=== PATIENT | male | born 1960 | race Caucasian/White ===

== ENCOUNTER 2024-05-31 17:16 | Inpatient (IN) | payer MEDICAID, SELFPAY ==
[2024-05-31 17:42] VITALS: PULSE 102; RESP 16; O2SAT 99; BMI 22.6
[2024-05-31 17:45] VITALS: BP 170/97; PULSE 99; RESP 18; TEMP 37.6; O2SAT 97
--- NOTE | 2024-05-31 18:23 | EKG_ITS ---
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
--- NOTE | 2024-05-31 18:24 | PD.EDRECHK ---
ED Recheck Abnl Lab Rx-RME/HPI General Chief Complaint: Recheck/Abnormal Lab/Rx Stated Complaint: ABNORMAL LABS Time Seen by Provider: 05/31/24 17:49 Arrival date/time: 05/31/24 17:16 RME / HPI RME / HPI narrative: 64-year-old male patient with significant history of diabetes mellitus, was brought in by EMS for evaluation regarding anemia. Apparently patient was noted to have anemia. Patient denies any complaints. Denies any abdominal pain denies any vomiting denies any vomiting blood or blood in the stool. Patient also denies any constipation. Patient is not taking any blood thinner. Related Data Home Medications ?Medication ?Instructions ?Recorded ?Confirmed acetaminophen 325 mg tablet 650 mg PO Q6H PRN Mild Pain (Scale 01/31/23 01/31/23 Score 1-4) acetaminophen 650 mg rectal 650 mg WA Q6H PRN Mild Pain (Scale 01/31/23 01/31/23 suppository Score 1-4) amino acids-protein hydrolysate 15 1 ea PO BID 01/31/23 01/31/23 gram-100 kcal/30 mL oral liquid pkt (Pro-Stat Sugar Free) ascorbic acid (vitamin C) 500 mg 500 mg PO BID 01/31/23 01/31/23 tablet (Vitamin C) bisacodyl 10 mg rectal suppository 10 mg WA Q72H PRN Constipation 01/31/23 01/31/23 docusate sodium 100 mg capsule 100 mg PO QDAY 01/31/23 01/31/23 gabapentin 400 mg capsule 400 mg PO Q8H 01/31/23 01/31/23 insulin regular human 100 unit/mL See Rx Instructions .Route .COMPLEX 01/31/23 01/31/23 injection solution (Humulin R Regular U-100 Insulin) lorazepam 1 mg tablet 1 mg PO Q8H 01/31/23 01/31/23 magnesium hydroxide 400 mg/5 mL 30 ml PO Q48H PRN Constipation 01/31/23 01/31/23 oral suspension (Milk of Magnesia) multivitamin with iron-mineral 1 tab PO QDAY 01/31/23 01/31/23 ondansetron 4 mg disintegrating 4 mg PO Q6H PRN NAUSEA OR VOMITING 01/31/23 01/31/23 tablet scopolamine base 1 mg over 3 days 1 mg topical Q72H 01/31/23 01/31/23 transdermal patch (Transderm-Scop) sennosides 8.6 mg-docusate sodium 1 tab PO BID 01/31/23 01/31/23 50 mg tablet (Senna with Docusate Sodium) trazodone 100 mg tablet 100 mg PO HS 01/31/23 01/31/23 Previous Rx's ?Medication ?Instructions ?Recorded tamsulosin 0.4 mg capsule 0.4 mg PO QDAY 30 days #30 caps 02/02/23 insulin glargine 100 unit/mL (3 20 unit (0.2 mL) subcut QDAY 30 02/13/23 mL) subcutaneous pen (Lantus days #0 mL Solostar U-100 Insulin) olanzapine 15 mg tablet 15 mg PO HS 30 days #30 tabs 02/13/23 Allergies Allergy/AdvReac Type Severity Reaction Status Date / Time No Known Allergies Allergy Verified 10/31/17 10:14 Review of Systems Review of Systems Narrative Review of Systems: Review of system reviewed and within normal limits except mentioned in HPI ED Exam Narrative Physical exam: VITAL SIGNS: Reviewed. GENERAL APPEARANCE: Alert and interactive, follows commands, no acute distress, HEAD AND FACE: Non-traumatic. ENT: PERRL, pink conjunctivitis, eyelid no trauma, Mucous membrane moist. NECK: Supple, nontender, no nuchal rigidity. CHEST: No tenderness, no crepitus, no paradoxical movement, no retractions. LUNGS: Clear, well ventilated, symmetric, no rales, no wheezing, no ronchi, no stridor, good breath sounds bilaterally. HEART: Regular rate, regular rhythm, no murmur, no gallops. ABDOMEN: Soft, positive bowel sounds, nondistended, no guarding, nontender, no rebound, no masses, RECTAL: Deferred. GENITAL: Deferred. NEUROLOGICAL: Gross motor function intact sensory function intact, Appropriate for age. MUSCULOSKELETAL: low back nontender, full range of motion. EXTREMITIES: Nontender, full range of motion. SKIN: Color pink, dry, no rash, no lacerations, no abrasions, no contusions. LYMPHATICS: Deferred. Course Quality Measures none Orders Category Date Time Status Admit to Inpatient Status Routine Admission 05/31/24 21:14 Active Patient Condition Routine Admission 05/31/24 21:14 Ordered Activity as Tolerated Routine Care 05/31/24 21:15 Ordered Bedside Blood Glucose Q6HR Care 05/31/24 21:18 Active COVID-19 Screening Questionnaire NOW Care 05/31/24 20:58 Active Decision to Admit X1 Care 05/31/24 20:58 Completed EKG (ED ONLY) *Do not use* NOW Care 05/31/24 18:23 Completed NPO NOW Care 05/31/24 21:15 Active Notify provider NEEDED Care 05/31/24 21:14 Active Occult Blood,Stool (Nursing) ONCE Care 05/31/24 18:23 Active Sequential Compression Device QSHIFT Care 05/31/24 21:14 Active Transfuse,blood/blood products ONCE Care 05/31/24 18:23 Active Consult to Gastroenterology Stat Cons 05/31/24 20:57 Ordered Diet NPO (NOW) Diet 05/31/24 21:15 Active CXRP [XR chest 1V portable] Stat Exams 05/31/24 21:24 Completed EKG (ED Only) Stat Exams 05/31/24 18:23 Draft Basic Metabolic Panel AM DRAW Lab 06/01/24 05:00 Ordered Basic Metabolic Panel AM DRAW Lab 06/02/24 05:00 Ordered Basic Metabolic Panel AM DRAW Lab 06/03/24 05:00 Ordered CBC AM DRAW Lab 06/01/24 05:00 Ordered CBC AM DRAW Lab 06/02/24 05:00 Ordered CBC AM DRAW Lab 06/03/24 05:00 Ordered CBC Stat Lab 05/31/24 18:30 Completed Comprehensive Metabolic Panel Stat Lab 05/31/24 18:30 Completed Folate Stat Lab 05/31/24 20:16 Received Haptoglobin* Stat Lab 05/31/24 Ordered Iron Panel Stat Lab 05/31/24 20:16 Completed LDH (Lactate Dehydrogenase) Stat Lab 05/31/24 18:30 Completed Partial Thromboplastin Time Stat Lab 05/31/24 18:30 [address] Path Review Blood Smear Stat Lab 05/31/24 18:30 Completed Prothrombin Time with INR Stat Lab 05/31/24 18:30 Completed Red Blood Cells Stat Lab 05/31/24 18:30 Results Reticulocyte Count Stat Lab 05/31/24 20:16 Completed Type and Screen Stat Lab 05/31/24 18:30 Results Urinalysis Stat Lab 05/31/24 18:23 Ordered Vitamin B12 Stat Lab 05/31/24 20:16 Received Acetaminophen Tab [Tylenol Tab] Med 05/31/24 21:14 Active 650 mg PO Q6H PRN Dextrose 50% Syr [D50w Syringe Abboject] Med 05/31/24 21:18 Active 25 ml IV Q15MIN PRN Dextrose 50% Syr [D50w Syringe Abboject] Med 05/31/24 21:18 Active 50 ml IV Q15MIN PRN Glucagon Inj Med 05/31/24 21:18 Active 1 mg IM Q15MIN PRN INSULIN LISPRO (AdmeLOG) [HumaLOG] Med 06/01/24 07:30 Active See Protocol SC AC LORazepam [Ativan Inj] Med 05/31/24 20:26 Discontinued 2 mg IVP X1 ONE Pantoprazole Inj [Protonix Inj] Med 05/31/24 18:29 Discontinued 80 mg IV X1 ONE Pantoprazole/Ns 80Mg IV Premix [Protonix/NS 80mg IV Med 05/31/24 21:16 Active Premix] 80 mg in 100 ml IV Q10H Ringers Lactated 1000 ml [Lactated Ringers] 1,000 ml Med 05/31/24 21:15 Active IV 125 mls/hr Code Status Routine Oth 05/31/24 21:14 Ordered Vital Signs Vital signs: Vital Signs Temperature 99.7 F 05/31/24 17:45 Pulse Rate 99 05/31/24 17:45 Respiratory Rate 18 05/31/24 17:45 Blood Pressure 170/97 H 05/31/24 17:45 Pulse Oximetry (%) 97 05/31/24 17:45 Oxygen Delivery Method Room Air 05/31/24 17:45 Recheck / Abnormal Lab / Rx MDM Narrative MDM Narrative:: 64-year-old male patient with significant history of diabetes mellitus, was brought in by EMS for evaluation regarding anemia. Apparently patient was noted to have anemia. Patient denies any complaints. Denies any abdominal pain denies any vomiting denies any vomiting blood or blood in the stool. Patient also denies any constipation. Patient is not taking any blood thinner. Rectal exam done by me, and the stool looks dark-brown. Tested strongly positive for occult blood Patient hemoglobin today was noted to be 5.3 BUN of 17.8 no leukocytosis noted CMP unremarkable. Chest x-ray showed bronchitis pattern. EKG showed sinus tachycardia, ventricular rate of 101 bpm, no ST segment elevation depression noted. Patient received 2 units of packed RBC in the emergency room. Plan of care discussed with the family the Rubi who agrees to be admitted and to receive blood transfusion also. Spoke with GI specialist Dr. Silverman, and thank you , For comanagement Patient data External records reviewed:: None Clinical information provided by:: patient and family Social determinants that could affect healthcare access:: none Patient has the following chronic illnesses:: diabetes mellitus How is presenting disease/condition affected by chronic disease/condition?: exacerbated by Evaluation data The following diagnostics were reviewed and interpreted by me:: lab results, radiology exam(s) and EKG tracing(s) Lab and/or radiology exams considered but not ordered:: None Interpretation Summary: See results in MDM Medications / Prescriptions Medications or Prescriptions considered but not ordered:: None Medication administrations:: Medication Administration History Acetaminophen (Acetaminophen 325 Mg Tablet) 650 mg PO Q6H PRN PRN Reason: Fever >101.5 Stop: 06/30/24 21:13 Dextrose (Dextrose 50%-Water Inj 50 Ml Syringe) 25 ml IV Q15MIN PRN PRN Reason: BG 50-70 responsive npo pt Stop: 06/30/24 21:17 Dextrose (Dextrose 50%-Water Inj 50 Ml Syringe) 50 ml IV Q15MIN PRN PRN Reason: BG <50 OR BG <70 & pt unresponsive Stop: 06/30/24 21:17 Glucagon (Glucagon Inj 1 Mg Vial) 1 mg IM Q15MIN PRN PRN Reason: BG <70, and no IV access Lactated Ringer's (Lactated Ringers) 1,000 mls @ 125 mls/hr IV .Q8H LISA Stop: 06/30/24 21:14 Pantoprazole Sodium (Protonix/Ns 80mg Iv Premix) 80 mg in 100 mls @ 10 mls/hr IV Q10H LISA Stop: 06/03/24 19:15 Octreotide Acetate 1,000 mcg/ (Sodium Chloride) 102 mls @ 5.1 mls/hr IV .Q20H LISA; Protocol Stop: 06/05/24 21:47 Ceftriaxone Sodium/Dextrose (Rocephin/D5w 1gm Iv Premix) 50 mls @ 100 mls/hr IV QDAY LISA Stop: 06/07/24 21:48 Ceftriaxone Sodium/Dextrose (Rocephin/D5w 1gm Iv Premix) 1 gm in 50 mls @ 100 mls/hr IV X1 ONE Stop: 05/31/24 22:29 Insulin Human Lispro (Insulin Lispro (Admelog) 1 Unit/0.01 Ml Unit) 0 unit SC AC [facility]; Protocol Stop: 07/01/24 07:29 Discontinued Medications Lorazepam (Lorazepam 2 Mg/Ml Vial) 2 mg IVP X1 ONE Stop: 05/31/24 20:27 Last Admin: 05/31/24 20:31 Dose: 2 mg Documented By: Octreotide Acetate (Octreotide Acet Inj 50 Mcg/Ml Vial) 50 mcg IV X1 ONE Stop: 05/31/24 21:47 Pantoprazole Sodium (Pantoprazole Inj 40 Mg Vial) 80 mg IV X1 ONE Stop: 05/31/24 18:30 Last Admin: 05/31/24 18:48 Dose: 80 mg Documented By: IV Protonix, IV Sandostatin, lorazepam IV and 2 units of packed RBC Consultations Consultation(s) initiated? (list below): Yes Consultation #1 (Physician, Specialty, Details): Dr. Silverman, GI specialist on-call thank you Diagnosis Recheck Differential Diagnosis: other (Upper GI bleed, anemia, iron deficiency anemia) Most likely diagnosis given after review of the tests above:: Upper GI bleed, anemia Admission Indicated Admission indicated?: indicated Explain why admission is indicated or not indicated:: For further management due to her GI bleed and severe anemia Admission Request Was there a request for admission?: Yes Admission Attestation Admission request attestation: Discussed case with [Dr Martinez] from Hospitalist service regarding admission. Discussed patients ED course, exam findings, labs, and radiology results. The Hospitalist [agrees ] to accept the patient for admission. Disposition Plan Disposition Plan: Admit Discharge Plan Plan Patient Disposition: Admit Acute Care w/in Hospital Problem List Clinical Impression: Upper gastrointestinal bleeding, Severe anemia
[2024-05-31] MEDS: PANTOPRAZOLE INJ 40 MG VIAL 80 MG IV (18:48)
[2024-05-31 19:17] LABS: Basophils # (Auto) 0.1 Thou/mm3 (0.0-0.2); Basophils % (Auto) 1 % (0-2.5); Eosinophils # (Auto) 0.9 Thou/mm3 (0.0-0.5); Eosinophils % (Auto) 9 % (0-10); Immature Granulocytes % (Auto) 0 % (0-0); Immature Granulocytes Auto 0.02 Thou/mm3 (0.00-0.00); Lymphocytes # (Auto) 1.7 Thou/mm3 (1.0-4.8); Lymphocytes % (Auto) 17 % (10-50); Mean Corpuscular HGB Conc 29.8 g/dl (31.0-37.0); Mean Corpuscular Hemoglobin 16.8 pg (25.0-35.0); Mean Corpuscular Volume 56 fL (80-100); Monocytes # (Auto) 0.5 Thou/mm3 (0.0-0.8); Monocytes % (Auto) 5 % (0-12); Neutrophils # (Auto) 6.6 Thou/mm3 (1.8-7.7); Neutrophils % (Auto) 68 % (37-80); Nucleated Red Blood Cell % 0 /100 WBC (0); Platelet Count 202 Thou/mm3 (140-440); RDW Standard Deviation 34.8 fL (35.1-43.9); Red Blood Count 3.16 Miln/mm3 (4.50-5.90); White Blood Count 9.7 Thou/mm3 (3.8-10.6)
[2024-05-31 19:28] LABS: Alanine Aminotransferase 12 U/L (10-49); Albumin, Serum 3.2 gm/dL (3.4-4.8); Alkaline Phosphatase 58 U/L (46-116); Anion Gap 8 (7-16); Aspartate Amino Transferase 14 U/L (0-34); BUN/Creatinine Ratio 41 Ratio (12-20); Bilirubin,Total 0.2 mg/dL (0.3-1.2); Blood Urea Nitrogen 41 mg/dL (9-23); Calcium (Corrected) 9.6 mg/dL (8.5-10.1); Carbon Dioxide 26.2 mMol/L (20.0-31.0); Chloride 104 mMol/L (98-107); Estimated Creatinine Clearance 67.9 mL/min (>60); Globulin 3.2 gm/dL (2.3-3.5); Glucose 248 mg/dL (74-106); Osmolality,Calculated 293 (275-295); Potassium 4.8 mMol/L (3.4-5.1); Sodium 138 mMol/L (136-145); Total Protein 6.4 gm/dL (5.7-8.2); eGFR > 60 See Note
[2024-05-31 19:35] LABS: Hematocrit 17.8 % (41.0-53.0); Hemoglobin 5.3 g/dL (13.5-16.0)
[2024-05-31 19:37] LABS: INR 1.1 (0.9-1.3); Partial Thromboplastin Time 26.6 Seconds (22.0-36.0); Prothrombin Time 12.1 Seconds (9.0-12.2)
[2024-05-31] MEDS: LORazepam 2 MG/ML VIAL IVP (20:31)
[2024-05-31 20:36] LABS: Path Review Blood Smear Sent to Pathologist
--- NOTE | 2024-05-31 21:20 | EVENTNT_ITS ---
Documentation for date of: 05/31/24 Event Note Event Note: A 64-year-old male presented to the ER from a SNF for evaluation of abnormal labs. He was noted to have anemia with hemoglobin of 6.6 on 05/30. The patient denied abdominal pain, hematemesis, melena, hematochezia, constipation, nausea, vomiting, chest pain, or shortness of breath. He endorsed dizziness and weakness but had no acute complaints at the time of evaluation. On exam, he was alert but exhibited limited mobility, reporting that he was unable to stand or walk. The patient has a history of HTN, DM2 on insulin, diabetic neuropathy, dementia, depression, bipolar disorder, and BPH. Current medications include Acetam inophen, Docusate, Dulcolax, Gabapentin, Insulin Glargine, Lorazepam, Metformin, Multivitamin, Olanzapine, Ondansetron, Scopolamine, Sennosides, Tamsulosin, and Trazodone. Social history includes smoking and alcohol use. He resides in a SNF and was brought in by EMS. He is not on any anticoagulants. In the ER, vital signs recorded as temp 99.7 F, HR 99, RR 18, BP 170/97 mmHg. Lab revealed WBC 9.7, Hb 5.3 (L), Plt 202, Na 138, K 4.8, BUN 41, Cr 1.0, Glucose 248. Rectal exam showed dark-brown stool, positive for occult blood. GI was consulted. The patient was admitted for further evaluation and management. Anemia (likely GI blood loss) #Assessment: - Severe anemia (Hb 5.3), positive fecal occult blood, dark brown stool, dizziness, weakness. - Hemodynamically stable, not on anticoagulants. - Multiple comorbidities (DM2, HTN, dementia), SNF resident with poor mobility. #Plan: - Transfuse2 units PRBCs. - PPI. - NPO - IV. - Monitor hemoglobin/hematocrit daily; trend CBC. - Initiate iron studies, reticulocyte count, B12, folate, LDH, haptoglobin for further anemia workup. - GI to evaluate for possible upper/lower GI source. - Continue monitoring vitals and signs of active bleeding. - Hold NSAIDs if applicable; no anticoagulants per report.
--- NOTE | 2024-05-31 21:24 | XR_ITS ---
Examination: AP chest single view Findings one AP portable upright chest single view Exam date and time: 23/10/2024 2137 hours INDICATIONS: Shortness of breath today. FINDINGS: Normal heart size Mild accentuation of bronchovascular markings. No lobar pneumonia or pulmonary edema Old deformity right clavicle Mild vascular congestion IMPRESSION: Bronchitis pattern
--- NOTE | 2024-05-31 21:37 | PD.IMCONS ---
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[employer] for a hemoglobin hematocrit of 5.3 and 17.8 and grossly Hemoccult positive stool Patient was brought into the emergency room because of the anemia And rectal examination showed grossly Hemoccult positive stool Patient does have a history of dementia no history obtainable bipolar disorder BPH diabetic neuropathy and essential hypertension cc:: cc: Review of Systems Review of Systems ROS Unobtainable: unobtainable due to medical condition Past Medical History Surgical History OTHER SURGICAL HX: As in the history of present illness Meds Home Medications and Allergies Home Medications ?Medication ?Instructions ?Recorded ?Confirmed ?Type acetaminophen 325 mg tablet 650 mg PO Q6H PRN Mild Pain (Scale 01/31/23 06/01/24 History Score 1-4) acetaminophen 650 mg rectal 650 mg MD Q6H PRN Mild Pain (Scale 01/31/23 06/01/24 History suppository Score 1-4) amino acids-protein hydrolysate 15 1 ea PO BID 01/31/23 06/01/24 History gram-100 kcal/30 mL oral liquid pkt (Pro-Stat Sugar Free) ascorbic acid (vitamin C) 500 mg 500 mg PO BID 01/31/23 06/01/24 History tablet (Vitamin C) bisacodyl 10 mg rectal suppository 10 mg MD Q72H PRN Constipation 01/31/23 06/01/24 History docusate sodium 100 mg capsule 100 mg PO QDAY 01/31/23 06/01/24 History gabapentin 400 mg capsule 400 mg PO Q8H 01/31/23 06/01/24 History insulin regular human 100 unit/mL See Rx Instructions .Route .COMPLEX 01/31/23 06/01/24 History injection solution (Humulin R Regular U-100 Insulin) lorazepam 1 mg tablet 1 mg PO Q8H 01/31/23 06/01/24 History magnesium hydroxide 400 mg/5 mL 30 ml PO Q48H PRN Constipation 01/31/23 06/01/24 History oral suspension (Milk of Magnesia) multivitamin with iron-mineral 1 tab PO QDAY 01/31/23 06/01/24 History ondansetron 4 mg disintegrating 4 mg PO Q6H PRN NAUSEA OR VOMITING 01/31/23 06/01/24 History tablet scopolamine base 1 mg over 3 days 1 mg topical Q72H 01/31/23 06/01/24 History transdermal patch (Transderm-Scop) sennosides 8.6 mg-docusate sodium 1 tab PO BID 01/31/23 06/01/24 History 50 mg tablet (Senna with Docusate Sodium) trazodone 100 mg tablet 100 mg PO HS 01/31/23 06/01/24 History Allergies Allergy/AdvReac Type Severity Reaction Status Date / Time No Known Allergies Allergy Verified 10/31/17 10:14 Exam Vital Signs Temp Pulse Resp BP Pulse Ox O2 Del Method 99.7 F 99 18 170/97 H 97 Room Air 05/31/24 17:45 05/31/24 17:45 05/31/24 17:45 05/31/24 17:45 05/31/24 17:45 05/31/24 17:45 Constitutional Comments: Chronically ill-appearing Routine Respiratory Exam Comments: Normal to auscultation Routine Abdominal Exam Comments: Soft nontender Results Labs 06/01/24 06:06 06/01/24 06:06 Labs: Short CBC 05/31/24 Range/Units 18:30 WBC 9.7 (3.8-10.6) Thou/mm3 Hgb 5.3 L* (13.5-16.0) g/dL Hct 17.8 L* (41.0-53.0) % Plt Count 202 (140-440) Thou/mm3 BMP 05/31/24 18:30 Sodium 138 Potassium 4.8 Chloride 104 Carbon Dioxide 26.2 BUN 41 H Creatinine 1.0 Glucose 248 H Calcium 9.0 Liver Function 05/31/24 Range/Units 18:30 Total Bilirubin 0.2 L (0.3-1.2) mg/dL AST 14 (0-34) U/L ALT 12 (10-49) U/L Alkaline Phosphatase 58 (46-116) U/L Albumin 3.2 L (3.4-4.8) gm/dL Assessment and Plan Additional Assessment & Plan Additional Plan: # Hemoccult positive stool # Acute posthemorrhagic anemia Plan Agree with the blood transfusion Once patient adequately transfused we will consider doing initially fiberoptic esophagogastroduodenoscopy with possible therapeutic intervention possible biopsy If negative may need a colonoscopy but will be difficult to prep this patient for colonoscopy because of his underlying dementia Other medical problems include Diabetes mellitus with peripheral neuropathy Dementia Bipolar disorder Essential hypertension BPH Thank you very much for the opportunity to participate in the care of this patient
--- NOTE | 2024-05-31 21:42 | PD.RESHP ---
Documentation for date of: 05/31/24 HPI History of Present Illness Chief complaint: Low Hb History of present illness: HPI:A 64-year-old male patient known case of diabetes mellitus, hypertension, diabetic neuropathy, dementia, hep C, was brought from halfway facility after he was found to have severe anemia. Patient reported cough that has been going on for 1 year however he denied any other symptoms. Patient denied any hematemesis hemoptysis or hematochezia. Patient denied any abdominal pain, skin rash, or bleeding tendency. Patient denied any fever, chills, or excessive sweating however he reported mild fatigue. At the ED patient was found to have blood pressure of 170/97, pulse rate of 99, respiratory rate 18, normal temperature and saturating 97 on room air. His CBC showed hemoglobin of 5.3, with MCV of 56, MCH of 16.8, platelets were within normal limits of 202, CMP showed BUN of 41, glucose of 248. T. bili was within normal limits. Patient received 2 units of blood in the ED, and was started on Protonix drip. GI specialist Dr. Silverman was consulted he recommended to admit the patient for possible EGD. PMH: As above PSX: Denied PFX: A halfway facility resident Social hx: Alcohol: Remote history of 27 years of alcohol use disorder Tobacco: History of 35 years of 2 pack smoking per day Illicit drugs: Remote history of IV heroin abuse, cocaine, methamphetamine use disorder. Allergies: No known allergies Review of Systems Review of Systems Systems Reviewed: All systems reviewed, normal except as documented Exam Vital Signs Temp Pulse Resp BP Pulse Ox O2 Del Method 99.7 F 99 18 170/97 H 97 Room Air 05/31/24 17:45 05/31/24 17:45 05/31/24 17:45 05/31/24 17:45 05/31/24 17:45 05/31/24 17:45 Narrative Exam GEN: AOx3, able to speak full sentences. HEENT: NC/AC, oral mucosa moist, neck supple. CVS: RRR, S1-S2 present, no murmurs appreciated. RESP: CTAB. GI: Soft,non distended, non tender, NBS. MSK: Able to move all 4 limbs, no lower extremity edema. SKIN: Scaly skin on the lower extremities. [employer]: Generalized weakness. Results: Labs 05/31/24 18:30 05/31/24 18:30 Labs: Short CBC 05/31/24 Range/Units 18:30 WBC 9.7 (3.8-10.6) Thou/mm3 Hgb 5.3 L* (13.5-16.0) g/dL Hct 17.8 L* (41.0-53.0) % Plt Count 202 (140-440) Thou/mm3 BMP 05/31/24 18:30 Sodium 138 Potassium 4.8 Chloride 104 Carbon Dioxide 26.2 BUN 41 H Creatinine 1.0 Glucose 248 H Calcium 9.0 Liver Function 05/31/24 Range/Units 18:30 Total Bilirubin 0.2 L (0.3-1.2) mg/dL AST 14 (0-34) U/L ALT 12 (10-49) U/L Alkaline Phosphatase 58 (46-116) U/L Albumin 3.2 L (3.4-4.8) gm/dL Quality Measures Quality Measures VTE prophylaxis Medications Home Medications and Allergies Home Medications ?Medication ?Instructions ?Recorded ?Confirmed ?Type acetaminophen 325 mg tablet 650 mg PO Q6H PRN Mild Pain (Scale 01/31/23 01/31/23 History Score 1-4) acetaminophen 650 mg rectal 650 mg FL Q6H PRN Mild Pain (Scale 01/31/23 01/31/23 History suppository Score 1-4) amino acids-protein hydrolysate 15 1 ea PO BID 01/31/23 01/31/23 History gram-100 kcal/30 mL oral liquid pkt (Pro-Stat Sugar Free) ascorbic acid (vitamin C) 500 mg 500 mg PO BID 01/31/23 01/31/23 History tablet (Vitamin C) bisacodyl 10 mg rectal suppository 10 mg FL Q72H PRN Constipation 01/31/23 01/31/23 History docusate sodium 100 mg capsule 100 mg PO QDAY 01/31/23 01/31/23 History gabapentin 400 mg capsule 400 mg PO Q8H 01/31/23 01/31/23 History insulin regular human 100 unit/mL See Rx Instructions .Route .COMPLEX 01/31/23 01/31/23 History injection solution (Humulin R Regular U-100 Insulin) lorazepam 1 mg tablet 1 mg PO Q8H 01/31/23 01/31/23 History magnesium hydroxide 400 mg/5 mL 30 ml PO Q48H PRN Constipation 01/31/23 01/31/23 History oral suspension (Milk of Magnesia) multivitamin with iron-mineral 1 tab PO QDAY 01/31/23 01/31/23 History ondansetron 4 mg disintegrating 4 mg PO Q6H PRN NAUSEA OR VOMITING 01/31/23 01/31/23 History tablet scopolamine base 1 mg over 3 days 1 mg topical Q72H 01/31/23 01/31/23 History transdermal patch (Transderm-Scop) sennosides 8.6 mg-docusate sodium 1 tab PO BID 01/31/23 01/31/23 History 50 mg tablet (Senna with Docusate Sodium) trazodone 100 mg tablet 100 mg PO HS 01/31/23 01/31/23 History Allergies Allergy/AdvReac Type Severity Reaction Status Date / Time No Known Allergies Allergy Verified 10/31/17 10:14 Visit Medications Acetaminophen (Acetaminophen 325 Mg Tablet) 650 mg PO Q6H PRN PRN Reason: Fever >101.5 Stop: 06/30/24 21:13 Dextrose (Dextrose 50%-Water Inj 50 Ml Syringe) 25 ml IV Q15MIN PRN PRN Reason: BG 50-70 responsive npo pt Stop: 06/30/24 21:17 Dextrose (Dextrose 50%-Water Inj 50 Ml Syringe) 50 ml IV Q15MIN PRN PRN Reason: BG <50 OR BG <70 & pt unresponsive Stop: 06/30/24 21:17 Glucagon (Glucagon Inj 1 Mg Vial) 1 mg IM Q15MIN PRN PRN Reason: BG <70, and no IV access Lactated Ringer's (Lactated Ringers) 1,000 mls @ 125 mls/hr IV .Q8H LISA Stop: 06/30/24 21:14 Pantoprazole Sodium (Protonix/Ns 80mg Iv Premix) 80 mg in 100 mls @ 10 mls/hr IV Q10H LISA Stop: 06/03/24 19:15 Insulin Human Lispro (Insulin Lispro (Admelog) 1 Unit/0.01 Ml Unit) 0 unit SC AC LISA; Protocol Stop: 07/01/24 07:29 Discontinued Medications Lorazepam (Lorazepam 2 Mg/Ml Vial) 2 mg IVP X1 ONE Stop: 05/31/24 20:27 Last Admin: 05/31/24 20:31 Dose: 2 mg Pantoprazole Sodium (Pantoprazole Inj 40 Mg Vial) 80 mg IV X1 ONE Stop: 05/31/24 18:30 Last Admin: 05/31/24 18:48 Dose: 80 mg Assessment & Plan Plan Summary:A 64-year-old male patient known case of diabetes mellitus, hypertension, diabetic neuropathy, dementia, hep C, was brought from halfway facility after he was found to have severe anemia. Patient was found to have hemoglobin level of 5.2. Patient was given 2 units of blood in the ED. Patient was admitted for severe anemia workup. Assessment and plan #Severe microcytic anemia most likely secondary to GI bleed #Liver cirrhosis workup #History of hep C Patient presented with severe microcytic anemia most likely secondary to GI bleed. Patient chart showed he had history of hep C positive that was tested in 2019. Patient reported that he has history of heroin IV abuse, also he has history of alcohol use disorder in which he was drinking a whole pack per day for 27 years. Patient denied any hematochezia, hematemesis, or hemoptysis. Stool occult blood tested strongly positive for blood. LDH was normal, total bilirubin was also normal Plan ? Admit patient to med/tele ? H&H posttransfusion ? Continue patient on Protonix drip ? Start the patient on octreotide 50 mcg x 1 and then continue octreotide drip 50 mcg/h ? GI consultation was sent, recommendations appreciated ? Send for iron panel ? Sent for hepatitis panel and HIV A and B antigen test ? Abdomen/pelvis CT scan ordered to assess for any liver lesion, ascites, or liver cirrhosis, follow-up on the results ? Vitamin B12 and folate level test was sent follow-up on the results ? Daily CBC, CMP ? Ceftriaxone hyperkalemia treatment for suspected GI bleed secondary to liver cirrhosis. ? Follow-up on the haptoglobin level #History of diabetes mellitus Plan ? Will put the patient on insulin sliding scale ? Hypoglycemia protocol ? A1c level #History of hypertension Plan ? Start the patient on labetalol 10 mg IV as needed if SBP more than 180 ? Start the patient on nifedipine 30 mg p.o. ? Do med reconciliation and resume home medications as appropriate #History of dementia Plan ? Resume patient home medication trazodone 50 mg at bedtime ? Resume home medication olanzapine 10 mg p.o. daily Hospital Maintenance: FEN: N.p.o. DVT ppx: SCD GI ppx: Protonix IV lines: PIV Camejo: None Code status: DNR Dispo: Med/tele Patient's plan and care discussed with my attending, Dr. Juan Davis MD Internal Medicine PGY-2 Attending Provider Attestation/Addendum Pt was evaluated and plan formulated together with the housestaff team. I have reviewed the residents note above and agree with most of its content. Please refer to the residents note for additional details.
--- NOTE | 2024-05-31 21:48 | XR_ITS ---
Examination: CT abdomen and pelvis without contrast. Coronal 3-D reconstructions. Sagittal 2-D reconstructions. Date and time of exam:May 31, 2024 at 10:50 PM INDICATIONS: Epigastric pain beginning 2 days ago COMPARISON: January 29, 2023 CTDI: vol (mGy): 6.08 DLP: (mGycm): 359 Technique: Axial images of the abdomen have been obtained, 3 mm slice thickness Intravenous contrast material has not been administered. Low dose protocols were performed. One or more of the following dose reduction techniques were used; automated exposure control, adjustment of the mA and/or KV according to patient size, use of iterative reconstruction technique. Findings: Thickening of the wall of the esophagus No focal liver or splenic lesion No gallstones Pancreatic calcifications no current pancreatitis Perinephric stranding Aorta normal size Abundant stool throughout the colon Normal appendix No bowel obstruction No diverticulitis Transverse posterior dimension 4.3 cm Rectal wall thickening Small fat-containing inguinal hernia Moderate osteopenia IMPRESSION: Thickening of the lower wall of the esophagus, consider reflux esophagitis Pancreatic calcifications seen with prior episodes of pancreatitis Perinephric stranding, consider urinary tract infection Abundant stool throughout the colon no obstruction. Normal appendix Rectal wall thickening, differential would include proctitis, or perirectal tumor not excluded, recommend direct inspection Moderate prostatomegaly
[2024-05-31 21:50] LABS: Iron 37 mcg/dL (65-175); Percent Iron Saturation 12 % (20-55); Total Iron Binding Capacity 287 mcg/dL (250-425); Unsaturated Iron Binding 250 (225-295)
[2024-05-31 21:58] LABS: Immature Reticulocyte Fraction 24.6 % (2.3-13.4); Reticulocyte % (Auto) 1.5 % (0.5-1.5); Reticulocyte Absolute Auto 56.4 Biln/L (25.0-75.0); Reticulocyte Hgb Content 17.2 pg (28.0-35.0)
[2024-05-31 22:12] LABS: LDH (Lactate Dehydrogenase) 184 U/L (120-246)
[2024-05-31 23:33] VITALS: BP 130/74; PULSE 97; RESP 18; TEMP 37.2; O2SAT 98
[2024-05-31] MEDS: RINGERS LACTATED 1000 ML 1,000 ML 125 ML IV (23:49)
[2024-05-31] MEDS: OCTREOTIDE ACET INJ 50 mCg/ML VIAL IV (23:50)
[2024-05-31] MEDS: OCTREOTIDE ACET INJ 1,000 MCG in SODIUM CHLORIDE 0.9% 100 ML 5.1 MCG IV (23:50)
[2024-05-31] MEDS: cefTRIAXone/D5w 1gm IV premix 1 GM/50 ML BAG IV (23:50)
[2024-05-31] MEDS: PANTOPRAZOLE/NS 80MG IV PREMIX 80 MG/100 ML BAG 10 MG IV (23:51)
[2024-05-31 23:52] VITALS: BP 158/88; PULSE 88; RESP 18; TEMP 37.1; O2SAT 98
[2024-06-01] VITALS (19 sets, daily range): BP systolic 146–200; BP diastolic 83–109; PULSE 80–94; RESP 14–90; TEMP 36.3–37.3; O2SAT 95–100
--- NOTE | 2024-06-01 04:16 | PC.NURSE ---
first unit of PRBC done at 0245. no adverse reactions noted. Pt resting quietly VS stable. Pt appears in NAD.
[2024-06-01] MEDS: LABETALOL INJ 5 MG/ML VIAL 20 ML 10 MG IVP (05:39)
[2024-06-01] MEDS: RINGERS LACTATED 1000 ML 1,000 ML 125 ML IV ×3 (05:40→23:13)
[2024-06-01 06:17] LABS: Basophils # (Auto) 0.1 Thou/mm3 (0.0-0.2); Basophils % (Auto) 1 % (0-2.5); Eosinophils # (Auto) 1.1 Thou/mm3 (0.0-0.5); Eosinophils % (Auto) 13 % (0-10); Hematocrit 27.7 % (41.0-53.0); Hemoglobin 8.9 g/dL (13.5-16.0); Immature Granulocytes % (Auto) 0 % (0-0); Immature Granulocytes Auto 0.03 Thou/mm3 (0.00-0.00); Lymphocytes # (Auto) 2.2 Thou/mm3 (1.0-4.8); Lymphocytes % (Auto) 26 % (10-50); Mean Corpuscular HGB Conc 32.1 g/dl (31.0-37.0); Mean Corpuscular Hemoglobin 20.4 pg (25.0-35.0); Mean Corpuscular Volume 63 fL (80-100); Monocytes # (Auto) 0.5 Thou/mm3 (0.0-0.8); Monocytes % (Auto) 6 % (0-12); Neutrophils # (Auto) 4.5 Thou/mm3 (1.8-7.7); Neutrophils % (Auto) 54 % (37-80); Nucleated Red Blood Cell % 0 /100 WBC (0); Platelet Count 182 Thou/mm3 (140-440); RDW Standard Deviation 56.2 fL (35.1-43.9); Red Blood Count 4.37 Miln/mm3 (4.50-5.90); White Blood Count 8.4 Thou/mm3 (3.8-10.6)
[2024-06-01 06:54] LABS: Anion Gap 7 (7-16); BUN/Creatinine Ratio 34 Ratio (12-20); Blood Urea Nitrogen 34 mg/dL (9-23); Calcium 8.4 mg/dL (8.3-10.6); Carbon Dioxide 23.9 mMol/L (20.0-31.0); Chloride 106 mMol/L (98-107); Estimated Creatinine Clearance 67.9 mL/min (>60); Glucose 318 mg/dL (74-106); Osmolality,Calculated 293 (275-295); Potassium 4.8 mMol/L (3.4-5.1); Sodium 137 mMol/L (136-145); eGFR > 60 See Note
[2024-06-01 07:03] LABS: HIV (1&2) Antibody Rapid Non-Reactive
--- NOTE | 2024-06-01 07:49 | PC.NURSE ---
pt denies any pain or discomfort at this time. pt appears confused, states he is being setup, and that he doesn't know why he is the one that has to give up his spot. When this nurse asked further questions, pt could not elaborate, pt was reminded he was in the hospital. Previous nurse did say pt was a little confused. will continue w/poc.
[2024-06-01] MEDS: INSULIN LISPRO (AdmeLOG) 1 UNIT/0.01 ML UNIT SC ×3 (08:14→17:49)
[2024-06-01] MEDS: PANTOPRAZOLE/NS 80MG IV PREMIX 80 MG/100 ML BAG 10 MG IV ×2 (08:21→19:03)
--- NOTE | 2024-06-01 08:23 | ESPR_ITS ---
<Statement entered by Lokesh Lawler MD - 06/01/24 17:12> I have discussed and was present for the essential components of the history, physical examination, diagnosis, and treatment plan with the resident. I agree with the patient's care as documented by the resident and amended herein by me. Lokesh Lawler MD FACP. Documentation for date of: 06/01/24 Subjective Subjective Interval history: Patient seen at the bedside found altered, pulling IV lines, aggressive. 1X dose of Haldol given. Vital signs stable at this time. Labs significant for uptrending hemoglobin after 2 PRBC transfusions. Pending evaluation by gastroenterology services. Exam Vital Signs Temp Pulse Resp BP Pulse Ox O2 Del Method 98.1 F 84 84 H 150/90 H 95 Room Air 06/01/24 06:09 06/01/24 06:09 06/01/24 07:00 06/01/24 07:00 06/01/24 07:00 06/01/24 04:26 Narrative Exam Physical Exam GENERAL: NAD, disheveled HEENT: Moist mucosa. Eyes open, symmetrical, & clear CARDIO: Heart RRR, no obvious murmurs PULM: No noted coughing/dyspnea CTA B/L, no R/W/R GI: Abdomen soft, nondistended, no pain on palpation. BSx4 SKIN/MSK/EXT: no pain on palpation. Pedal pulses present B/L NEURO: AAOx3, no focal neuro deficits, able to move all 4 extremities Objective Labs 06/01/24 06:06 06/01/24 06:06 Labs: Laboratory Results - last 24 hr 05/31/24 05/31/24 05/31/24 18:30 18:30 20:16 WBC 9.7 RBC 3.16 L Hgb 5.3 L* Hct 17.8 L* MCV 56 L MCH 16.8 L MCHC 29.8 L RDW Std Deviation 34.8 L Plt Count 202 Neut % (Auto) 68 Lymph % (Auto) 17 [place] % (Auto) 5 Eos % (Auto) 9 Baso % (Auto) 1 Neut # (Auto) 6.6 Lymph # (Auto) 1.7 [place] # (Auto) 0.5 Eos # (Auto) 0.9 H Baso # (Auto) 0.1 Immature Gran # (Auto) 0.02 H Absolute Nucleated RBC 0.00 Immature Gran % 0 Nucleated RBC % 0 Smear Path Review Sent to Pathologist Retic Count (auto) 1.5 Absolute Retic 56.4 Immature Retic Fraction 24.6 H Retic Hgb Content CHr 17.2 L PT 12.1 INR 1.1 APTT 26.6 Sodium 138 Potassium 4.8 Chloride 104 Carbon Dioxide 26.2 Anion Gap 8 BUN 41 H Creatinine 1.0 Estim Creat Clear Calc 67.9 eGFR > 60 BUN/Creatinine Ratio 41 H Glucose 248 H Calculated Osmolality 293 Calcium 9.0 Corrected Calcium 9.6 Iron 37 L TIBC 287 Iron Saturation 12 L Unsat Iron Binding 250 Total Bilirubin 0.2 L AST 14 ALT 12 Alkaline Phosphatase 58 Lactate Dehydrogenase 184 Cancelled Total Protein 6.4 Albumin 3.2 L Globulin 3.2 Albumin/Globulin Ratio 1.0 L HIV 1&2 Antibody Rapid Blood Type A Positive Antibody Screen NEGATIVE Crossmatch See Detail Blood Bank Wristband ID Yes 06/01/24 06:06 WBC 8.4 RBC 4.37 L Hgb 8.9 L D Hct 27.7 L MCV 63 L MCH 20.4 L MCHC 32.1 RDW Std Deviation 56.2 H Plt Count 182 Neut % (Auto) 54 Lymph % (Auto) 26 [place] % (Auto) 6 Eos % (Auto) 13 H Baso % (Auto) 1 Neut # (Auto) 4.5 Lymph # (Auto) 2.2 [place] # (Auto) 0.5 Eos # (Auto) 1.1 H Baso # (Auto) 0.1 Immature Gran # (Auto) 0.03 H Absolute Nucleated RBC 0.00 Immature Gran % 0 Nucleated RBC % 0 Smear Path Review Retic Count (auto) Absolute Retic Immature Retic Fraction Retic Hgb Content CHr PT INR APTT Sodium 137 Potassium 4.8 Chloride 106 Carbon Dioxide 23.9 Anion Gap 7 BUN 34 H Creatinine 1.0 Estim Creat Clear Calc 67.9 eGFR > 60 BUN/Creatinine Ratio 34 H Glucose 318 H D Calculated Osmolality 293 Calcium 8.4 Corrected Calcium Iron TIBC Iron Saturation Unsat Iron Binding Total Bilirubin AST ALT Alkaline Phosphatase Lactate Dehydrogenase Total Protein Albumin Globulin Albumin/Globulin Ratio HIV 1&2 Antibody Rapid Non-Reactive Blood Type Antibody Screen Crossmatch Blood Bank Wristband ID Quality Measures Quality Measures VTE prophylaxis Assessment & Plan Assessment Current Active Medications: Generic Name Dose Route Start Last Admin Trade Name Freq PRN Reason Stop Dose Admin Acetaminophen 650 mg 05/31/24 21:14 Acetaminophen 325 Mg Tablet PO 06/30/24 21:13 Q6H PRN Fever >101.5 Dextrose 25 ml 05/31/24 21:18 Dextrose 50%-Water Inj 50 Ml Syringe IV 06/30/24 21:17 Q15MIN PRN BG 50-70 responsive npo pt Dextrose 50 ml 05/31/24 21:18 Dextrose 50%-Water Inj 50 Ml Syringe IV 06/30/24 21:17 Q15MIN PRN BG <50 OR BG <70 & pt unresponsive Glucagon 1 mg 05/31/24 21:18 Glucagon Inj 1 Mg Vial IM Q15MIN PRN BG <70, and no IV access Lactated Ringer's 1,000 mls @ 125 mls/hr 05/31/24 21:15 06/01/24 05:40 Lactated Ringers IV 06/30/24 21:14 125 mls/hr .Q8H LISA Administration Pantoprazole Sodium 80 mg in 100 mls @ 10 mls/hr 05/31/24 21:16 05/31/24 23:51 Protonix/Ns 80mg Iv Premix IV 06/03/24 19:15 10 mls/hr Q10H LISA Administration Octreotide Acetate 1,000 mcg/ 102 mls @ 5.1 mls/hr 05/31/24 21:47 05/31/24 23:50 Sodium Chloride IV 06/05/24 21:47 50 mcg/hr .Q20H LISA 5.1 mls/hr Administration Protocol 50 MCG/HR Ceftriaxone Sodium/Dextrose 1 gm in 50 mls @ 100 mls/hr 06/01/24 21:00 Rocephin/D5w 1gm Iv Premix IV 06/08/24 20:59 QDAY@2100 LISA Insulin Human Lispro 0 unit 06/01/24 07:30 Insulin Lispro (Admelog) 1 Unit/0.01 Ml Unit SC 07/01/24 07:29 AC LISA Protocol Labetalol HCl 10 mg 06/01/24 05:05 Labetalol Inj 5 Mg/Ml Vial 20 Ml IVP 07/01/24 05:14 Q2H PRN FOR SBP equal to or ABOVE 180 Olanzapine 10 mg 06/01/24 09:00 Olanzapine 5 Mg Tablet PO 07/01/24 08:59 QDAY LISA Trazodone HCl 50 mg 06/01/24 21:00 Trazodone Hcl 50 Mg Tablet PO 07/01/24 20:59 HS [facility] Plan 64-year-old male patient known case of diabetes mellitus, hypertension, diabetic neuropathy, dementia, hep C, was brought from assisted facility after he was found to have severe anemia. Patient was found to have hemoglobin level of 5.2. Patient was given 2 units of blood in the ED. Patient was admitted for severe anemia workup. #Severe microcytic anemia most likely secondary to GI bleed #Liver cirrhosis workup #History of hep C Patient presented with severe microcytic anemia most likely secondary to GI bleed. Patient chart showed he had history of hep C positive that was tested in 2019. Patient reported that he has history of heroin IV abuse, also he has history of alcohol use disorder in which he was drinking a whole pack per day for 27 years. Patient denied any hematochezia, hematemesis, or hemoptysis. Stool occult blood tested strongly positive for blood. LDH was normal, total bilirubin was also normal Abdomen pelvis CT showed: Thickening of the lower wall of the esophagus, consider reflux esophagitis. Pancreatic calcifications seen with prior episodes of pancreatitis. Perinephric stranding, consider urinary tract infection. Abundant stool throughout the colon no obstruction.Normal appendix, Rectal wall thickening, differential would include proctitis, or perirectal tumor not excluded, recommend direct inspection, Moderate prostatomegaly HIV negative ? Continue patient on Protonix drip ? continue octreotide drip 50 mcg/h ? GI consultation was sent, recommendations appreciated ? Sent for hepatitis panel ? Vitamin B12 and folate level test was sent follow-up on the results ? Ceftriaxone for suspected GI bleed secondary to liver cirrhosis. ? Follow-up on the haptoglobin level #History of diabetes mellitus Plan ? Will put the patient on insulin sliding scale ? Hypoglycemia protocol ? A1c level #History of hypertension ? on labetalol 10 mg IV as needed if SBP more than 180 ? on nifedipine 30 mg p.o. ? Do med reconciliation and resume home medications as appropriate #History of dementia ? Resume patient home medication trazodone 50 mg at bedtime ? Resume home medication olanzapine 10 mg p.o. daily Case discussed with my attending Dr. Bucky Casillas MD PGY-1 Disposition: Tele Fluids: LR Feeding: NPO Thrombo prophylaxis: SCDs Gastric Ulcer prophylaxis: Pantoprazole CODE STATUS: Full code
--- NOTE | 2024-06-01 08:53 | PC.NURSE ---
PT PULLED OUT IV TO RIGHT HAND, THEN BEGAN THREATENING THIS RN, WHEN THIS RN WAS ATTEMPTING TO PREVENT HIM FROM PULLING OUT SECOND IV. FELLOW NURSE CAME TO BEDSIDE TO ASSIST WITH SECURING SECOND IV W/COBAND IN ATTEMPT TO HIDE IV FROM PT. PROVIDER WAS CALLED, GAVER TELEPHONE ORDER TO GIVE 50 IM HALDOL, AND ATTEMPT ANOTHER LINE.
[2024-06-01] MEDS: HALOPERIDOL LACT INJ 5 MG/ML VIAL IM ×2 (09:28→17:46)
--- NOTE | 2024-06-01 11:38 | PC.CC ---
Patient is a 64 year-old male who presents to the hospital for abnormal labs. Samantha BRITO made [id number] contact with patient. ASW introduced self, role, and reason for visit. Patient appeared alert and oriented to self, location, and situation. Patient was pleasant and engaged in initial assessment. Patient reports he lives at home with his , Ivonne Handy. Patient reports Ivonne is his medical decision maker should something happen to him and he is unable to make his own medical decisions. At home patient ambulates with a walker and requires assistance with his ADLs. Patient reports he does not use any oxygen at home. Patient was unable to provide name of primary care provider and reports that he uses [facility] for prescription medication. Upon discharge patient plans to return back home. director of residential services to follow up with any discharge needs.
--- NOTE | 2024-06-01 14:36 | PC.NURSE ---
1330 PT PULLED OUT LEFT IV, NEW ONE PLACED TO LEFT FA. WRAPPED W/ COBAN. INCONT CARE PROVIDED.
--- NOTE | 2024-06-01 18:37 | PC.NURSE ---
Patient exhibited agitation and agression towards staff and attempted to remove lines. The assinged 1 to 1 sitter and additional staff were unable to redirect the patient. MD was contacted and an order for soft wrist restraints was obtained, and the restraints were placed on the patient. This nurse attempted to contact the POC x3 (Ivonne) and left a message all attempts to reach family were unsuccessful, endorsed to b2b sales executive.
--- NOTE | 2024-06-01 18:45 | ESPR_ITS ---
Documentation for date of: 06/01/24 Subjective Subjective Interval history: Patient evaluated In soft restraints Patient has been transfused to hemoglobin 8.9 hematocrit 27.7 Will schedule for upper endoscopy for tomorrow morning Exam Vital Signs Temp Pulse Resp BP Pulse Ox O2 Del Method 97.4 F 87 16 180/92 H 97 Room Air 06/01/24 16:00 06/01/24 16:00 06/01/24 16:00 06/01/24 16:00 06/01/24 16:00 06/01/24 16:00 Objective Labs 06/01/24 06:06 06/01/24 06:06 Labs: Laboratory Results - last 24 hr 05/31/24 05/31/24 05/31/24 18:30 18:30 20:16 WBC 9.7 RBC 3.16 L Hgb 5.3 L* Hct 17.8 L* MCV 56 L MCH 16.8 L MCHC 29.8 L RDW Std Deviation 34.8 L Plt Count 202 Neut % (Auto) 68 Lymph % (Auto) 17 [place] % (Auto) 5 Eos % (Auto) 9 Baso % (Auto) 1 Neut # (Auto) 6.6 Lymph # (Auto) 1.7 [place] # (Auto) 0.5 Eos # (Auto) 0.9 H Baso # (Auto) 0.1 Immature Gran # (Auto) 0.02 H Absolute Nucleated RBC 0.00 Immature Gran % 0 Nucleated RBC % 0 Smear Path Review Sent to Pathologist Retic Count (auto) 1.5 Absolute Retic 56.4 Immature Retic Fraction 24.6 H Retic Hgb Content CHr 17.2 L PT 12.1 INR 1.1 APTT 26.6 Sodium 138 Potassium 4.8 Chloride 104 Carbon Dioxide 26.2 Anion Gap 8 BUN 41 H Creatinine 1.0 Estim Creat Clear Calc 67.9 eGFR > 60 BUN/Creatinine Ratio 41 H Glucose 248 H Calculated Osmolality 293 Calcium 9.0 Corrected Calcium 9.6 Iron 37 L TIBC 287 Iron Saturation 12 L Unsat Iron Binding 250 Total Bilirubin 0.2 L AST 14 ALT 12 Alkaline Phosphatase 58 Lactate Dehydrogenase 184 Cancelled Total Protein 6.4 Albumin 3.2 L Globulin 3.2 Albumin/Globulin Ratio 1.0 L HIV 1&2 Antibody Rapid Blood Type A Positive Antibody Screen NEGATIVE Crossmatch See Detail Blood Bank Wristband ID Yes 06/01/24 06:06 WBC 8.4 RBC 4.37 L Hgb 8.9 L D Hct 27.7 L MCV 63 L MCH 20.4 L MCHC 32.1 RDW Std Deviation 56.2 H Plt Count 182 Neut % (Auto) 54 Lymph % (Auto) 26 [place] % (Auto) 6 Eos % (Auto) 13 H Baso % (Auto) 1 Neut # (Auto) 4.5 Lymph # (Auto) 2.2 [place] # (Auto) 0.5 Eos # (Auto) 1.1 H Baso # (Auto) 0.1 Immature Gran # (Auto) 0.03 H Absolute Nucleated RBC 0.00 Immature Gran % 0 Nucleated RBC % 0 Smear Path Review Retic Count (auto) Absolute Retic Immature Retic Fraction Retic Hgb Content CHr PT INR APTT Sodium 137 Potassium 4.8 Chloride 106 Carbon Dioxide 23.9 Anion Gap 7 BUN 34 H Creatinine 1.0 Estim Creat Clear Calc 67.9 eGFR > 60 BUN/Creatinine Ratio 34 H Glucose 318 H D Calculated Osmolality 293 Calcium 8.4 Corrected Calcium Iron TIBC Iron Saturation Unsat Iron Binding Total Bilirubin AST ALT Alkaline Phosphatase Lactate Dehydrogenase Total Protein Albumin Globulin Albumin/Globulin Ratio HIV 1&2 Antibody Rapid Non-Reactive Blood Type Antibody Screen Crossmatch Blood Bank Wristband ID Impressions Impression: # Anemia blood loss Agree with blood transfusion Schedule upper endoscopy for tomorrow morning n.p.o. midnight tonight Assessment & Plan A&P Narrative # Hemoccult positive stool # Acute posthemorrhagic anemia Plan Agree with the blood transfusion Once patient adequately transfused we will consider doing initially fiberoptic esophagogastroduodenoscopy with possible therapeutic intervention possible biopsy If negative may need a colonoscopy but will be difficult to prep this patient for colonoscopy because of his underlying dementia Other medical problems include Diabetes mellitus with peripheral neuropathy Dementia Bipolar disorder Essential hypertension BPH Thank you very much for the opportunity to participate in the care of this patient Time Spent With Patient Time: Total time spent is greater than 50% in coordination of care (as documented) at patient's floor/unit and/or counseling patient:
[2024-06-01] MEDS: OCTREOTIDE ACET INJ 1,000 MCG in SODIUM CHLORIDE 0.9% 100 ML 5.1 MCG IV (20:07)
[2024-06-01] MEDS: cefTRIAXone/D5w 1gm IV premix 1 GM/50 ML BAG IV (20:26)
[2024-06-01] MEDS: traZODone HCL 50 MG TABLET PO (20:26)
[2024-06-01] MEDS: QUEtiapine FUMARATE 25 MG TABLET PO (20:26)
[2024-06-01] MEDS: OLANZapine INJ 5 MG, Sterile Water 2.1 ML IM (23:26)
[2024-06-02] VITALS (22 sets, daily range): BP systolic 115–197; BP diastolic 82–106; PULSE 67–92; RESP 10–21; TEMP 36.2–36.9; O2SAT 96–100; BMI 22.3
[2024-06-02] MEDS: LABETALOL INJ 5 MG/ML VIAL 20 ML 10 MG IVP ×3 (00:07→17:03)
[2024-06-02] MEDS: PANTOPRAZOLE/NS 80MG IV PREMIX 80 MG/100 ML BAG 10 MG IV ×2 (04:41→13:56)
[2024-06-02 06:08] LABS: Basophils # (Auto) 0.1 Thou/mm3 (0.0-0.2); Basophils % (Auto) 1 % (0-2.5); Eosinophils # (Auto) 0.9 Thou/mm3 (0.0-0.5); Eosinophils % (Auto) 11 % (0-10); Hematocrit 26.2 % (41.0-53.0); Immature Granulocytes % (Auto) 0 % (0-0); Immature Granulocytes Auto 0.02 Thou/mm3 (0.00-0.00); Lymphocytes # (Auto) 1.2 Thou/mm3 (1.0-4.8); Lymphocytes % (Auto) 16 % (10-50); Mean Corpuscular HGB Conc 31.7 g/dl (31.0-37.0); Mean Corpuscular Hemoglobin 20.4 pg (25.0-35.0); Mean Corpuscular Volume 64 fL (80-100); Monocytes # (Auto) 0.4 Thou/mm3 (0.0-0.8); Monocytes % (Auto) 5 % (0-12); Neutrophils # (Auto) 5.2 Thou/mm3 (1.8-7.7); Neutrophils % (Auto) 67 % (37-80); Nucleated Red Blood Cell % 0 /100 WBC (0); Platelet Count 154 Thou/mm3 (140-440); RDW Standard Deviation 53.8 fL (35.1-43.9); Red Blood Count 4.07 Miln/mm3 (4.50-5.90); White Blood Count 7.8 Thou/mm3 (3.8-10.6)
[2024-06-02 06:22] LABS: Hemoglobin 8.3 g/dL (13.5-16.0)
[2024-06-02 06:40] LABS: Anion Gap 9 (7-16); BUN/Creatinine Ratio 20 Ratio (12-20); Blood Urea Nitrogen 20 mg/dL (9-23); Calcium 8.2 mg/dL (8.3-10.6); Chloride 103 mMol/L (98-107); Estimated Creatinine Clearance 67.2 mL/min (>60); Glucose 295 mg/dL (74-106); Osmolality,Calculated 285 (275-295); Potassium 4.3 mMol/L (3.4-5.1); Sodium 136 mMol/L (136-145); eGFR > 60 See Note
[2024-06-02] MEDS: INSULIN LISPRO (AdmeLOG) 1 UNIT/0.01 ML UNIT SC ×2 (07:20→11:53)
[2024-06-02] MEDS: RINGERS LACTATED 1000 ML 1,000 ML 125 ML IV ×2 (07:30→16:59)
--- NOTE | 2024-06-02 10:57 | ESPR_ITS ---
<Statement entered by Lokesh Lawler MD - 06/03/24 10:34> I have discussed and was present for the essential components of the history, physical examination, diagnosis, and treatment plan with the resident. I agree with the patient's care as documented by the resident and amended herein by me. Lokesh Lawler MD FACP. Documentation for date of: 06/02/24 Subjective Subjective Interval history: Patient was seen and examined Patient was combative and given xyprexa Pending upper EGD No bleeding, hbg stable Exam Vital Signs Temp Pulse Resp BP Pulse Ox O2 Del Method 97.7 F 83 19 157/98 H 98 Room Air 06/02/24 08:00 06/02/24 08:00 06/02/24 08:00 06/02/24 08:00 06/02/24 08:00 06/02/24 08:00 Narrative Exam Physical Exam GENERAL: NAD, disheveled HEENT: Moist mucosa. Eyes open, symmetrical, & clear CARDIO: Heart RRR, no obvious murmurs PULM: No noted coughing/dyspnea CTA B/L, no R/W/R GI: Abdomen soft, nondistended, no pain on palpation. BSx4 SKIN/MSK/EXT: no pain on palpation. Pedal pulses present B/L NEURO: AAOx3, no focal neuro deficits, able to move all 4 extremities Objective Labs 06/02/24 05:29 06/02/24 05:29 Labs: Laboratory Results - last 24 hr 06/02/24 05:29 WBC 7.8 RBC 4.07 L Hgb 8.3 L Hct 26.2 L MCV 64 L MCH 20.4 L MCHC 31.7 RDW Std Deviation 53.8 H Plt Count 154 Neut % (Auto) 67 Lymph % (Auto) 16 [place] % (Auto) 5 Eos % (Auto) 11 H Baso % (Auto) 1 Neut # (Auto) 5.2 Lymph # (Auto) 1.2 [place] # (Auto) 0.4 Eos # (Auto) 0.9 H Baso # (Auto) 0.1 Immature Gran # (Auto) 0.02 H Absolute Nucleated RBC 0.00 Immature Gran % 0 Nucleated RBC % 0 Sodium 136 Potassium 4.3 D Chloride 103 Carbon Dioxide 24.0 Anion Gap 9 BUN 20 Creatinine 1.0 Estim Creat Clear Calc 67.2 eGFR > 60 BUN/Creatinine Ratio 20 Glucose 295 H Calculated Osmolality 285 Calcium 8.2 L Quality Measures Quality Measures VTE prophylaxis Assessment & Plan Assessment Current Active Medications: Generic Name Dose Route Start Last Admin Trade Name Augustus PRN Reason Stop Dose Admin Acetaminophen 650 mg 05/31/24 21:14 Acetaminophen 325 Mg Tablet PO 06/30/24 21:13 Q6H PRN Fever >101.5 Dextrose 25 ml 05/31/24 21:18 Dextrose 50%-Water Inj 50 Ml Syringe IV 06/30/24 21:17 Q15MIN PRN BG 50-70 responsive npo pt Dextrose 50 ml 05/31/24 21:18 Dextrose 50%-Water Inj 50 Ml Syringe IV 06/30/24 21:17 Q15MIN PRN BG <50 OR BG <70 & pt unresponsive Gabapentin 100 mg/ Gabapentin 400 mg 06/02/24 08:00 06/02/24 08:28 300 mg PO 07/02/24 07:59 Not Given TID LISA Glucagon 1 mg 05/31/24 21:18 Glucagon Inj 1 Mg Vial IM Q15MIN PRN BG <70, and no IV access Lactated Ringer's 1,000 mls @ 125 mls/hr 05/31/24 21:15 06/02/24 07:30 Lactated Ringers IV 06/30/24 21:14 125 mls/hr .Q8H LISA Administration Pantoprazole Sodium 80 mg in 100 mls @ 10 mls/hr 05/31/24 21:16 06/02/24 04:41 Protonix/Ns 80mg Iv Premix IV 06/03/24 19:15 10 mls/hr Q10H LISA Administration Ceftriaxone Sodium/Dextrose 1 gm in 50 mls @ 100 mls/hr 06/01/24 21:00 06/01/24 21:00 Rocephin/D5w 1gm Iv Premix IV 06/08/24 20:59 Infused QDAY@2100 LISA Infusion Octreotide Acetate 1,000 mcg/ 102 mls @ 5.1 mls/hr 06/01/24 20:00 06/01/24 20:07 Sodium Chloride IV 06/05/24 23:59 50 mcg/hr .Q20H LISA 5.1 mls/hr Administration Protocol 50 MCG/HR Insulin Glargine 10 unit 06/02/24 21:00 Insulin Glargine (Lantus) 5 Unit/0.05 Ml (Per 5 Units) SC 07/02/24 20:59 HS LISA Insulin Human Lispro 0 unit 06/01/24 07:30 06/02/24 07:20 Insulin Lispro (Admelog) 1 Unit/0.01 Ml Unit SC 07/01/24 07:29 3 unit AC LISA Administration Protocol Labetalol HCl 10 mg 06/01/24 05:05 06/02/24 04:41 Labetalol Inj 5 Mg/Ml Vial 20 Ml IVP 07/01/24 05:14 10 mg Q2H PRN Administration FOR SBP equal to or ABOVE 180 Olanzapine 10 mg 06/01/24 09:00 06/02/24 08:29 Olanzapine 5 Mg Tablet PO 07/01/24 08:59 Not Given QDAY LISA Quetiapine Fumarate 25 mg 06/01/24 21:00 06/01/24 20:26 Quetiapine Fumarate 25 Mg Tablet PO 07/01/24 20:59 25 mg HS LISA Administration Trazodone HCl 50 mg 06/01/24 21:00 06/01/24 20:26 Trazodone Hcl 50 Mg Tablet PO 07/01/24 20:59 50 mg HS LISA Administration Plan 64-year-old male patient known case of diabetes mellitus, hypertension, diabetic neuropathy, dementia, hep C, was brought from [facility] facility after he was found to have severe anemia. Patient was found to have hemoglobin level of 5.2. Patient was given 2 units of blood in the ED. Patient was admitted for severe anemia workup. #Severe microcytic anemia most likely secondary to GI bleed #Liver cirrhosis workup #History of hep C Patient presented with severe microcytic anemia most likely secondary to GI bleed. Patient chart showed he had history of hep C positive that was tested in 2019. Patient reported that he has history of heroin IV abuse, also he has history of alcohol use disorder in which he was drinking a whole pack per day for 27 years. Patient denied any hematochezia, hematemesis, or hemoptysis. Stool occult blood tested strongly positive for blood. LDH was normal, total bilirubin was also normal Abdomen pelvis CT showed: Thickening of the lower wall of the esophagus, consider reflux esophagitis. Pancreatic calcifications seen with prior episodes of pancreatitis. Perinephric stranding, consider urinary tract infection. Abundant stool throughout the colon no obstruction.Normal appendix, Rectal wall thickening, differential would include proctitis, or perirectal tumor not excluded, recommend direct inspection, Moderate prostatomegaly HIV negative ? Continue patient on Protonix drip ? continue octreotide drip 50 mcg/h ? GI consultation was sent, recommendations appreciated ? Sent for hepatitis panel ? Vitamin B12 and folate level test was sent follow-up on the results ? Ceftriaxone for suspected GI bleed secondary to liver cirrhosis. ? Follow-up on the haptoglobin level #History of diabetes mellitus Plan ? Will put the patient on insulin sliding scale ? Hypoglycemia protocol ? A1c level #History of hypertension ? on labetalol 10 mg IV as needed if SBP more than 180 ? on nifedipine 30 mg p.o. ? Do med reconciliation and resume home medications as appropriate #History of dementia ? Resume patient home medication trazodone 50 mg at bedtime ? Resume home medication olanzapine 10 mg p.o. daily Disposition: Tele Fluids: LR Feeding: NPO Thrombo prophylaxis: SCDs Gastric Ulcer prophylaxis: Pantoprazole CODE STATUS: Full code - Patient's care was discussed with my attending physician, Dr. Bucky Raines MD Internal Medicine PGY-3
--- NOTE | 2024-06-02 15:36 | SUR.PHASEI ---
received report and patient from STEPHEN Yeager, patient asleep at this time. tactile stimulation applied. vss, no distress noted at this time. IV intact, no s/s of infiltration noted.
--- NOTE | 2024-06-02 16:05 | SUR.PHASEI ---
report given STEPHEN Wiley. vss, pt awake, not responding to any verbal commands at this time. pt moving bilat arms, restraints in place pt ready for transfer
[2024-06-02] MEDS: GABAPENTIN 100 MG, GABAPENTIN 300 MG 400 MG PO (16:38)
[2024-06-02] MEDS: NA SU/NAHCO3/KC/PEG (Golytely) 4,000 ML BTL 4000 ML PO (16:49)
[2024-06-02] MEDS: cefTRIAXone/D5w 1gm IV premix 1 GM/50 ML BAG IV (20:27)
[2024-06-02] MEDS: PANTOPRAZOLE INJ 40 MG VIAL IV (20:27)
[2024-06-02] MEDS: INSULIN GLARGINE (Lantus) 5 UNIT/0.05 ML (PER 5 UNITS) 10 UNIT SC (20:27)
[2024-06-02 21:41] LABS: Folate 12.37 ng/mL (>5.38); Vitamin B12 580 pg/mL (211-911)
--- NOTE | 2024-06-02 22:14 | PC.NURSE ---
DR. HEARN NOTIFIED PT IS SLEEPY AND REFUSED TO DRINK MORE OF GOLYTELY NOW. STATED IT'S OK TO REST FOR NOW AND CONTINUE TAKING IT WHEN PT IS FULLY AWAKE TO PREVENT ASPIRATION.
[2024-06-02 22:23] LABS: Hepatitis A Antibody IgM Non Reactive (Non React); Hepatitis B Core Antibody IgM Non Reactive (Non React); Hepatitis B Surface Antigen Non Reactive (Non React); Hepatitis C Antibody Reactive (Non React)
[2024-06-03] VITALS (7 sets, daily range): BP systolic 137–184; BP diastolic 79–95; PULSE 58–91; RESP 12–15; TEMP 36.1–36.9; O2SAT 96–97
[2024-06-03] MEDS: RINGERS LACTATED 1000 ML 1,000 ML 125 ML IV ×3 (00:54→19:49)
[2024-06-03] MEDS: GABAPENTIN 100 MG, GABAPENTIN 300 MG 400 MG PO ×3 (05:49→21:42)
--- NOTE | 2024-06-03 05:52 | PC.NURSE ---
PT FULLY AWAKE, ALERT TO SELF. RESUME DRINKING OF GOLYTELY, PT TOLERATES WELL.
[2024-06-03 06:22] LABS: Basophils % (Auto) 1 % (0-2.5); Eosinophils # (Auto) 1.2 Thou/mm3 (0.0-0.5); Eosinophils % (Auto) 17 % (0-10); Hematocrit 27.1 % (41.0-53.0); Hemoglobin 8.4 g/dL (13.5-16.0); Immature Granulocytes % (Auto) 0 % (0-0); Immature Granulocytes Auto 0.02 Thou/mm3 (0.00-0.00); Lymphocytes # (Auto) 1.4 Thou/mm3 (1.0-4.8); Lymphocytes % (Auto) 21 % (10-50); Mean Corpuscular Volume 65 fL (80-100); Monocytes # (Auto) 0.5 Thou/mm3 (0.0-0.8); Monocytes % (Auto) 8 % (0-12); Neutrophils # (Auto) 3.7 Thou/mm3 (1.8-7.7); Neutrophils % (Auto) 54 % (37-80); Nucleated Red Blood Cell % 0 /100 WBC (0); Platelet Count 190 Thou/mm3 (140-440); RDW Standard Deviation 55.8 fL (35.1-43.9); White Blood Count 6.8 Thou/mm3 (3.8-10.6)
[2024-06-03 06:58] LABS: Anion Gap 8 (7-16); BUN/Creatinine Ratio 17 Ratio (12-20); Blood Urea Nitrogen 17 mg/dL (9-23); Calcium 8.2 mg/dL (8.3-10.6); Carbon Dioxide 26.1 mMol/L (20.0-31.0); Chloride 106 mMol/L (98-107); Glucose 194 mg/dL (74-106); Osmolality,Calculated 285 (275-295); Potassium 3.9 mMol/L (3.4-5.1); Sodium 140 mMol/L (136-145); eGFR > 60 See Note
[2024-06-03] MEDS: INSULIN LISPRO (AdmeLOG) 1 UNIT/0.01 ML UNIT SC ×2 (07:37→11:45)
[2024-06-03] MEDS: PANTOPRAZOLE INJ 40 MG VIAL IV ×2 (08:31→20:20)
--- NOTE | 2024-06-03 08:54 | PC.SS ---
Rounding: Pending colonoscopy
[2024-06-03 09:35] LABS: Glucose Estimated Average 166 mg/dL (80-131); Hemoglobin A1C 7.4 % Hgb (4.8-6.0)
[2024-06-03] MEDS: INSULIN LISPRO (AdmeLOG) 1 UNIT/0.01 ML UNIT 3 UNIT SC ×2 (11:45→20:19)
--- NOTE | 2024-06-03 11:59 | ESPR_ITS ---
<Statement entered by Mahi Alvardao MD - 06/03/24 18:05> Patient seen and examined at bedside. Patient appears to be altered at times but also refusing to respond to certain questions. Patient overall has no capacity to make decisions, and per GI service, will go ahead with colonoscopy. Patient will receive his remaining GoLytely via NG tube, and will provide restraints if needed. Zyprexa and Haldol as needed. I discussed with and supervised the business services intern physician who took care of this patient. I personally saw and examined the patient and discussed the assessment and plan with the entire medicine team, including my attending Dr. Isabel, I agree with most of the assessment and plan as documented below Mahi Alvarado M.D. PGY-2 Documentation for date of: 06/03/24 Subjective Subjective Interval history: Patient seen today at the bedside found altered. At this time patient was refusing colonoscopy however patient's mentation not at baseline. Physical restraints were placed and NG tube was placed as well for GoLytely prep for colonoscopy by GI service. Exam Vital Signs Temp Pulse Resp BP Pulse Ox O2 Del Method O2 Flow Rate 98.4 F 66 14 155/84 H 96 Room Air 2 06/03/24 08:00 06/03/24 08:00 06/03/24 08:00 06/03/24 08:00 06/03/24 08:00 06/03/24 08:00 06/02/24 15:50 Narrative Exam Physical Exam GENERAL: NAD, disheveled HEENT: Moist mucosa. Eyes open, symmetrical, & clear CARDIO: Heart RRR, no obvious murmurs PULM: No noted coughing/dyspnea CTA B/L, no R/W/R GI: Abdomen soft, nondistended, no pain on palpation. BSx4 SKIN/MSK/EXT: no pain on palpation. Pedal pulses present B/L NEURO:no focal neuro deficits, able to move all 4 extremities Objective Labs 06/03/24 06:01 06/03/24 06:01 Labs: Laboratory Results - last 24 hr 05/31/24 06/01/24 06/03/24 20:16 06:06 06:01 WBC 6.8 RBC 4.20 L Hgb 8.4 L Hct 27.1 L MCV 65 L MCH 20.0 L MCHC 31.0 RDW Std Deviation 55.8 H Plt Count 190 D Neut % (Auto) 54 Lymph % (Auto) 21 [place] % (Auto) 8 Eos % (Auto) 17 H Baso % (Auto) 1 Neut # (Auto) 3.7 Lymph # (Auto) 1.4 [place] # (Auto) 0.5 Eos # (Auto) 1.2 H Baso # (Auto) 0.0 Immature Gran # (Auto) 0.02 H Absolute Nucleated RBC 0.00 Immature Gran % 0 Nucleated RBC % 0 Sodium 140 Potassium 3.9 Chloride 106 Carbon Dioxide 26.1 Anion Gap 8 BUN 17 Creatinine 1.0 Estim Creat Clear Calc 67.0 eGFR > 60 BUN/Creatinine Ratio 17 Glucose [address] Glu mg/dL Hemoglobin A1c Calculated Osmolality 285 Calcium 8.2 L Vitamin B12 580 Folate 12.37 Hepatitis A IgM Ab Non Reactive Hep Bs Antigen Non Reactive Hep B Core IgM Ab Non Reactive Hepatitis C Antibody Reactive A 06/03/24 06:10 WBC RBC Hgb Hct MCV MCH MCHC RDW Std Deviation Plt Count Neut % (Auto) Lymph % (Auto) [place] % (Auto) Eos % (Auto) Baso % (Auto) Neut # (Auto) Lymph # (Auto) [place] # (Auto) Eos # (Auto) Baso # (Auto) Immature Gran # (Auto) Absolute Nucleated RBC Immature Gran % Nucleated RBC % Sodium Potassium Chloride Carbon Dioxide Anion Gap BUN Creatinine Estim Creat Clear Calc eGFR BUN/Creatinine Ratio Glucose Estimated Ave Glu mg/dL 166 H Hemoglobin A1c 7.4 H Calculated Osmolality Calcium Vitamin B12 Folate Hepatitis A IgM Ab Hep Bs Antigen Hep B Core IgM Ab Hepatitis C Antibody Quality Measures Quality Measures VTE prophylaxis Assessment & Plan Assessment Current Active Medications: Generic Name Dose Route Start Last Admin Trade Name Freq PRN Reason Stop Dose Admin Acetaminophen 650 mg 05/31/24 21:14 Acetaminophen 325 Mg Tablet PO 06/30/24 21:13 Q6H PRN Fever >101.5 Dextrose 25 ml 05/31/24 21:18 Dextrose 50%-Water Inj 50 Ml Syringe IV 06/30/24 21:17 Q15MIN PRN BG 50-70 responsive npo pt Dextrose 50 ml 05/31/24 21:18 Dextrose 50%-Water Inj 50 Ml Syringe IV 06/30/24 21:17 Q15MIN PRN BG <50 OR BG <70 & pt unresponsive Gabapentin 100 mg/ Gabapentin 400 mg 06/02/24 08:00 06/03/24 05:49 300 mg PO 07/02/24 07:59 400 mg TID LISA Administration Glucagon 1 mg 05/31/24 21:18 Glucagon Inj 1 Mg Vial IM Q15MIN PRN BG <70, and no IV access Lactated Ringer's 1,000 mls @ 125 mls/hr 05/31/24 21:15 06/03/24 10:59 Lactated Ringers IV 06/30/24 21:14 125 mls/hr .Q8H LISA Administration Ceftriaxone Sodium/Dextrose 1 gm in 50 mls @ 100 mls/hr 06/01/24 21:00 06/02/24 21:47 Rocephin/D5w 1gm Iv Premix IV 06/08/24 20:59 Infused QDAY@2100 LISA Infusion Insulin Glargine 10 unit 06/02/24 21:00 06/02/24 20:27 Insulin Glargine (Lantus) 5 Unit/0.05 Ml (Per 5 Units) SC 07/02/24 20:59 10 unit HS LISA Administration Insulin Human Lispro 0 unit 06/01/24 07:30 06/03/24 11:45 Insulin Lispro (Admelog) 1 Unit/0.01 Ml Unit SC 07/01/24 07:29 2 unit AC LISA Administration Protocol Insulin Human Lispro 3 unit 06/03/24 11:30 06/03/24 11:45 Insulin Lispro (Admelog) 1 Unit/0.01 Ml Unit SC 07/03/24 11:29 3 unit ACHS LISA Administration Labetalol HCl 10 mg 06/01/24 05:05 06/02/24 17:03 Labetalol Inj 5 Mg/Ml Vial 20 Ml IVP 07/01/24 05:14 10 mg Q2H PRN Administration FOR SBP equal to or ABOVE 180 Olanzapine 10 mg 06/01/24 09:00 06/03/24 11:37 Olanzapine 5 Mg Tablet PO 07/01/24 08:59 Not Given QDAY LISA Pantoprazole Sodium 40 mg 06/02/24 21:00 06/03/24 08:31 Pantoprazole Inj 40 Mg Vial IV 07/02/24 20:59 40 mg BID LISA Administration Quetiapine Fumarate 25 mg 06/01/24 21:00 06/02/24 21:47 Quetiapine Fumarate 25 Mg Tablet PO 07/01/24 20:59 Not Given HS LISA Trazodone HCl 50 mg 06/01/24 21:00 06/02/24 21:47 Trazodone Hcl 50 Mg Tablet PO 07/01/24 20:59 Not Given HS LISA Plan 64-year-old male patient known case of diabetes mellitus, hypertension, diabetic neuropathy, dementia, hep C, was brought from [facility] after he was found to have severe anemia. Patient was found to have hemoglobin level of 5.2. Patient was given 2 units of blood in the ED. Patient was admitted for severe anemia workup. #Severe microcytic anemia most likely secondary to GI bleed #Liver cirrhosis workup #History of hep C Patient presented with severe microcytic anemia most likely secondary to GI bleed. Patient chart showed he had history of hep C positive that was tested in 2019. Patient reported that he has history of heroin IV abuse, also he has history of alcohol use disorder in which he was drinking a whole pack per day for 27 years. Patient denied any hematochezia, hematemesis, or hemoptysis. Stool occult blood tested strongly positive for blood. LDH was normal, total bilirubin was also normal Abdomen pelvis CT showed: Thickening of the lower wall of the esophagus, consider reflux esophagitis. Pancreatic calcifications seen with prior episodes of pancreatitis. Perinephric stranding, consider urinary tract infection. Abundant stool throughout the colon no obstruction.Normal appendix, Rectal wall thickening, differential would include proctitis, or perirectal tumor not excluded, recommend direct inspection, Moderate prostatomegaly HIV negative ? Continue patient on Protonix drip ? GI consultation was sent, recommendations appreciated ? Vitamin B12 and folate level test was sent follow-up on the results ? Follow-up on the haptoglobin level #History of diabetes mellitus A1c 7.4 ? Will put the patient on insulin sliding scale ? Hypoglycemia protocol #History of hypertension ? on labetalol 10 mg IV as needed if SBP more than 180 ? on nifedipine 30 mg p.o. ? Do med reconciliation and resume home medications as appropriate #History of dementia ? Resume patient home medication trazodone 50 mg at bedtime ? Resume home medication olanzapine 10 mg p.o. daily Case discussed with my senior Dr. Alvarado PGY-[address] Maame Casillas MD PGY-1 Disposition: Tele Fluids: none Feeding: CLD Thrombo prophylaxis: SCDs Gastric Ulcer prophylaxis: Pantoprazole CODE STATUS: Full code Attending Provider Attestation/Addendum I have discussed and was present for the essential components of the history, physical examination, diagnosis, and treatment plan with the resident. I agree with the patient's care as documented by the resident and amended herein by me. Jian Isabel DO. Patient seen and evaluated this AM. No acute events overnight, vital signs stable, patient afebrile, hemoglobin stable at 8.4. Patient was very verbally abusive in the a.m., initially telling the whole team to F-off however patient did not seem to have capacity to make decisions, he did not know why he was in the hospital he did not seem to understand the ramifications of not going through with colonoscopy. At this time the patient may need to be restrained, NG tube will be placed for GoLytely per gastroenterology recommendations. Colonoscopy may be tonight or tomorrow night, will continue to monitor patient closely while he is here. Although this document has been carefully reviewed, there may still be some phonetic and other typographical errors. These errors are purely grammatical due to imperfections in the software program and should not be construed in any way to compromise the substance of the patient's medical care during this visit.
--- NOTE | 2024-06-03 16:24 | XR_ITS ---
Examination: AP chest single view Technique one AP portable upright chest single view Exam date and time: 2024 at 1636 hours Comparison May 03, 2024 INDICATIONS: Post orogastric tube placement FINDINGS: Orogastric tube in stomach satisfactory position No significant cardiac enlargement Mild vascular congestion. IMPRESSION: Orogastric tube in the stomach satisfactory position
[2024-06-03] MEDS: INSULIN GLARGINE (Lantus) 5 UNIT/0.05 ML (PER 5 UNITS) 10 UNIT SC (20:18)
[2024-06-03] MEDS: traZODone HCL 50 MG TABLET PO (20:21)
[2024-06-03] MEDS: QUEtiapine FUMARATE 25 MG TABLET PO (20:21)
--- NOTE | 2024-06-03 21:11 | PD.IMPROG ---
Documentation for date of: 06/03/24 Subjective Subjective Interval history: Patient evaluated He was scheduled for a colonoscopy today but he did not in the GoLytely NGT has been placed in He is getting GoLytely via the NGT Adequate conversation with the attending RN we will continue GoLytely at 400 cc an hour till he is clear Colonoscopy postponed to tomorrow Exam Vital Signs Temp Pulse Resp BP Pulse Ox O2 Del Method O2 Flow Rate 97.6 F 80 15 165/95 H 96 Nasal Cannula 2 06/03/24 20:00 06/03/24 20:00 06/03/24 20:00 06/03/24 20:00 06/03/24 20:00 06/03/24 20:00 06/02/24 15:50 Objective Labs 06/03/24 06:01 06/03/24 06:01 Labs: Laboratory Results - last 24 hr 05/31/24 06/01/24 06/03/24 20:16 06:06 06:01 WBC 6.8 RBC 4.20 L Hgb 8.4 L Hct 27.1 L MCV 65 L MCH 20.0 L MCHC 31.0 RDW Std Deviation 55.8 H Plt Count 190 D Neut % (Auto) 54 Lymph % (Auto) 21 [place] % (Auto) 8 Eos % (Auto) 17 H Baso % (Auto) 1 Neut # (Auto) 3.7 Lymph # (Auto) 1.4 [place] # (Auto) 0.5 Eos # (Auto) 1.2 H Baso # (Auto) 0.0 Immature Gran # (Auto) 0.02 H Absolute Nucleated RBC 0.00 Immature Gran % 0 Nucleated RBC % 0 Sodium 140 Potassium 3.9 Chloride 106 Carbon Dioxide 26.1 Anion Gap 8 BUN 17 Creatinine 1.0 Estim Creat Clear Calc 67.0 eGFR > 60 BUN/Creatinine Ratio 17 Glucose [address] Glu mg/dL Hemoglobin A1c Calculated Osmolality 285 Calcium 8.2 L Vitamin B12 580 Folate 12.37 Hepatitis A IgM Ab Non Reactive Hep Bs Antigen Non Reactive Hep B Core IgM Ab Non Reactive Hepatitis C Antibody Reactive A 06/03/24 06:10 WBC RBC Hgb Hct MCV MCH MCHC RDW Std Deviation Plt Count Neut % (Auto) Lymph % (Auto) [place] % (Auto) Eos % (Auto) Baso % (Auto) Neut # (Auto) Lymph # (Auto) [place] # (Auto) Eos # (Auto) Baso # (Auto) Immature Gran # (Auto) Absolute Nucleated RBC Immature Gran % Nucleated RBC % Sodium Potassium Chloride Carbon Dioxide Anion Gap BUN Creatinine Estim Creat Clear Calc eGFR BUN/Creatinine Ratio Glucose Estimated Ave Glu mg/dL 166 H Hemoglobin A1c 7.4 H Calculated Osmolality Calcium Vitamin B12 Folate Hepatitis A IgM Ab Hep Bs Antigen Hep B Core IgM Ab Hepatitis C Antibody Impressions Impression: Anemia blood loss Schedule colonoscopy for tomorrow [facility] prep to continue Assessment & Plan A&P Narrative # Hemoccult positive stool # Acute posthemorrhagic anemia Plan Agree with the blood transfusion Once patient adequately transfused we will consider doing initially fiberoptic esophagogastroduodenoscopy with possible therapeutic intervention possible biopsy If negative may need a colonoscopy but will be difficult to prep this patient for colonoscopy because of his underlying dementia Other medical problems include Diabetes mellitus with peripheral neuropathy Dementia Bipolar disorder Essential hypertension BPH Thank you very much for the opportunity to participate in the care of this patient Time Spent With Patient Time: Total time spent is greater than 50% in coordination of care (as documented) at patient's floor/unit and/or counseling patient:
[2024-06-04] VITALS (10 sets, daily range): BP systolic 147–185; BP diastolic 75–105; PULSE 64–81; RESP 10–18; TEMP 36.1–36.5; O2SAT 93–96; BMI 22.2; BMI 22.1
[2024-06-04] MEDS: RINGERS LACTATED 1000 ML 1,000 ML 125 ML IV (04:06)
[2024-06-04] MEDS: GABAPENTIN 100 MG, GABAPENTIN 300 MG 400 MG PO ×3 (05:43→21:03)
[2024-06-04 06:40] LABS: Immature Granulocytes % (Auto) 0 % (0-0); Mean Corpuscular Volume 64 fL (80-100); Nucleated Red Blood Cell % 0 /100 WBC (0)
[2024-06-04 07:14] LABS: Albumin, Serum 2.6 gm/dL (3.4-4.8); Albumin/Globulin Ratio 0.9 (1.2-2.2); Alkaline Phosphatase 59 U/L (46-116); Anion Gap 7 (7-16); Aspartate Amino Transferase 18 U/L (0-34); BUN/Creatinine Ratio 10 Ratio (12-20); Bilirubin,Total 0.3 mg/dL (0.3-1.2); Blood Urea Nitrogen 9 mg/dL (9-23); Calcium 7.9 mg/dL (8.3-10.6); Carbon Dioxide 25.2 mMol/L (20.0-31.0); Chloride 109 mMol/L (98-107); Creatinine (Component) 0.9 mg/dL (0.6-1.3); Estimated Creatinine Clearance 74.4 mL/min (>60); Globulin 2.9 gm/dL (2.3-3.5); Glucose 78 mg/dL (74-106); Magnesium 1.4 mg/dL (1.6-2.6); Osmolality,Calculated 278 (275-295); Phosphorous 3.4 mg/dL (2.4-5.1); Sodium 141 mMol/L (136-145); Total Protein 5.5 gm/dL (5.7-8.2); eGFR > 60 See Note
[2024-06-04 07:20] LABS: Alanine Aminotransferase 9 U/L (10-49)
[2024-06-04] MEDS: PANTOPRAZOLE INJ 40 MG VIAL IV ×2 (08:18→21:05)
[2024-06-04] MEDS: OLANZapine 5 MG TABLET 10 MG PO (08:18)
[2024-06-04] MEDS: Magnesium Sulfate 2 GM Ivpb 2 GM/50 ML BAG IV (09:30)
[2024-06-04 09:32] LABS: Basophils % (Auto) 1 % (0-2.5); Eosinophils # (Auto) 0.8 Thou/mm3 (0.0-0.5); Eosinophils % (Auto) 15 % (0-10); Hematocrit 25.1 % (41.0-53.0); Hemoglobin 7.8 g/dL (13.5-16.0); Immature Granulocytes Auto 0.02 Thou/mm3 (0.00-0.00); Lymphocytes # (Auto) 1.1 Thou/mm3 (1.0-4.8); Lymphocytes % (Auto) 21 % (10-50); Mean Corpuscular HGB Conc 31.1 g/dl (31.0-37.0); Mean Corpuscular Hemoglobin 19.9 pg (25.0-35.0); Monocytes # (Auto) 0.3 Thou/mm3 (0.0-0.8); Monocytes % (Auto) 6 % (0-12); Neutrophils # (Auto) 3.1 Thou/mm3 (1.8-7.7); Neutrophils % (Auto) 57 % (37-80); RDW Standard Deviation 56.4 fL (35.1-43.9); Red Blood Count 3.91 Miln/mm3 (4.50-5.90); White Blood Count 5.4 Thou/mm3 (3.8-10.6)
[2024-06-04 09:33] LABS: Platelet Count 106 Thou/mm3 (140-440)
[2024-06-04] MEDS: NA SU/NAHCO3/KC/PEG (Golytely) 4,000 ML BTL 4000 ML PO (09:46)
--- NOTE | 2024-06-04 10:03 | XR_ITS ---
Examination: Abdomen AP single view Technique: AP portable supine abdomen, single view Exam date and time: June 04, 2024 10:13 AM INDICATIONS: Abdominal distention today. FINDINGS: Moderate air and stool throughout the colon No obstruction No free air Prominent osteopenia IMPRESSION: Moderate air and stool throughout the colon.
--- NOTE | 2024-06-04 10:55 | PC.SS ---
Follow up note: Patient still pending colonoscopy
[2024-06-04] MEDS: LABETALOL INJ 5 MG/ML VIAL 20 ML 10 MG IVP ×2 (11:30→16:28)
[2024-06-04] MEDS: INSULIN LISPRO (AdmeLOG) 1 UNIT/0.01 ML UNIT SC (12:35)
[2024-06-04] MEDS: INSULIN LISPRO (AdmeLOG) 1 UNIT/0.01 ML UNIT 3 UNIT SC ×2 (12:35→21:03)
--- NOTE | 2024-06-04 13:01 | ESPR_ITS ---
<Statement entered by Rossana Segura MD - 06/04/24 14:29> Patient seen and examined. No acute overnight events. Patient has an NG tube placed, receiving GoLytely, labs are stable, hemoglobin is 7.8, pending colonoscopy. I personally saw and examined the patient and discussed the assessment and plan with the entire medicine team, including my attending , Rossana Segura M.D. PGY-2 Disclaimer: Despite multiple revisions, due to the dictation software being used, the document bellow may not be free of grammatical errors including phonetic/typographic errors. However, this does not deter from our commitment to providing health care in the patient's best interest in mind. Documentation for date of: 06/04/24 Subjective Subjective Interval history: Patient is a 64-year-old male with a past medical history of diabetes mellitus type 2 insulin-dependent, hypertension, dementia, and chronic history of hepatitis C who is coming from [place] with an initial hgb of 5.3 requiring 2 units of RBC. No overnight events reported by patient. Patient denied chest pain or shortness of breath. Patient is receiving GoLytely on his second jug via NG tube for colonoscopy prep with Dr. Silverman. KUB ordered as patient appeared distended and hyperresonant on physical exam. KUB showed moderate air and stool throughout the colon. Patient hypertensive, started on Losartan 25 mg Qday. Exam Vital Signs Temp Pulse Resp BP Pulse Ox O2 Del Method O2 Flow Rate 97.1 F 69 18 181/105 H 94 L Room Air 2 06/04/24 08:00 06/04/24 11:30 06/04/24 08:00 06/04/24 11:30 06/04/24 08:00 06/04/24 08:00 06/02/24 15:50 Narrative Exam General Appearance: Alert & Oriented X2, well-nourished male who is lying in bed in no acute distress HEENT: Skull symmetrical and atraumatic. Conjunctivae pin and moist. Pupils equal, round, reactive to light and accommodation (PERRL). External ear without lesion or discharge. Straight, nares patient, mucosa pink, no discharge. No thyroid nodule appreciated. No cervical lymphadenopathy. Cardio: Normal Rate and Rhythm with S1 and S2 heart sounds. No murmurs or extra heart sounds auscultated. No bruits on carotid auscultation. No peripheral edema or cyanosis. Lungs: Symmetric with good expansion. Chest and back non-tender. Breath sounds vesicular without crackles, wheezing or rhonchi Abdomen: Non-tender, mild distended, and hyperresonant. Neuro: Alert, cooperative, Yes oriented to person, Yes place, and No time. Speech clear. CN grossly intact. Upper motor strength 5/5 and Lower motor strength 5/5. Sensation intact. Objective Labs 06/04/24 09:11 06/04/24 05:00 Labs: Laboratory Results - last 24 hr 06/04/24 06/04/24 05:00 09:11 WBC 5.4 RBC 3.91 L Hgb 7.8 L Hct 25.1 L MCV 64 L MCH 19.9 L MCHC 31.1 RDW Std Deviation 56.4 H Plt Count 106 L D Neut % (Auto) 57 Lymph % (Auto) 21 [place] % (Auto) 6 Eos % (Auto) 15 H Baso % (Auto) 1 Neut # (Auto) 3.1 Lymph # (Auto) 1.1 [place] # (Auto) 0.3 Eos # (Auto) 0.8 H Baso # (Auto) 0.0 Immature Gran # (Auto) 0.02 H Absolute Nucleated RBC 0.00 Immature Gran % 0 Nucleated RBC % 0 Sodium 141 Potassium 4.0 Chloride 109 H Carbon Dioxide 25.2 Anion Gap 7 BUN 9 Creatinine 0.9 Estim Creat Clear Calc 74.4 eGFR > 60 BUN/Creatinine Ratio 10 L Glucose 78 D Calculated Osmolality 278 Calcium 7.9 L Corrected Calcium 9.0 Phosphorus 3.4 Magnesium 1.4 L Total Bilirubin 0.3 AST 18 ALT 9 L Alkaline Phosphatase 59 Total Protein 5.5 L Albumin 2.6 L Globulin 2.9 Albumin/Globulin Ratio 0.9 L Quality Measures Quality Measures VTE prophylaxis Assessment & Plan Assessment Current Active Medications: Generic Name Dose Route Start Last Admin Trade Name Freq PRN Reason Stop Dose Admin Dextrose 25 ml 05/31/24 21:18 Dextrose 50%-Water Inj 50 Ml Syringe IV 06/30/24 21:17 Q15MIN PRN BG 50-70 responsive npo pt Dextrose 50 ml 05/31/24 21:18 Dextrose 50%-Water Inj 50 Ml Syringe IV 06/30/24 21:17 Q15MIN PRN BG <50 OR BG <70 & pt unresponsive Gabapentin 100 mg/ Gabapentin 400 mg 06/02/24 08:00 06/04/24 05:43 300 mg PO 07/02/24 07:59 400 mg TID LISA Administration Glucagon 1 mg 05/31/24 21:18 Glucagon Inj 1 Mg Vial IM Q15MIN PRN BG <70, and no IV access Insulin Glargine 10 unit 06/02/24 21:00 06/03/24 20:18 Insulin Glargine (Lantus) 5 Unit/0.05 Ml (Per 5 Units) SC 07/02/24 20:59 10 unit HS LISA Administration Insulin Human Lispro 0 unit 06/01/24 07:30 06/04/24 12:35 Insulin Lispro (Admelog) 1 Unit/0.01 Ml Unit SC 07/01/24 07:29 2 unit AC LISA Administration Protocol Insulin Human Lispro 3 unit 06/03/24 11:30 06/04/24 12:35 Insulin Lispro (Admelog) 1 Unit/0.01 Ml Unit SC 07/03/24 11:29 3 unit ACHS LISA Administration Labetalol HCl 10 mg 06/01/24 05:05 06/04/24 11:30 Labetalol Inj 5 Mg/Ml Vial 20 Ml IVP 07/01/24 05:14 10 mg Q2H PRN Administration FOR SBP equal to or ABOVE 180 Losartan Potassium 25 mg 06/04/24 13:00 Losartan Potassium 25 Mg Tablet PO 07/04/24 12:59 QDAY LISA Olanzapine 10 mg 06/01/24 09:00 06/04/24 08:18 Olanzapine 5 Mg Tablet PO 07/01/24 08:59 10 mg QDAY LISA Administration Pantoprazole Sodium 40 mg 06/02/24 21:00 06/04/24 08:18 Pantoprazole Inj 40 Mg Vial IV 07/02/24 20:59 40 mg BID LISA Administration Quetiapine Fumarate 25 mg 06/01/24 21:00 06/03/24 20:21 Quetiapine Fumarate 25 Mg Tablet PO 07/01/24 20:59 25 mg HS LISA Administration Trazodone HCl 50 mg 06/01/24 21:00 06/03/24 20:21 Trazodone Hcl 50 Mg Tablet PO 07/01/24 20:59 50 mg HS LISA Administration Plan 64-year-old male patient known case of diabetes mellitus, hypertension, diabetic neuropathy, dementia, hep C, [facility] after he was found to have severe anemia. Patient was found to have hemoglobin level of 5.2. Patient was given 2 units of blood in the ED. Patient was admitted for severe anemia workup. #Severe microcytic anemia most likely secondary to GI bleed #Liver cirrhosis workup #History of hep C Patient presented with severe microcytic anemia most likely secondary to GI bleed. Patient chart showed he had history of hep C positive that was tested in 2019. Patient reported that he has history of heroin IV abuse, also he has history of alcohol use disorder in which he was drinking a whole pack per day for 27 years. Patient denied any hematochezia, hematemesis, or hemoptysis. [place]-denied blood in stool and history of colon rectal cancer. Stool occult blood tested strongly positive for blood. Imaging: Abdomen pelvis CT showed: Thickening of the lower wall of the esophagus, consider reflux esophagitis. Pancreatic calcifications seen with prior episodes of pancreatitis. Perinephric stranding, consider urinary tract infection. Abundant stool throughout the colon no obstruction.Normal appendix, Rectal wall thickening, differential would include proctitis, or perirectal tumor not excluded, recommend direct inspection, Moderate prostatomegaly KUB-distention and air fluid levels Plan: -colonoscopy on golytle via NG tube -Continue Golytle-on second jub -Consider Iron tablets after colonoscopy ? Follow-up on the haptoglobin level ? GI consultation, Dr. Silverman, recommendations appreciated ? D/C'ed Protonix #History of diabetes mellitus A1c 7.4 -Glargine 20 units HS & Lispro 3 units ? On insulin sliding scale ? Hypoglycemia protocol #History of hypertension ? on labetalol 10 mg IV as needed if SBP more than 180 ? started Losartan 25 mg p.o. ? Do med reconciliation and resume home medications as appropriate #History of dementia ? Resume patient home medication trazodone 50 mg at bedtime ? Resume home medication olanzapine 10 mg p.o. daily -Consider Haloperidol if need be #BPH -Continue Tamsulosin Disposition: Tele Fluids: none Feeding: CLD Thrombo prophylaxis: SCDs Gastric Ulcer prophylaxis: Pantoprazole CODE STATUS: DNR per [facility] - The patient's plan was discussed with attending Dr. Isabel and senior residents Dr. Colton Shine MD PGY1 Internal Medicine Attending Provider Attestation/Addendum I have discussed and was present for the essential components of the history, physical examination, diagnosis, and treatment plan with the resident. I agree with the patient's care as documented by the resident and amended herein by me. Jian Isabel DO. Patient seen and evaluated this AM. No acute events overnight, vital signs stable, patient afebrile, patient was however very somnolent this morning. Significant labs include a slight downtrend in hemoglobin to 7.8 today, BMP largely unremarkable. KUB performed yesterday demonstrated moderate air and stool throughout the colon, the patient's abdomen is still soft and nondistended. The patient's magnesium was low which will be repleted, colonoscopy we will proceed this evening if the patient is clear. OG tube in place, patient receiving GoLytely. Will continue to monitor closely, gastroenterology recommendations appreciated. Although this document has been carefully reviewed, there may still be some phonetic and other typographical errors. These errors are purely grammatical due to imperfections in the software program and should not be construed in any way to compromise the substance of the patient's medical care during this visit.
[2024-06-04] MEDS: LOSARTAN POTASSIUM 25 MG TABLET PO (13:41)
--- NOTE | 2024-06-04 19:06 | PD.IMPROG ---
Documentation for date of: 06/04/24 Subjective Subjective Interval history: Patient evaluated He is not clear for colonoscopy today. The patient to be given additional GoLytely till he is clear Downward trending hemoglobin at 7.8 and 25.1 Exam Vital Signs Temp Pulse Resp BP Pulse Ox O2 Del Method O2 Flow Rate 97.3 F 78 16 185/98 H 94 L Room Air 2 06/04/24 16:00 06/04/24 16:28 06/04/24 16:00 06/04/24 16:28 06/04/24 16:00 06/04/24 16:00 06/04/24 12:00 Objective Labs 06/04/24 09:11 06/04/24 05:00 Labs: Laboratory Results - last 24 hr 06/04/24 06/04/24 05:00 09:11 WBC 5.4 RBC 3.91 L Hgb 7.8 L Hct 25.1 L MCV 64 L MCH 19.9 L MCHC 31.1 RDW Std Deviation 56.4 H Plt Count 106 L D Neut % (Auto) 57 Lymph % (Auto) 21 [place] % (Auto) 6 Eos % (Auto) 15 H Baso % (Auto) 1 Neut # (Auto) 3.1 Lymph # (Auto) 1.1 [place] # (Auto) 0.3 Eos # (Auto) 0.8 H Baso # (Auto) 0.0 Immature Gran # (Auto) 0.02 H Absolute Nucleated RBC 0.00 Immature Gran % 0 Nucleated RBC % 0 Sodium 141 Potassium 4.0 Chloride 109 H Carbon Dioxide 25.2 Anion Gap 7 BUN 9 Creatinine 0.9 Estim Creat Clear Calc 74.4 eGFR > 60 BUN/Creatinine Ratio 10 L Glucose 78 D Calculated Osmolality 278 Calcium 7.9 L Corrected Calcium 9.0 Phosphorus 3.4 Magnesium 1.4 L Total Bilirubin 0.3 AST 18 ALT 9 L Alkaline Phosphatase 59 Total Protein 5.5 L Albumin 2.6 L Globulin 2.9 Albumin/Globulin Ratio 0.9 L Impressions Impression: # Posthemorrhagic anemia continue GoLytely prep will schedule colonoscopy once he is cleared Assessment & Plan A&P Narrative # Hemoccult positive stool # Acute posthemorrhagic anemia Plan Agree with the blood transfusion Once patient adequately transfused we will consider doing initially fiberoptic esophagogastroduodenoscopy with possible therapeutic intervention possible biopsy If negative may need a colonoscopy but will be difficult to prep this patient for colonoscopy because of his underlying dementia Other medical problems include Diabetes mellitus with peripheral neuropathy Dementia Bipolar disorder Essential hypertension BPH Thank you very much for the opportunity to participate in the care of this patient Time Spent With Patient Time: Total time spent is greater than 50% in coordination of care (as documented) at patient's floor/unit and/or counseling patient:
[2024-06-04] MEDS: INSULIN GLARGINE (Lantus) 5 UNIT/0.05 ML (PER 5 UNITS) 10 UNIT SC (21:02)
[2024-06-04] MEDS: QUEtiapine FUMARATE 25 MG TABLET PO (21:03)
[2024-06-04] MEDS: traZODone HCL 50 MG TABLET PO (21:03)
[2024-06-05] VITALS (17 sets, daily range): BP systolic 124–180; BP diastolic 70–96; PULSE 65–121; RESP 11–19; TEMP 36.1–36.7; O2SAT 92–99
--- NOTE | 2024-06-05 03:50 | PC.NURSE ---
[facility] on [facility]24 from 0200 to 0350.
[2024-06-05] MEDS: NA SU/NAHCO3/KC/PEG (Golytely) 4,000 ML BTL 4000 ML PO (05:25)
[2024-06-05 07:59] LABS: Alanine Aminotransferase 9 U/L (10-49); Albumin, Serum 2.7 gm/dL (3.4-4.8); Alkaline Phosphatase 59 U/L (46-116); Anion Gap 11 (7-16); Aspartate Amino Transferase 23 U/L (0-34); BUN/Creatinine Ratio 7 Ratio (12-20); Bilirubin,Total 0.2 mg/dL (0.3-1.2); Blood Urea Nitrogen 6 mg/dL (9-23); Calcium 7.7 mg/dL (8.3-10.6); Calcium (Corrected) 8.7 mg/dL (8.5-10.1); Carbon Dioxide 26.3 mMol/L (20.0-31.0); Chloride 108 mMol/L (98-107); Creatinine (Component) 0.9 mg/dL (0.6-1.3); Estimated Creatinine Clearance 74.4 mL/min (>60); Globulin 2.7 gm/dL (2.3-3.5); Glucose 65 mg/dL (74-106); Magnesium 1.6 mg/dL (1.6-2.6); Osmolality,Calculated 284 (275-295); Potassium 3.8 mMol/L (3.4-5.1); Sodium 145 mMol/L (136-145); Total Protein 5.4 gm/dL (5.7-8.2); eGFR > 60 See Note
--- NOTE | 2024-06-05 08:10 | PC.NURSE ---
Md Fenton notified this am of pt pulling out own NG tube. Per MD will come see pt & cont to give PO golytely for now.
[2024-06-05] MEDS: OLANZapine 5 MG TABLET 10 MG PO (08:23)
[2024-06-05] MEDS: PANTOPRAZOLE INJ 40 MG VIAL IV ×2 (08:23→21:04)
[2024-06-05] MEDS: LOSARTAN POTASSIUM 25 MG TABLET PO (08:23)
--- NOTE | 2024-06-05 10:55 | PC.SS ---
Addendum entered by Janessa Aguirre 06/05/24 11:55: SS spoke to on phone regarding patient history to clarify history of patient. Patient is not from home. Patient is residing at [facility] and has been residing at facility for the last 2 years. SS will update facility to ensure they are taking patient back. Original Note: Follow up note: Patient was not able to complete his golytely. Patient still pending colonoscopy.
[2024-06-05 11:26] LABS: Basophils % (Auto) 0 % (0-2.5); Eosinophils # (Auto) 0.1 Thou/mm3 (0.0-0.5); Eosinophils % (Auto) 3 % (0-10); Hematocrit 25.4 % (41.0-53.0); Immature Granulocytes % (Auto) 0 % (0-0); Lymphocytes % (Auto) 21 % (10-50); Mean Corpuscular HGB Conc 31.5 g/dl (31.0-37.0); Mean Corpuscular Hemoglobin 20.1 pg (25.0-35.0); Mean Corpuscular Volume 64 fL (80-100); Monocytes # (Auto) 0.2 Thou/mm3 (0.0-0.8); Monocytes % (Auto) 4 % (0-12); Neutrophils # (Auto) 3.2 Thou/mm3 (1.8-7.7); Neutrophils % (Auto) 71 % (37-80); Nucleated Red Blood Cell % 0 /100 WBC (0); RDW Standard Deviation 56.5 fL (35.1-43.9); Red Blood Count 3.99 Miln/mm3 (4.50-5.90); White Blood Count 4.5 Thou/mm3 (3.8-10.6)
[2024-06-05] MEDS: INSULIN LISPRO (AdmeLOG) 1 UNIT/0.01 ML UNIT SC (12:17)
[2024-06-05] MEDS: INSULIN LISPRO (AdmeLOG) 1 UNIT/0.01 ML UNIT 3 UNIT SC (12:18)
[2024-06-05 12:22] LABS: Platelet Count 7 Thou/mm3 (140-440)
[2024-06-05 12:48] LABS: Slide Review Platelets confirmed
[2024-06-05] MEDS: hydrALAZINE INJ 20 MG/ML VIAL 10 MG IV (14:01)
[2024-06-05] MEDS: GABAPENTIN 100 MG, GABAPENTIN 300 MG 400 MG PO ×2 (14:41→21:04)
[2024-06-05 14:45] LABS: Basophils % (Auto) 1 % (0-2.5); Eosinophils # (Auto) 0.4 Thou/mm3 (0.0-0.5); Eosinophils % (Auto) 6 % (0-10); Hematocrit 29.2 % (41.0-53.0); Hemoglobin 9.2 g/dL (13.5-16.0); Immature Granulocytes % (Auto) 1 % (0-0); Immature Granulocytes Auto 0.03 Thou/mm3 (0.00-0.00); Lymphocytes # (Auto) 0.8 Thou/mm3 (1.0-4.8); Lymphocytes % (Auto) 14 % (10-50); Mean Corpuscular HGB Conc 31.5 g/dl (31.0-37.0); Mean Corpuscular Hemoglobin 20.1 pg (25.0-35.0); Mean Corpuscular Volume 64 fL (80-100); Monocytes # (Auto) 0.3 Thou/mm3 (0.0-0.8); Monocytes % (Auto) 4 % (0-12); Neutrophils # (Auto) 4.3 Thou/mm3 (1.8-7.7); Neutrophils % (Auto) 75 % (37-80); Nucleated Red Blood Cell % 0 /100 WBC (0); Platelet Count 201 Thou/mm3 (140-440); RDW Standard Deviation 56.6 fL (35.1-43.9); Red Blood Count 4.58 Miln/mm3 (4.50-5.90); White Blood Count 5.8 Thou/mm3 (3.8-10.6)
[2024-06-05] MEDS: DEXTROSE 50%-WATER INJ 50 ML SYRINGE 25 ML IV ×2 (16:48→21:30)
--- NOTE | 2024-06-05 17:56 | ESPR_ITS ---
<Statement entered by Rossana Segura MD - 06/06/24 09:04> No acute overnight event, labs and vitals were reviewed. CMP unremarkable. Blood pressure a little bit on the high side, will continue with losartan 25 daily, patient has as needed BP medication. Will continue with losartan 25 daily, plans to restart home tamsulosin as well. Patient completed GoLytely prep. Pending colonoscopy by Dr. Silverman. I personally saw and examined the patient and discussed the assessment and plan with the entire medicine team, including my attending Dr. Isabel, Rossana Segura M.D. PGY-2 Disclaimer: Despite multiple revisions, due to the dictation software being used, the document bellow may not be free of grammatical errors including phonetic/typographic errors. However, this does not deter from our commitment to providing health care in the patient's best interest in mind. Documentation for date of: 06/05/24 Subjective Subjective Interval history: No overnight events. This morning patient removed NG tube. Patient stated he would be able to drink Golyte on his own and complete second jub. Patient was cleared this afternnon. Patinet denied abdominal pain. Continues to have bowel movements. Patient deneid blood in his stool and none was noted through out the day. Pending Colonoscopy tonight. Exam Vital Signs Temp Pulse Resp BP Pulse Ox O2 Del Method O2 Flow Rate 98.0 F 99 17 157/87 H 96 Room Air 2 06/05/24 16:00 06/05/24 16:00 06/05/24 16:00 06/05/24 16:00 06/05/24 16:00 06/05/24 16:06/04/24 12:00 Narrative Exam General Appearance: Alert & Oriented X2, well-nourished male who is lying in bed in no acute distress HEENT: Skull symmetrical and atraumatic. Conjunctivae pin and moist. Pupils equal, round, reactive to light and accommodation (PERRL). External ear without lesion or discharge. Straight, nares patient, mucosa pink, no discharge. No thyroid nodule appreciated. No cervical lymphadenopathy. Cardio: Normal Rate and Rhythm with S1 and S2 heart sounds. No murmurs or extra heart sounds auscultated. No bruits on carotid auscultation. No peripheral edema or cyanosis. Lungs: Symmetric with good expansion. Chest and back non-tender. Breath sounds vesicular without crackles, wheezing or rhonchi Abdomen: Non-tender, mild distended, and hyperresonant. Neuro: Alert, cooperative, Yes oriented to person, Yes place, and No time. Speech clear. CN grossly intact. Upper motor strength 5/5 and Lower motor strength 5/5. Sensation intact. Objective Labs 06/06/24 05:10 06/06/24 05:10 Labs: Laboratory Results - last 24 hr 06/05/24 06/05/24 06/05/24 05:44 11:10 14:06 WBC Cancelled 4.5 5.8 RBC Cancelled 3.99 L 4.58 Hgb Cancelled 8.0 L 9.2 L Hct Cancelled 25.4 L 29.2 L MCV Cancelled 64 L 64 L MCH Cancelled 20.1 L 20.1 L MCHC Cancelled 31.5 31.5 RDW Std Deviation Cancelled 56.5 H 56.6 H Plt Count Cancelled 7 L* D 201 D Neut % (Auto) Cancelled 71 75 Lymph % (Auto) Cancelled 21 14 [place] % (Auto) Cancelled 4 4 Eos % (Auto) Cancelled 3 6 Baso % (Auto) Cancelled 0 1 Neut # (Auto) Cancelled 3.2 4.3 Lymph # (Auto) Cancelled 1.0 0.8 L [place] # (Auto) Cancelled 0.2 0.3 Eos # (Auto) Cancelled 0.1 0.4 Baso # (Auto) Cancelled 0.0 0.0 Immature Gran # (Auto) Cancelled 0.00 0.03 H Absolute Nucleated RBC Cancelled 0.00 0.00 Immature Gran % Cancelled 0 1 H Nucleated RBC % Cancelled 0 0 Sodium 145 Potassium 3.8 Chloride 108 H Carbon Dioxide 26.3 Anion Gap 11 BUN 6 L Creatinine 0.9 Estim Creat Clear Calc 74.4 eGFR > 60 BUN/Creatinine Ratio 7 L Glucose 65 L Calculated Osmolality 284 Calcium 7.7 L Corrected Calcium 8.7 Phosphorus 4.0 Magnesium 1.6 Total Bilirubin 0.2 L AST 23 ALT 9 L Alkaline Phosphatase 59 Total Protein 5.4 L Albumin 2.7 L Globulin 2.7 Albumin/Globulin Ratio 1.0 L Misc Test Result Platelets confirmed Blood Type A Positive Antibody Screen NEGATIVE Blood Bank Wristband ID Yes Quality Measures Quality Measures VTE prophylaxis Assessment & Plan Assessment Current Active Medications: Generic Name Dose Route Start Last Admin Trade Name Freq PRN Reason Stop Dose Admin Dextrose 25 ml 05/31/24 21:18 06/05/24 16:48 Dextrose 50%-Water Inj 50 Ml Syringe IV 06/30/24 21:17 25 ml Q15MIN PRN Administration BG 50-70 responsive npo pt Dextrose 50 ml 05/31/24 21:18 Dextrose 50%-Water Inj 50 Ml Syringe IV 06/30/24 21:17 Q15MIN PRN BG <50 OR BG <70 & pt unresponsive Gabapentin 100 mg/ Gabapentin 400 mg 06/02/24 08:00 06/05/24 14:41 300 mg PO 07/02/24 07:59 400 mg TID LISA Administration Glucagon 1 mg 05/31/24 21:18 Glucagon Inj 1 Mg Vial IM Q15MIN PRN BG <70, and no IV access Insulin Glargine 10 unit 06/02/24 21:00 06/04/24 21:02 Insulin Glargine (Lantus) 5 Unit/0.05 Ml (Per 5 Units) SC 07/02/24 20:59 10 unit HS [facility] Administration Insulin Human Lispro 0 unit 06/01/24 07:30 06/05/24 17:11 Insulin Lispro (Admelog) 1 Unit/0.01 Ml Unit SC 07/01/24 07:29 Not Given AC [facility] Protocol Insulin Human Lispro 3 unit 06/03/24 11:30 06/05/24 17:11 Insulin Lispro (Admelog) 1 Unit/0.01 Ml Unit SC 07/03/24 11:29 Not Given [facility] Labetalol HCl 10 mg 06/01/24 05:05 06/04/24 16:28 Labetalol Inj 5 Mg/Ml Vial 20 Ml IVP 07/01/24 05:14 10 mg Q2H PRN Administration FOR SBP equal to or ABOVE 180 Losartan Potassium 50 mg 06/06/24 09:00 Losartan Potassium 25 Mg Tablet PO 07/06/24 08:59 QDAY LISA Olanzapine 10 mg 06/01/24 09:00 06/05/24 08:23 Olanzapine 5 Mg Tablet PO 07/01/24 08:59 10 mg QDAY LISA Administration Pantoprazole Sodium 40 mg 06/02/24 21:00 06/05/24 08:23 Pantoprazole Inj 40 Mg Vial IV 07/02/24 20:59 40 mg BID LISA Administration Quetiapine Fumarate 25 mg 06/01/24 21:00 06/04/24 21:03 Quetiapine Fumarate 25 Mg Tablet PO 07/01/24 20:59 25 mg HS LISA Administration Trazodone HCl 50 mg 06/01/24 21:00 06/04/24 21:03 Trazodone Hcl 50 Mg Tablet PO 07/01/24 20:59 50 mg HS LISA Administration Plan 64-year-old male patient known case of diabetes mellitus, hypertension, diabetic neuropathy, dementia, hep C, was brought from shelter facility after he was found to have severe anemia. Patient was found to have hemoglobin level of 5.2. Patient was given 2 units of blood in the ED. Patient was admitted for severe anemia workup. #Severe microcytic anemia most likely secondary to GI bleed #Liver cirrhosis workup #History of hep C Patient presented with severe microcytic anemia most likely secondary to GI bleed. Patient chart showed he had history of hep C positive that was tested in 2019. Patient reported that he has history of heroin IV abuse, also he has history of alcohol use disorder in which he was drinking a whole pack per day for 27 years. Patient denied any hematochezia, hematemesis, or hemoptysis. [place]-denied blood in stool and history of colon rectal cancer. Stool occult blood tested strongly positive for blood. Imaging: Abdomen pelvis CT showed: Thickening of the lower wall of the esophagus, consider reflux esophagitis. Pancreatic calcifications seen with prior episodes of pancreatitis. Perinephric stranding, consider urinary tract infection. Abundant stool throughout the colon no obstruction.Normal appendix, Rectal wall thickening, differential would include proctitis, or perirectal tumor not excluded, recommend direct inspection, Moderate prostatomegaly KUB-distention and air fluid levels Plan: -Colonoscopy Plane for tonight -Continue Golytle-on second jub -Consider Iron tablets after colonoscopy ? Follow-up on the haptoglobin level-Pending ? GI consultation, Dr. Silverman, recommendations appreciated ? D/C'ed Protonix #Diabetes mellitus Type 2 Insulin Dependent Patient has a past medical history of diabetes mellitus type 2 on glargine 20 units HS at [facility] and metformin as listed my [facility] paperwork. Currently holding Metformin. Diagnsotics: A1C 7.4 (06/03/2024) -Glargine 20 units HS & Lispro 3 units ? On insulin sliding scale ? Hypoglycemia protocol #History of hypertension ? on labetalol 10 mg IV as needed if SBP more than 180 ? started Losartan 25 mg p.o. ? Do med reconciliation and resume home medications as appropriate #History of dementia ? Resume patient home medication trazodone 50 mg at bedtime ? Resume home medication olanzapine 10 mg p.o. daily -Consider Haloperidol if need be #BPH -Continue Tamsulosin Disposition: Tele Fluids: none Feeding:NPO-->resume after colonosocpy tonight Thrombo prophylaxis: SCDs Gastric Ulcer prophylaxis: Pantoprazole CODE STATUS: DNR per [facility] - The patient's plan was discussed with attending Dr. Isabel and senior residents Dr. Colton Shine MD PGY1 Internal Medicine Attending Provider Attestation/Addendum I have discussed and was present for the essential components of the history, physical examination, diagnosis, and treatment plan with the resident. I agree with the patient's care as documented by the resident and amended herein by me. Jian Isabel DO. Although this document has been carefully reviewed, there may still be some phonetic and other typographical errors. These errors are purely grammatical due to imperfections in the software program and should not be construed in any way to compromise the substance of the patient's medical care during this visit.
--- NOTE | 2024-06-05 18:35 | PC.NURSE ---
x5 attempts to call Ivonne for consent. No answer.
--- NOTE | 2024-06-05 18:45 | PC.NURSE ---
Multiple attempts to call Ivonne today. No answer. Made charge Ivonne aware and surgery Staff at [facility] [employer]. Last attempt made at change of shift voicemail left and passed on to material handler 2nd shift RN.
[2024-06-05] MEDS: QUEtiapine FUMARATE 25 MG TABLET PO (21:04)
[2024-06-05] MEDS: traZODone HCL 50 MG TABLET PO (21:04)
[2024-06-06] VITALS: BP 169/100; PULSE 83; PULSE 92; RESP 12; TEMP 36.2; O2SAT 97
[2024-06-06 04:00] VITALS: BP 167/93; PULSE 84; PULSE 86; RESP 17; TEMP 36.5; O2SAT 97
[2024-06-06] MEDS: GABAPENTIN 100 MG, GABAPENTIN 300 MG 400 MG PO ×2 (05:07→13:42)
[2024-06-06 05:51] LABS: Basophils # (Auto) 0.1 Thou/mm3 (0.0-0.2); Basophils % (Auto) 1 % (0-2.5); Eosinophils # (Auto) 1.1 Thou/mm3 (0.0-0.5); Eosinophils % (Auto) 19 % (0-10); Hematocrit 25.3 % (41.0-53.0); Immature Granulocytes % (Auto) 0 % (0-0); Immature Granulocytes Auto 0.02 Thou/mm3 (0.00-0.00); Lymphocytes # (Auto) 1.5 Thou/mm3 (1.0-4.8); Lymphocytes % (Auto) 26 % (10-50); Mean Corpuscular HGB Conc 31.6 g/dl (31.0-37.0); Mean Corpuscular Hemoglobin 20.3 pg (25.0-35.0); Mean Corpuscular Volume 64 fL (80-100); Monocytes # (Auto) 0.4 Thou/mm3 (0.0-0.8); Monocytes % (Auto) 7 % (0-12); Neutrophils # (Auto) 2.7 Thou/mm3 (1.8-7.7); Neutrophils % (Auto) 47 % (37-80); Nucleated Red Blood Cell % 0 /100 WBC (0); Platelet Count 196 Thou/mm3 (140-440); RDW Standard Deviation 57.1 fL (35.1-43.9); Red Blood Count 3.94 Miln/mm3 (4.50-5.90); White Blood Count 5.7 Thou/mm3 (3.8-10.6)
[2024-06-06 06:30] LABS: Alanine Aminotransferase 11 U/L (10-49); Alkaline Phosphatase 64 U/L (46-116); Anion Gap 10 (7-16); Aspartate Amino Transferase 20 U/L (0-34); BUN/Creatinine Ratio 6 Ratio (12-20); Bilirubin,Total 0.5 mg/dL (0.3-1.2); Blood Urea Nitrogen 5 mg/dL (9-23); Calcium 8.4 mg/dL (8.3-10.6); Calcium (Corrected) 9.2 mg/dL (8.5-10.1); Carbon Dioxide 27.4 mMol/L (20.0-31.0); Chloride 105 mMol/L (98-107); Creatinine (Component) 0.9 mg/dL (0.6-1.3); Estimated Creatinine Clearance 74.4 mL/min (>60); Globulin 3.1 gm/dL (2.3-3.5); Glucose 95 mg/dL (74-106); Magnesium 1.4 mg/dL (1.6-2.6); Osmolality,Calculated 280 (275-295); Phosphorous 2.9 mg/dL (2.4-5.1); Potassium 3.4 mMol/L (3.4-5.1); Sodium 142 mMol/L (136-145); Total Protein 6.1 gm/dL (5.7-8.2); eGFR > 60 See Note
[2024-06-06 08:00] VITALS: BP 146/81; PULSE 76; RESP 16; TEMP 36.1; O2SAT 96
--- NOTE | 2024-06-06 08:48 | PC.SS ---
Follow up note: SS spoke to attending and patient may d/c back to [facility]. SS left Shobha @ message at [facility]. 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
--- NOTE | 2024-06-06 08:57 | PC.NURSE ---
Patient refusing medications and assessment. Patient starting yelling at me told me to get away. Patient getting aggressive swapping me away with hands and not to touch him. Will continue to monitor patient. Megan Sure in place.
--- NOTE | 2024-06-06 11:30 | PC.NURSE ---
patient has been off restraints since 06/02/24
[2024-06-06 12:00] VITALS: BP 170/87; PULSE 80; RESP 15; TEMP 36.3; O2SAT 97
--- NOTE | 2024-06-06 13:26 | PC.NURSE ---
gave report to melani at [facility]
--- NOTE | 2024-06-06 13:39 | ESDS_ITS ---
<Statement entered by Rossana Segura MD - 06/06/24 15:21> I personally saw and examined the patient and discussed the assessment and plan with the entire medicine team, including my attending Rossana Magana M.D. PGY-2 Disclaimer: Despite multiple revisions, due to the dictation software being used, the document bellow may not be free of grammatical errors including phonetic/typographic errors. However, this does not deter from our commitment to providing health care in the patient's best interest in mind. Planned Discharge Date 06/06/24 DS: Providers Provider Date of admission: 05/31/24 21:34 Primary care physician: Physician No Primary/Family Admitting Provider: Terrence Martinez MD Attending Provider on Admission: Efraín Isabel DO Consults: 05/31/24 20:57 Consult to Gastroenterology Stat Comment: [facility] Consulting Provider: Jeremiah Silverman Attending Provider on DC: Katelynn Shine MD Discharging Provider: Katelynn Shine MD DS: Diagnosis Problem List Completed Was Problem List Reviewed/Reconciled?: Yes Hospital Course Hospital Course Hospital course: Summary: 64-year-old male patient known case of diabetes mellitus, hypertension, diabetic neuropathy, dementia, hep C, [facility] after he was found to have severe anemia. Patient was found to have hemoglobin level of 5.2. Patient was given 2 units of blood in the ED. Patient was admitted for severe anemia work up with EGD and Colonscopy planned. ER Course: At the ED patient was found to have blood pressure of 170/97, pulse rate of 99, respiratory rate 18, normal temperature and saturating 97 on room air. His CBC showed hemoglobin of 5.3, with MCV of 56, MCH of 16.8, platelets were within normal limits of 202, CMP showed BUN of 41, glucose of 248. T. bili was within normal limits. Patient received 2 units of blood in the ED, and was started on Protonix drip. GI specialist Dr. Silverman was consulted he recommended to admit the patient for possible EGD. Hospital Course: On admission patient's hemoglobin of 5.3 and hematocrit 17.8 requiring 2 units of RBCs which improved his hemoglobin to 8.9 and hematocrit 27.7. Occult blood positive. Patient was made n.p.o. started on decreotide drip and Protonix. GI consulted, Dr. Silverman who planned EGD and colonoscopy for patient. EGD findings of esophageal ulcers, erythematous mucosa and colonoscopy was recommended as esophageal ulcers did not fully explain the hemoglobin drop of 5.1. Colonoscopy scheduled requiring patient to consume to GoLytely drugs. Colonoscopy performed on June 05, 2024 showed hemorrhoids and moderate diverticulosis in the sigmoid and descending colon. Repeat colonoscopy 10 years throughout hospital course patient's hemoglobin has remained stable between 8 and 9.2. Iron panel: Iron 37, TIBC 287, iron saturation 12, unsaturated iron binding 250. MCV remained at the microcytic level consistently at 64. Given microcytic anemia recommend iron tablets every other day. Please decrease as side effects of iron tablets can cause constipation. Anemia likely secondary to GI losses from hemorrhoids leading to iron deficiency and anemia of chronic diesase.Consider lead work up is concern is present. Pathology report sent out, unremarkable for other pathologies such as thalassemia's. No other source of bleeding noted on CT abdomen pelvis. Chest x-ray showed mild bronchitis pattern. Instructions: -Please start Losartan 50 mg PO orally as needed, please hold if BP <120/100 and monitor blood pressure daily. -Please add Iron tablets every other day as need, decrease if develop constipation -Please continue rest of medication -Please follow up with your primary care provider within one week of discharge -If your symptoms worsen,please seek immediate medical attention and return to your nearest emergency room -If you do not have a primary care provider, you may follow up at the [facility] at [address], [place] [address], #Severe microcytic anemia most likely secondary to iron deficiency #History of hep C #BPH #History of dementia #History of hypertension #Diabetes mellitus Type 2 Insulin Dependent - The patient's plan was discussed with attending Dr. Isabel and senior residents Dr. Colton Shine MD PGY1 Internal Medicine Time Spent with Patient Time attestation: Total time spent providing and/or coordinating discharge services: at least 30 minutes of care and coordination Exam Vital Signs Temp Pulse Resp BP Pulse Ox O2 Del Method O2 Flow Rate 97.4 F 80 15 170/87 H 97 Room Air 3 06/06/24 12:00 06/06/24 12:00 06/06/24 12:00 06/06/24 12:00 06/06/24 12:06/06/24 12:06/05/24 19:48 Narrative Exam General Appearance: Alert & Oriented X2, well-nourished male who is lying in bed in no acute distress HEENT: Skull symmetrical and atraumatic. Conjunctivae pin and moist. Pupils equal, round, reactive to light and accommodation (PERRL). External ear without lesion or discharge. Straight, nares patient, mucosa pink, no discharge. No thyroid nodule appreciated. No cervical lymphadenopathy. Cardio: Normal Rate and Rhythm with S1 and S2 heart sounds. No murmurs or extra heart sounds auscultated. No bruits on carotid auscultation. No peripheral edema or cyanosis. Lungs: Symmetric with good expansion. Chest and back non-tender. Breath sounds vesicular without crackles, wheezing or rhonchi Abdomen: Non-tender, Non-distended, Normal Reactive Bowel Sounds Neuro: Alert, cooperative, oriented to person, place, and No time. Speech clear. CN grossly intact. Upper motor strength 5/5 and Lower motor strength 5/5. Sensation intact. Discharge Plan Plan Patient Disposition: Xfer Skilled Nsg Fac (SNF) Patient condition on transfer: Stable Care Plan Goals: Instructions: -Please start Losartan 50 mg PO orally as needed, please hold if BP <120/100 and monitor blood pressure daily. -Please add Iron tablets every other day as need, decrease if develop constipation -Please continue rest of medication -Please follow up with your primary care provider within one week of discharge -If your symptoms worsen,please seek immediate medical attention and return to your nearest emergency room -If you do not have a primary care provider, you may follow up at the [facility] at [address], [place] [address], Prescriptions/Referrals Prescriptions/Med Rec: New losartan 50 mg tablet 50 mg PO QDAY 14 Days Qty: 14 0RF Metamucil 3.4 gram/5.4 gram powder 1 tbsp PO QDAY Qty: 660 0RF Rx Instructions: mix into at least 8 oz of water or juice before administering Continued acetaminophen 325 mg Tablet 650 mg PO Q6H PRN (Reason: Mild Pain (Scale Score 1-4)) acetaminophen 650 mg Suppository 650 mg DC Q6H PRN (Reason: Mild Pain (Scale Score 1-4)) sennosides-docusate sodium [Senna with Docusate Sodium] 8.6-50 mg Tablet 1 tab PO BID Rx Instructions: HOLD FOR DIARRHEA gabapentin 400 mg Capsule 400 mg PO Q8H magnesium hydroxide [Milk of Magnesia] 400 mg/5 mL Suspension 30 ml PO Q48H PRN (Reason: Constipation) ascorbic acid (vitamin C) [Vitamin C] 500 mg Tablet 500 mg PO BID trazodone 100 mg tablet 100 mg PO HS bisacodyl 10 mg Suppository 10 mg DC Q72H PRN (Reason: Constipation) Rx Instructions: GIVE IF MOM INEFFECTIVE Humulin R Regular U-100 Insuln 100 unit/mL Solution See Rx Instructions .ROUTE .COMPLEX Rx Instructions: INJECT SUBCUT PER INSTRUCTIONS 150-200=2 UNITS 201-250=3 UNITS 251-300=4 UNITS 301-350=5 UNITS 351-400=6 UNITS IF BS >400 GIVE 7 UNITS BEFORE MEALS AND PRIOR TO SLEEP docusate sodium 100 mg Capsule 100 mg PO QDAY scopolamine base [Transderm-Scop] 1 mg over 3 days Patch 3 Day 1 mg TOPICAL Q72H ondansetron 4 mg Tablet,Disintegrating 4 mg PO Q6H PRN (Reason: NAUSEA OR VOMITING) multivitamin with iron-mineral Tablet 1 tab PO QDAY Pro-Stat Sugar Free 15 gram- 100 kcal/30 mL Liquid In Packet 1 ea PO BID tamsulosin 0.4 mg capsule 0.4 mg PO QDAY 30 Days Qty: 30 2RF olanzapine 15 mg tablet 15 mg PO HS 30 Days Qty: 30 2RF insulin glargine [Lantus Solostar U-100 Insulin] 100 unit/mL (3 mL) Insulin Pen 20 unit SUBCUT QDAY 30 Days Qty: 0 0RF Rx Instructions: HOLD FOR BS <100 Discontinued lorazepam 1 mg tablet 1 mg PO Q8H Referrals: No Primary/Family,Physician [Primary Care Provider] - Patient/Caregiver Discharge Instructions Education Materials: Bleeding Gastrointestinal, Anemia, Anatomy of the Digestive System Print Language: [place] Stand Alone Forms: Carri Award Info., Patient Portal Info Letter Discharge Order Discharge Orders: Discharge (Routine); Ordered 06/06/24 Ordered By: Katelynn Shine Quality Discharge Quality Measures VTE prophylaxis MD Attestestation MD Attestation I have discussed and was present for the essential components of the discharge history, physical examination, diagnosis, and discharge treatment plan with the resident. I agree with the patient's discharge care as documented by the resident and amended herein by me. Jian Isabel DO. The patient understood all discharge instructions, all questions were answered satisfactorily. The patient was instructed to return to the Emergency Department is symptoms worsened or persisted. Patient was stable, afebrile and tolerating p.o. intake at time of discharge back to [facility] Although this document has been carefully reviewed, there may still be some phonetic and other typographical errors. These errors are purely grammatical due to imperfections in the software program and should not be construed in any way to compromise the substance of the patient's medical care during this visit.
--- NOTE | 2024-06-06 15:47 | PC.SS ---
Rounding Note: Plan is to d/c the patient today.
[2024-06-06 16:00] VITALS: BP 163/89; PULSE 78; RESP 20; TEMP 36.6; O2SAT 95
--- NOTE | 2024-06-06 16:03 | PC.SS ---
SS received call from Carmina at [facility] transportation has been set back to 4:30pm to [place] now 5:30pm. Humza FITZGERALD is aware.
[2024-06-06] MEDS: INSULIN LISPRO (AdmeLOG) 1 UNIT/0.01 ML UNIT 3 UNIT SC (16:56)
[2024-06-06] MEDS: INSULIN LISPRO (AdmeLOG) 1 UNIT/0.01 ML UNIT SC (16:56)
[2024-06-10 07:09] LABS: Haptoglobin* 168 mg/dL (43-212)
== END 2024-06-06 18:04 | disposition skilled nursing facility (03) | DRG 242 ==
LOC: SERX 19:19 → SERHOLD 21:37 → S2NX 06-01 14:55
PROVIDERS: Nurse Practitioner Family; Specialist; Student in an Organized Health Care Education/Training Program; Admitting Provider Internal Medicine; Emergency Provider Emergency Medicine; Visit Provider Student in an Organized Health Care Education/Training Program
PROC: 0DJ08ZZ Inspection of Upper Intestinal Tract, Via Natural or Artificial Opening Endoscopic (ICD-10-PCS; CPT 43239; principal; 2024-06-02 16:15)
PROC: 0DJD8ZZ Inspection of Lower Intestinal Tract, Via Natural or Artificial Opening Endoscopic (ICD-10-PCS; CPT 45378; principal; 2024-06-05 16:00)
DX: K22.11 Ulcer of esophagus with bleeding (principal); E11.42 Type 2 diabetes mellitus with diabetic polyneuropathy; I10 Essential (primary) hypertension; F03.93 Unspecified dementia, unspecified severity, with mood disturbance; E87.5 Hyperkalemia; F31.9 Bipolar disorder, unspecified; K57.31 Diverticulosis of large intestine without perforation or abscess with bleeding; K64.8 Other hemorrhoids; K86.89 Other specified diseases of pancreas; N40.0 Benign prostatic hyperplasia without lower urinary tract symptoms; F15.10 Other stimulant abuse, uncomplicated; F11.10 Opioid abuse, uncomplicated; D63.8 Anemia in other chronic diseases classified elsewhere; D50.9 Iron deficiency anemia, unspecified; F10.10 Alcohol abuse, uncomplicated; D62 Acute posthemorrhagic anemia; I47.20 Ventricular tachycardia, unspecified; B19.20 Unspecified viral hepatitis C without hepatic coma; Z66 Do not resuscitate; Z78.1 Physical restraint status; Z79.4 Long term (current) use of insulin; Z79.899 Other long term (current) drug therapy; Z53.20 Procedure and treatment not carried out because of patient's decision for unspecified reasons
CPT/HCPCS: 36415; 36430; 71045; 74018; 74176; 80048; 80053; 80074; 82607; 82746; 83010; 83036; 83540; 83550; 83615; 83735; 84100; 85014; 85018; 85025; 85046; 85610; 85730; 86703; 86850; 86900; 86901; 86923; 93005; 96361; 96365; 96366; 96368; 96372; 96374; 96375; 99285; A4216; J0360; J0696; J1200; J1630; J1815; J2060; J2250; J2354; J2358; J2470; J3010; J3475; J3490; J7050; J7120; P9016; A9270; J1920; J2359

== ENCOUNTER 2024-08-12 15:20 | Inpatient (IN) | payer MEDICAID, SELFPAY ==
[2024-08-12] VITALS (10 sets, daily range): BP systolic 125–159; BP diastolic 76–87; PULSE 91–101; RESP 14–20; TEMP 36.7–37.2; O2SAT 97–100; BMI 20.9
--- NOTE | 2024-08-12 15:54 | PC.NURSE ---
SENT FROM [facility] FOR LOW HGB, DRAWN TODAY
--- NOTE | 2024-08-12 17:38 | XR_ITS ---
Examination: AP chest single view Technique one AP portable semiupright chest single view Date and time: August 12, 2024 1747 hours INDICATIONS: Coughing chest pain today FINDINGS: Normal heart size Accentuation bronchovascular markings Normal lumbar pneumonia No pulmonary edema IMPRESSION: Bronchitis pattern
--- NOTE | 2024-08-12 17:38 | EKG_ITS ---
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
--- NOTE | 2024-08-12 17:58 | PD.EDRECHK ---
ED Recheck Abnl Lab Rx-RME/HPI General Chief Complaint: Recheck/Abnormal Lab/Rx Stated Complaint: ABNORMAL LABS Time Seen by Provider: 08/12/24 19:15 Arrival date/time: 08/12/24 15:20 Limitations: no limitations RME / HPI RME / HPI narrative: 64 year old male with history of iron deficiency anemia, hypertension, diabetes, hep C, presents to the ED BIBA from [facility] for evaluation of low hemoglobin. The patient reports feeling slightly weak but denies shortness of breath or other concerning symptoms. Patient has no additional complaints or concerns. Related Data Home Medications ?Medication ?Instructions ?Recorded ?Confirmed acetaminophen 325 mg tablet 650 mg PO Q6H PRN Mild Pain (Scale 01/31/23 08/13/24 Score 1-4) ascorbic acid (vitamin C) 500 mg 500 mg PO BID 01/31/23 08/13/24 tablet (Vitamin C) bisacodyl 10 mg rectal suppository 10 mg SC Q72H PRN Constipation 01/31/23 08/13/24 docusate sodium 100 mg capsule 100 mg PO QDAY 01/31/23 08/13/24 gabapentin 400 mg capsule 400 mg PO Q8H 01/31/23 08/13/24 magnesium hydroxide 400 mg/5 mL 30 ml PO Q72H PRN Constipation 01/31/23 08/13/24 oral suspension (Milk of Magnesia) ondansetron 4 mg disintegrating 4 mg PO Q6H PRN NAUSEA OR VOMITING 01/31/23 08/13/24 tablet scopolamine base 1 mg over 3 days 1 mg topical Q72H 01/31/23 08/13/24 transdermal patch (Transderm-Scop) sennosides 8.6 mg-docusate sodium 1 tab PO BID 01/31/23 08/13/24 50 mg tablet (Senna with Docusate Sodium) trazodone 100 mg tablet 50 mg PO DAILY 01/31/23 08/13/24 ferrous sulfate 325 mg (65 mg 325 mg PO QDAY 08/13/24 08/13/24 iron) tablet (Feosol) metformin 500 mg tablet 1,000 mg PO BID 08/13/24 08/13/24 olanzapine 15 mg tablet 10 mg PO HS 08/13/24 08/13/24 psyllium husk 3.4 gram/5.4 gram 1 tsp PO QDAY 08/13/24 08/13/24 oral powder (Metamucil) Previous Rx's ?Medication ?Instructions ?Recorded tamsulosin 0.4 mg capsule 0.4 mg PO QDAY 30 days #30 caps 02/02/23 bisacodyl 10 mg rectal suppository 10 mg SC Q72H PRN Constipation #30 08/14/24 ea insulin glargine 100 unit/mL (3 20 unit (0.2 mL) subcut QDAY #15 mL 08/14/24 mL) subcutaneous pen lisinopril 20 mg tablet 20 mg PO QDAY 30 days #30 tabs 08/14/24 pantoprazole 40 mg tablet,delayed 40 mg PO BID 30 days #60 tabs 08/14/24 release (Protonix) Allergies Allergy/AdvReac Type Severity Reaction Status Date / Time No Known Allergies Allergy Verified 08/12/24 15:59 Review of Systems Review of Systems Systems Reviewed: All systems reviewed, normal except as documented Past Medical History Past Medical History NEUROLOGIC: Positive Neurological Disorders CARDIAC: Positive Cardiac Disorders, Hypercholesterolemia and Hypertension RESPIRATORY: Positive Pneumonia GENITOURINARY: Positive Benign Prostatic Hyperplasia ENDOCRINE: Positive Endocrine Disorders and Diabetes Mellitus Type 2 HEMATOLOGIC: Positive Anemia PSYCHO/SOCIAL: Positive Bipolar Disorder, Depression and Anxiety Family History FAMILY HISTORY: Positive Family Cardiac Disorders and Family Cancer; Negative Family Psychiatric Problems, Family Respiratory Disorders, Family Gastrointestinal Problems, Family Surgery or Family Anesthesia Reaction Social History SMOKING STATUS: Former smoker ED Exam General Limitations: Present no limitations General appearance: Present alert, in no apparent distress and other (Pale ) Head Head exam: Present atraumatic and normocephalic Eye Eye exam: Present normal appearance, PERRL and EOMI ENT ENT exam: Present normal exam, normal oropharynx and mucous membranes moist Neck Neck exam: Present normal inspection, full ROM and trachea midline Chest Chest inspection: Present normal inspection and symmetric chest wall rise Respiratory Respiratory exam: Present normal lung sounds bilaterally Cardiovascular Cardiovascular exam: Present regular rate, normal rhythm and normal heart sounds Abdominal Exam Abdominal exam: Present soft and normal bowel sounds Extremities Exam Extremities exam: Present normal inspection and full ROM Back Exam Back exam: Present normal inspection and full ROM Neurological Exam Neurological exam: Present alert, oriented X3 and CN II-XII intact Psychiatric Psychiatric exam: Present normal affect and normal mood Skin Skin exam: Present warm, dry, intact and pallor Course Quality Measures none Orders Category Date Time Status Litigation Assistant NOW Care 08/12/24 17:38 Completed Litigation Assistant Q4H START 00 Care 08/12/24 16:33 Completed Continuous Pulse Oximetry NOW Care 08/12/24 17:38 Completed EKG (ED ONLY) *Do not use* NOW Care 08/12/24 17:38 Completed Insert IV NOW Care 08/12/24 16:33 Completed Insert IV NOW Care 08/12/24 17:38 Completed Obtain Written Consent For: NOW Care 08/12/24 17:39 Completed Transfuse,blood/blood products NOW Care 08/12/24 17:37 Completed Transfuse,blood/blood products NOW Care 08/12/24 17:37 Completed Vital Signs, Non-Routine Timed Care 08/12/24 17:39 Ordered Diet Regular Diet 08/12/24 Dinner Completed EKG (ED Only) Stat Exams 08/12/24 17:38 Draft XR chest 1V portable Stat Exams 08/12/24 17:38 Completed CBC Stat Lab 08/12/24 17:37 Completed Comprehensive Metabolic Panel Stat Lab 08/12/24 17:38 Completed Hgb and Hct Post-Transfusion Stat Lab 08/12/24 18:32 Completed Partial Thromboplastin Time Stat Lab 08/12/24 17:38 Completed Path Review Blood Smear Stat Lab 08/12/24 18:32 Completed Prothrombin Time with INR Stat Lab 08/12/24 17:38 Completed Red Blood Cells Stat Lab 08/12/24 18:32 Completed Type and Screen Stat Lab 08/12/24 18:32 Completed Urinalysis Stat Lab 08/13/24 18:32 Completed Acetaminophen Tab [Tylenol Tab] Med 08/12/24 17:37 Discontinued 650 mg PO X1 ONE DiphenhydrAMINE [Benadryl] Med 08/12/24 17:37 Discontinued 25 mg PO X1 ONE Insulin Regular Med 08/12/24 19:19 Discontinued 10 unit IV X1 ONE LORazepam [Ativan Inj] Med 08/12/24 21:45 Discontinued 1 mg IVP X1 ONE Pantoprazole Inj [Protonix Inj] Med 08/12/24 22:05 Discontinued 80 mg IVP X1 ONE Pantoprazole/Ns 80Mg IV Premix [Protonix/NS 80mg IV Med 08/12/24 22:06 Discontinued Premix] 80 mg in 100 ml IV X1 Sodium Chloride 0.9% 1000 ml [Ns] 1,000 ml Med 08/12/24 17:37 Discontinued IV 100 mls/hr Oxygen Delivery NOW RT 08/12/24 17:38 Completed Vital Signs Vital signs: Vital Signs Temperature 98.3 F 08/12/24 16:18 Pulse Rate 98 08/12/24 16:18 Respiratory Rate 18 08/12/24 16:18 Blood Pressure 144/76 H 08/12/24 16:18 Pulse Oximetry (%) 97 08/12/24 16:18 Oxygen Delivery Method Room Air 08/12/24 16:18 Pulse ox is 97% on room air which is adequate. Recheck / Abnormal Lab / Rx MDM Narrative MDM Narrative:: IGilma am scribing for and in the presence of Dr. Lemus. 1800: Patient signed out to Dr. Rm pending blood transfusion and final disposition. Patient data External records reviewed:: [facility] previous records, EMS form and [facility] records (I reviewed pmhx and medication list from [facility] ) Clinical information provided by:: patient and EMS Social determinants that could affect healthcare access:: housing ([place]) Patient has the following chronic illnesses:: iron deficiency anemia, hypertension, diabetes, hep C How is presenting disease/condition affected by chronic disease/condition?: exacerbated by Evaluation data The following diagnostics were reviewed and interpreted by me:: lab results and radiology exam(s) Lab and/or radiology exams considered but not ordered:: None Interpretation Summary: Ordering Physician: Andres Lemus MD Date of Service: 08/12/24 Procedure(s): XR chest 1V portable Accession Number(s): [id number] cc: Andres Lemus MD; Lyle Kiran MD; NO PRIMARY/FAMILY,PHYSICIAN~ Examination: AP chest single view Technique one AP portable semiupright chest single view Date and time: August 12, 2024 1747 hours INDICATIONS: Coughing chest pain today FINDINGS: Normal heart size Accentuation bronchovascular markings Normal lumbar pneumonia No pulmonary edema IMPRESSION: Bronchitis pattern Dictated By: Lyle Kiran MD Signed By: <Electronically signed by Lyle Kiran MD in OV> 08/12/24 1807 Medications / Prescriptions Medications or Prescriptions considered but not ordered:: None Medication administrations:: Medication Administration History Discontinued Medications Acetaminophen (Acetaminophen 325 Mg Tablet) 650 mg PO X1 ONE Stop: 08/12/24 17:38 Last Admin: 08/12/24 18:27 Dose: 650 mg Documented By: ZEFERINO Acetaminophen (Acetaminophen 325 Mg Tablet) 650 mg PO Q6H PRN PRN Reason: Fever >99.5 Stop: 09/11/24 22:26 Acetaminophen (Acetaminophen 325 Mg Tablet) 1,000 mg PO Q6H PRN PRN Reason: PAIN SCALE 1-3 (mild Stop: 09/11/24 22:26 Acetaminophen (Acetaminophen 500 Mg Tablet) 1,000 mg PO Q6H PRN PRN Reason: PAIN SCALE 1-3 (mild Stop: 09/11/24 22:26 Ascorbic Acid (Ascorbic Acid 250 Mg Tablet) 500 mg PO BID LISA Stop: 09/13/24 20:59 Bisacodyl (Bisacodyl 10 Mg Supp) 10 mg SC Q72H PRN; Protocol PRN Reason: Constipation Stop: 09/13/24 10:14 Chlordiazepoxide HCl (Chlordiazepoxide Hcl 25 Mg Capsule) 50 mg PO Q6HR LISA Stop: 08/18/24 11:59 Last Admin: 08/14/24 05:56 Dose: 50 mg Documented By: Admin: 08/13/24 23:52 Dose: 50 mg Documented By: Admin: 08/13/24 17:06 Dose: Not Given Documented By: SAAD Non-Admin Reason: NPO Admin: 08/13/24 12:45 Dose: 50 mg Documented By: SAAD Chlordiazepoxide HCl (Chlordiazepoxide Hcl 25 Mg Capsule) 50 mg PO TID LISA Stop: 08/19/24 13:59 Dextrose (Dextrose 50%-Water Inj 50 Ml Syringe) 25 ml IV Q15MIN PRN PRN Reason: BG 50-70 responsive npo pt Stop: 09/11/24 22:31 Dextrose (Dextrose 50%-Water Inj 50 Ml Syringe) 50 ml IV Q15MIN PRN PRN Reason: BG <50 OR BG <70 & pt unresponsive Stop: 09/11/24 22:31 Diphenhydramine HCl (Diphenhydramine 25 Mg Capsule) 25 mg PO X1 ONE Stop: 08/12/24 17:38 Last Admin: 08/12/24 18:28 Dose: 25 mg Documented By: ZEFERINO Diphenhydramine HCl (Diphenhydramine Inj 50 Mg/Ml Vial) Confirm Administered Dose 50 mg .ROUTE .STK-MED ONE Stop: 08/13/24 18:17 Diphenhydramine HCl (Diphenhydramine Inj 50 Mg/Ml Vial) 25 mg IVP [id number] PRN PRN Reason: MODERATE SEDATION Stop: 08/13/24 20:59 Docusate Sodium (Docusate Sod 100 Mg Capsule) 100 mg PO QDAY LISA; Protocol Stop: 09/14/24 08:59 Fentanyl Citrate (Fentanyl Cit Inj 50 Mcg/Ml Amp 2ml) Confirm Administered Dose 100 mcg .ROUTE .STK-MED ONE Stop: 08/13/24 18:17 Fentanyl Citrate (Fentanyl Cit Inj 50 Mcg/Ml Amp 2ml) 50 mcg IVP Q2M PRN PRN Reason: MODERATE SEDATION Stop: 08/13/24 20:59 Ferrous Sulfate (Ferrous Sulf 325 Mg Tablet) 325 mg PO QDAY LISA Stop: 09/14/24 08:59 Folic Acid (Folic Acid 1 Mg Tablet) 1 mg PO BID LISA Stop: 08/17/24 22:59 Last Admin: 08/14/24 09:41 Dose: 1 mg Documented By: Admin: 08/13/24 20:14 Dose: 1 mg Documented By: Admin: 08/13/24 09:13 Dose: 1 mg Documented By: Admin: 08/12/24 23:06 Dose: 1 mg Documented By: MARCOS Glucagon (Glucagon Inj 1 Mg Vial) 1 mg IM Q15MIN PRN PRN Reason: BG <70, and no IV access Sodium Chloride (Ns) 1,000 mls @ 100 mls/hr IV .Q10H ONE Stop: 08/13/24 03:36 Last Admin: 08/12/24 18:29 Dose: 100 mls/hr Documented By: ZEFERINO Pantoprazole Sodium (Protonix/Ns 80mg Iv Premix) 80 mg in 100 mls @ 10 mls/hr IV X1 ONE Stop: 08/13/24 08:05 Last Infusion: 08/13/24 09:10 Dose: Infused Documented By: Admin: 08/12/24 23:10 Dose: 10 mls/hr Documented By: MARCOS Octreotide Acetate 1,000 mcg/ (Sodium Chloride) 102 mls @ 5.1 mls/hr IV .Q20H LISA; Protocol Stop: 09/12/24 18:59 Last Admin: 08/13/24 19:38 Dose: 50 mcg/hr, 5.1 mls/hr Documented By: AM Octreotide Acetate 1,000 mcg/ (Sodium Chloride) 102 mls @ 5.1 mls/hr IV .Q20H ONE; Protocol Stop: 08/13/24 18:59 Last Admin: 08/12/24 23:11 Dose: 50 mcg/hr, 5.1 mls/hr Documented By: MARCOS Magnesium Sulfate (Magnesium Sulfate Ivpb) 4 gm in 50 mls @ 12.5 mls/hr IV X1 ONE Stop: 08/13/24 11:56 Last Infusion: 08/13/24 13:11 Dose: Infused Documented By: Admin: 08/13/24 09:12 Dose: 12.5 mls/hr Documented By: SAAD Ceftriaxone Sodium/Dextrose (Rocephin/D5w 1gm Iv Premix) 1 gm in 50 mls @ 100 mls/hr IV QDAY LISA Stop: 08/20/24 09:18 Last Admin: 08/13/24 10:01 Dose: 100 mls/hr Documented By: SAAD Insulin Glargine (Insulin Glargine (Lantus) 5 Unit/0.05 Ml (Per 5 Units)) 10 unit SC QDAY LISA Stop: 09/12/24 09:29 Last Admin: 08/14/24 09:41 Dose: 10 unit Documented By: MARCO Co-signed By: DWIGHT Admin: 08/13/24 10:01 Dose: 10 unit Documented By: SAAD Co-signed By: DWIGHT Insulin Human Lispro (Insulin Lispro (Admelog) 1 Unit/0.01 Ml Unit) 0 unit SC AC LISA; Protocol Stop: 09/12/24 07:29 Insulin Human Lispro (Insulin Lispro (Admelog) 1 Unit/0.01 Ml Unit) 0 unit SC Q6HR LISA; Protocol Stop: 09/12/24 05:59 Last Admin: 08/13/24 06:06 Dose: 2 unit Documented By: ELIF Co-signed By: GIANCARLO Insulin Human Lispro (Insulin Lispro (Admelog) 1 Unit/0.01 Ml Unit) 0 unit SC Q6HR LISA; Protocol Stop: 09/12/24 05:59 Last Admin: 08/14/24 12:16 Dose: 5 unit Documented By: MARCO Co-signed By: MICHAEL Admin: 08/14/24 05:13 Dose: Not Given Documented By: AM Non-Admin Reason: Per Protocol Admin: 08/13/24 23:52 Dose: 3 unit Documented By: AM Co-signed By: EDNA Admin: 08/13/24 17:06 Dose: Not Given Documented By: KD Non-Admin Reason: NPO Admin: 08/13/24 12:42 Dose: Not Given Documented By: KD Non-Admin Reason: NPO Insulin Human Regular (Insulin Hum Regular 1 Unit/0.01 Ml (Per Unit)) 10 unit IV X1 ONE Stop: 08/12/24 19:20 Last Admin: 08/12/24 19:39 Dose: 10 unit Documented By: SIA Co-signed By: MARCOS Lisinopril (Lisinopril 20 Mg Tablet) 20 mg PO X1 ONE Stop: 08/14/24 10:16 Last Admin: 08/14/24 12:26 Dose: 20 mg Documented By: MARCO Lisinopril (Lisinopril 20 Mg Tablet) 20 mg PO QDAY LISA Stop: 09/14/24 08:59 Lorazepam (Lorazepam 2 Mg/Ml Vial) 1 mg IVP X1 ONE Stop: 08/12/24 21:46 Last Admin: 08/12/24 21:50 Dose: 1 mg Documented By: MARCOS Lorazepam (Lorazepam 0.5 Mg Tablet) 0.5 mg PO Q4HR PRN PRN Reason: CIWA Score 2-6 Stop: 08/17/24 22:51 Last Admin: 08/13/24 20:49 Dose: 0.5 mg Documented By: Admin: 08/13/24 00:23 Dose: 0.5 mg Documented By: MARCOS Lorazepam (Lorazepam 2 Mg/Ml Vial) 0.5 mg IV Q2HR PRN PRN Reason: CIWA SCORE 7-13 Stop: 08/17/24 22:51 Lorazepam (Lorazepam 2 Mg/Ml Vial) 1 mg IV Q2HR PRN PRN Reason: CIWA SCORE 14-19 Stop: 08/17/24 22:51 Lorazepam (Lorazepam 2 Mg/Ml Vial) 2 mg IV Q2HR PRN PRN Reason: CIWA SCORE 20-25 Stop: 08/17/24 22:51 Lorazepam (Lorazepam 2 Mg/Ml Vial) 1 mg IM X1 ONE Stop: 08/12/24 22:55 Last Admin: 08/13/24 00:19 Dose: Not Given Documented By: CB Non-Admin Reason: Discontinued Lorazepam (Lorazepam 2 Mg/Ml Vial) 1 mg IVP X1 ONE Stop: 08/12/24 22:59 Last Admin: 08/12/24 23:10 Dose: 1 mg Documented By: CB Lorazepam (Lorazepam 2 Mg/Ml Vial) 2 mg IVP X1 ONE Stop: 08/13/24 01:28 Last Admin: 08/13/24 01:38 Dose: 2 mg Documented By: CB Lorazepam (Lorazepam 2 Mg/Ml Vial) 0.5 mg IV Q2HR PRN PRN Reason: CIWA SCORE 7-13 Stop: 08/17/24 22:51 Last Admin: 08/14/24 05:56 Dose: 0.5 mg Documented By: Admin: 08/14/24 01:28 Dose: 0.5 mg Documented By: AM Comments: CIWA 12 Losartan Potassium (Losartan Potassium 25 Mg Tablet) 25 mg PO QDAY LISA Stop: 09/12/24 08:59 Last Admin: 08/14/24 09:40 Dose: 25 mg Documented By: Admin: 08/13/24 09:15 Dose: 25 mg Documented By: KD Magnesium Hydroxide (Milk Of Magnesia Susp 30 Ml Udc) 30 ml PO Q72H PRN; Protocol PRN Reason: Constipation Stop: 09/13/24 10:14 Metformin HCl (Metformin 500 Mg Tablet) 1,000 mg PO BIDAC [facility] Stop: 09/13/24 16:59 Midazolam HCl (Midazolam Inj 1 Mg/Ml Vial 2 Ml) Confirm Administered Dose 4 mg .ROUTE .STK-MED ONE Stop: 08/13/24 18:17 Midazolam HCl (Midazolam Inj 1 Mg/Ml Vial 2 Ml) 2 mg IVP Q2M PRN PRN Reason: Moderate Sedation Stop: 08/13/24 20:59 Olanzapine (Olanzapine 5 Mg Tablet) 10 mg PO HS [facility] Stop: 09/13/24 20:59 Ondansetron HCl (Ondansetron Inj 2 Mg/Ml Inj 2 Ml) 4 mg IVP Q6H PRN; Protocol PRN Reason: NAUSEA OR VOMITING Stop: 09/11/24 22:26 Ondansetron HCl (Ondansetron Odt 4 Mg Tabrap) 4 mg PO Q6H PRN; Protocol PRN Reason: NAUSEA OR VOMITING Stop: 09/13/24 10:14 Ondansetron HCl (Ondansetron Inj 2 Mg/Ml Inj 2 Ml) 4 mg IVP Q6H PRN; Protocol PRN Reason: NAUSEA OR VOMITING Stop: 09/11/24 22:26 Pantoprazole Sodium (Pantoprazole Inj 40 Mg Vial) 80 mg IVP X1 ONE Stop: 08/12/24 22:06 Last Admin: 08/12/24 23:07 Dose: 80 mg Documented By: MARCOS Pantoprazole Sodium (Pantoprazole Inj 40 Mg Vial) 40 mg IVP Q12HR LISA Stop: 09/12/24 08:59 Last Admin: 08/14/24 09:40 Dose: 40 mg Documented By: MGAcosta Admin: 08/13/24 20:14 Dose: 40 mg Documented By: Admin: 08/13/24 09:13 Dose: 40 mg Documented By: SAAD Psyllium Hydrophilic Mucilloid (Psyllium 1 Pkt Packet) 1 pkt PO QDAY [facility] Stop: 09/14/24 08:59 Sennosides (Senna Tablet) 1 tab PO QDAY [facility]; Protocol Stop: 09/12/24 08:59 Last Admin: 08/14/24 09:41 Dose: 1 tab Documented By: Admin: 08/13/24 09:13 Dose: 1 tab Documented By: SAAD Sennosides (Senna/Docusate Sod 1 Tab Tablet) 1 tab PO BID [facility]; Protocol Stop: 09/13/24 20:59 Sodium Polystyrene Sulfonate (Sod Polystyrene Sulfon Susp 15 Gm/60 Ml Btl) 30 gm PO X1 ONE Stop: 08/12/24 22:33 Last Admin: 08/13/24 00:19 Dose: Not Given Documented By: MARCOS Non-Admin Reason: Discontinued Tamsulosin HCl (Tamsulosin Hcl 0.4 Mg Capsule) 0.4 mg PO QDAY [facility] Stop: 09/14/24 08:59 Thiamine HCl (Thiamine 100 Mg Tablet) 100 mg PO BID LISA Stop: 08/17/24 22:59 Last Admin: 08/14/24 09:41 Dose: 100 mg Documented By: Admin: 08/13/24 20:14 Dose: 100 mg Documented By: Admin: 08/13/24 09:13 Dose: 100 mg Documented By: Admin: 08/12/24 23:06 Dose: 100 mg Documented By: MARCOS Trazodone HCl (Trazodone Hcl 50 Mg Tablet) 50 mg PO DAILY LISA Stop: 09/14/24 08:59 See above Consultations Consultation(s) initiated? (list below): No Diagnosis Recheck Differential Diagnosis: other (anemia, iron deficiency anemia, abnormal labs) Most likely diagnosis given after review of the tests above:: Anemia requiring blood transfusion Admission Indicated Admission indicated?: not indicated Admission Request Was there a request for admission?: No Disposition Plan Disposition Plan: other (specify) (Signed out to Dr. Rm ) Discharge Plan Plan Patient Disposition: Admit Acute Care w/in Hospital Patient condition on transfer: Stable Problem List Clinical Impression: GI bleed, Anemia
[2024-08-12] MEDS: ACETAMINOPHEN 325 MG TABLET 650 MG PO (18:27)
[2024-08-12] MEDS: DiphenhydrAMINE 25 MG CAPSULE PO (18:28)
[2024-08-12] MEDS: SODIUM CHLORIDE 0.9% 1000 ML 1,000 ML 100 ML IV (18:29)
[2024-08-12 18:46] LABS: Basophils % (Auto) 1 % (0-2.5); Eosinophils # (Auto) 0.2 Thou/mm3 (0.0-0.5); Eosinophils % (Auto) 3 % (0-10); Hematocrit 21.8 % (41.0-53.0); Immature Granulocytes % (Auto) 0 % (0-0); Immature Granulocytes Auto 0.01 Thou/mm3 (0.00-0.00); Lymphocytes % (Auto) 16 % (10-50); Mean Corpuscular HGB Conc 30.7 g/dl (31.0-37.0); Mean Corpuscular Volume 59 fL (80-100); Monocytes # (Auto) 0.4 Thou/mm3 (0.0-0.8); Monocytes % (Auto) 7 % (0-12); Neutrophils # (Auto) 4.4 Thou/mm3 (1.8-7.7); Neutrophils % (Auto) 73 % (37-80); Nucleated Red Blood Cell % 0 /100 WBC (0); Platelet Count 190 Thou/mm3 (140-440); RDW Standard Deviation 37.8 fL (35.1-43.9); Red Blood Count 3.72 Miln/mm3 (4.50-5.90)
--- NOTE | 2024-08-12 18:47 | PD.EDADDENDU ---
Emergency Room Addendum Addendum Narrative: 1800: Care assumed from Dr. Lemus the previous shift emergency physician. Past medical, surgical, social and family history reviewed. Vitals and home medications reviewed. Results and treatment plan discussed. I will assume the care of the patient at this time and will follow the patient, pending labs. Please refer to the emergency department record for history and examination from initial visit. EKG done at 1808, NSR, rate of 90, normal axis, normal intervals, no acute ST or T-wave changes, according to my interpretation. HnH is low at 6.7/21.8. 2 units pRBCs were ordered by the previous physician. 1917: FSBS is 489. 10 units of insulin ordered. Repeat HnH is now 5.7/18.3. 2157: Discussed case with Dr. Silverman from GI regarding consultation. Discussed patients ED course, exam findings, labs, and radiology results. States to admit the patient and he will consult. Recommends clear liquids then making the patient NPO after midnight. 2201: Discussed case with the resident physician, attending Dr. Schwartz from Hospitalist service regarding admission. Discussed patients ED course, exam findings, labs, and radiology results. The Hospitalist agrees to accept the patient for admission. Critical Care Time: 35 minutes The high probability of sudden, clinically significant deterioration in the patient?s condition required the highest level of my preparedness to intervene urgently. The services I provided to this patient were to treat and/or prevent clinically significant deterioration. Services included the following: chart data review, reviewing nursing notes and/or old charts, documentation time, bilingual sales consultant collaboration regarding findings and treatment options, medication orders and management, direct patient care, vital sign assessments and ordering, interpreting and reviewing diagnostic studies and lab tests. Aggregate critical care time includes only time during which I was engaged in work directly related to the patient?s care, as described above, whether at bedside or elsewhere in the Emergency Department. It did not include time spent performing other reported procedures or the services of residents, students, nurses or physician assistants.
[2024-08-12 18:51] LABS: Hemoglobin 6.7 g/dL (13.5-16.0)
[2024-08-12 19:10] LABS: Alanine Aminotransferase 14 U/L (10-49); Albumin, Serum 3.8 gm/dL (3.4-4.8); Albumin/Globulin Ratio 1.3 (1.2-2.2); Alkaline Phosphatase 74 U/L (46-116); Anion Gap 11 (7-16); BUN/Creatinine Ratio 20 Ratio (12-20); Bilirubin,Total < 0.2 mg/dL (0.3-1.2); Blood Urea Nitrogen 32 mg/dL (9-23); Calcium (Corrected) 9.2 mg/dL (8.5-10.1); Carbon Dioxide 23.7 mMol/L (20.0-31.0); Chloride 98 mMol/L (98-107); Creatinine (Component) 1.6 mg/dL (0.6-1.3); Estimated Creatinine Clearance 39.4 mL/min (>60); Globulin 2.9 gm/dL (2.3-3.5); Osmolality,Calculated 295 (275-295); Potassium 5.2 mMol/L (3.4-5.1); Sodium 133 mMol/L (136-145); Total Protein 6.7 gm/dL (5.7-8.2); eGFR 48 See Note
[2024-08-12 19:17] LABS: Glucose 489 mg/dL (74-106)
[2024-08-12] MEDS: INSULIN HUM REGULAR 1 UNIT/0.01 ML (PER UNIT) 10 UNIT IV (19:39)
[2024-08-12 20:33] LABS: Hematocrit 18.3 % (41.0-53.0); Hemoglobin 5.7 g/dL (13.5-16.0)
[2024-08-12 21:28] LABS: Partial Thromboplastin Time 24.5 Seconds (22.0-36.0); Prothrombin Time 11.2 Seconds (9.0-12.2)
--- NOTE | 2024-08-12 21:45 | PC.NURSE ---
PT CONTINUES TO CLAMP HIS IV, SPOKE TO PT STATES HE JUST WANTS SOME ATTENTION. SPOKE TO PT THAT HE WAS DELAYING HIS CARE.
[2024-08-12] MEDS: LORazepam 2 MG/ML VIAL 1 MG IVP ×2 (21:50→23:10)
--- NOTE | 2024-08-12 22:36 | ESHP_ITS ---
<Statement entered by Emeterio Schwartz MD - 08/23/24 14:56> I reviewed above note and agree with findings and plans. I have also personally examined the patient with medicine team and went over assessment and plan with medical team including human resource internship and resident physician. Documentation for date of: 08/12/24 [facility] History of Present Illness Chief complaint: Abdominal pain History of present illness: History was limited as patient did not want to participate much in history taking gaps were filled with chart review 64-year-old male active smoker with past medical history of diabetes mellitus, hypertension, diabetic neuropathy, dementia, hepatitis C, alcohol use disorder who presented to the ED due to abdominal pain. Patient states he has been having 2 to 3 days onset of abdominal pain specifically in the left lower quadrant with associated chills. Patient also states that he has been having dark tarry stools that started about 2 days ago. He also endorses 1 episode of bloody vomiting. He also states that he drinks about a pint and a half of liquor every day. Rest of the history is limited as patient states he feels anxious states he sees a little girl in the corner of the room crying for her parents however nobody else is present in the room. At this time patient denies chest pain, shortness of breath, nausea, vomiting, headache, blurry vision, recent travel, sick contacts. ED course: ED vitals: BP 144/76, HR 98, saturating 87% on room air ED labs: Hemoglobin 5.7, sodium 133, potassium 5.2, BUN 32, creatinine 1.6, EGFR 48, glucose 489, chest x-ray shows bronchitis pattern, EKG shows sinus rhythm PMHx: as above SxHx: Denied Social Hx: Smokes 1 pack of cigarettes a day, drinks 1 pint and a half of alcohol, denies illicit substances including THC Allergies: No known allergies Review of Systems Review of Systems Systems Reviewed: All systems reviewed, normal except as documented Narrative Review of Systems: All 12 systems reviewed and found negative unless otherwise stated in the HPI. Exam Vital Signs Temp Pulse Resp BP Pulse Ox O2 Del Method 98.0 F 97 18 136/78 H 99 Room Air 08/12/24 22:08/12/24 22:08/12/24 22:08/12/24 22:08/12/24 22:08/12/24 19:42 Narrative Exam Physical Exam GENERAL: NAD, AAOx3, pale HEENT: Moist mucosa. Eyes open, symmetrical, & clear CARDIO: Heart RRR, no obvious murmurs PULM: No noted coughing/dyspnea CTA B/L, no R/W/R GI: Abdomen soft, nondistended, no pain on palpation. BS appreciated SKIN/MSK/EXT: Tremors in bilateral upper extremities, no pain on palpation. Pedal pulses present B/L NEURO: AAOx3, no focal neuro deficits, able to move all 4 extremities Results: Labs 08/12/24 18:32 08/12/24 17:38 Labs: Short CBC 08/12/24 08/12/24 Range/Units 17:37 18:32 WBC 6.0 (3.8-10.6) Thou/mm3 Hgb 6.7 L* 5.7 L* (13.5-16.0) g/dL Hct 21.8 L* 18.3 L* (41.0-53.0) % Plt Count 190 (140-440) Thou/mm3 BMP 08/12/24 17:38 Sodium 133 L Potassium 5.2 H Chloride 98 Carbon Dioxide 23.7 BUN 32 H Creatinine 1.6 H Glucose 489 H* Calcium 9.0 Liver Function 08/12/24 Range/Units 17:38 Total Bilirubin < 0.2 L (0.3-1.2) mg/dL ALT 14 (10-49) U/L Alkaline Phosphatase 74 (46-116) U/L Albumin 3.8 (3.4-4.8) gm/dL Quality Measures Quality Measures none Medications Home Medications and Allergies Home Medications ?Medication ?Instructions ?Recorded ?Confirmed ?Type acetaminophen 325 mg tablet 650 mg PO Q6H PRN Mild Yaron n (Scale 01/31/23 06/01/24 History Score 1-4) acetaminophen 650 mg rectal 650 mg MI Q6H PRN Mild Yaron n (Scale 01/31/23 06/01/24 History suppository Score 1-4) amino acids-protein hydrolysate 15 1 ea PO BID 3 06/01/24 History gram-100 kcal/30 mL oral liquid pkt (Pro-Stat Sugar Free) ascorbic acid (vitamin C) 500 mg 500 mg PO BID 3 06/01/24 History tablet (Vitamin C) bisacodyl 10 mg rectal suppository 10 mg MI Q72H PRN C onstipation 01/31/23 06/01/24 History docusate sodium 100 mg capsule 100 mg PO QDAY 01/31/23 06/01/24 History gabapentin 400 mg capsule 400 mg PO Q8H 01/31/2306/01 History insulin regular human 100 unit/mL See Rx Instructions .Route .COMPLEX 01/31/23 06/01/24 History injection solution (Humulin R Regular U-100 Insulin) magnesium hydroxide 400 mg/5 mL 30 ml PO Q48H PRN Cons tipation 01/31/23 06/01/24 History oral suspension (Milk of Magnesia) multivitamin with iron-mineral 1 tab PO QDAY 01/31/23 06/01/24 History ondansetron 4 mg disintegrating 4 mg PO Q6H PRN NAUSEA OR VOMITING 01/31/23 06/01/24 History tablet scopolamine base 1 mg over 3 days 1 mg topical Q72H 06/01/24 History transdermal patch (Transderm-Scop) sennosides 8.6 mg-docusate sodium 1 tab PO BID 3 06/01/24 History 50 mg tablet (Senna with Docusate Sodium) trazodone 100 mg tablet 100 mg PO HS 01/31/23 History Allergies Allergy/AdvReac Type Severity Reaction Status Date / Time No Known Allergies Allergy Verified 08/12/24 15:59 Visit Medications Acetaminophen (Acetaminophen 325 Mg Tablet) 650 mg PO Q6H PRN PRN Reason: Fever >99.5 Stop: 09/11/24 22:26 Acetaminophen (Acetaminophen 325 Mg Tablet) 1,000 mg PO Q6H PRN PRN Reason: PAIN SCALE 1-3 (mild Stop: 09/11/24 22:26 Dextrose (Dextrose 50%-Water Inj 50 Ml Syringe) 25 ml IV Q15MIN PRN PRN Reason: BG 50-70 responsive npo pt Stop: 09/11/24 22:31 Dextrose (Dextrose 50%-Water Inj 50 Ml Syringe) 50 ml IV Q15MIN PRN PRN Reason: BG <50 OR BG <70 & pt unresponsive Stop: 09/11/24 22:31 Glucagon (Glucagon Inj 1 Mg Vial) 1 mg IM Q15MIN PRN PRN Reason: BG <70, and no IV access Sodium Chloride (Ns) 1,000 mls @ 100 mls/hr IV .Q10H ONE Stop: 08/13/24 03:36 Last Admin: 08/12/24 18:29 Dose: 100 mls/hr Pantoprazole Sodium (Protonix/Ns 80mg Iv Premix) 80 mg in 100 mls @ 10 mls/hr IV X1 ONE Stop: 08/13/24 08:05 Insulin Human Lispro (Insulin Lispro (Admelog) 1 Unit/0.01 Ml Unit) 0 unit SC AC LISA; Protocol Stop: 09/12/24 07:29 Ondansetron HCl (Ondansetron Inj 2 Mg/Ml Inj 2 Ml) 4 mg IVP Q6H PRN; Protocol PRN Reason: NAUSEA OR VOMITING Stop: 09/11/24 22:26 Pantoprazole Sodium (Pantoprazole Inj 40 Mg Vial) 40 mg IVP Q12HR [facility] Stop: 09/12/24 08:59 Sennosides (Senna Tablet) 1 tab PO QDAY LISA; Protocol Stop: 09/12/24 08:59 Discontinued Medications Acetaminophen (Acetaminophen 325 Mg Tablet) 650 mg PO X1 ONE Stop: 08/12/24 17:38 Last Admin: 08/12/24 18:27 Dose: 650 mg Diphenhydramine HCl (Diphenhydramine 25 Mg Capsule) 25 mg PO X1 ONE Stop: 08/12/24 17:38 Last Admin: 08/12/24 18:28 Dose: 25 mg Insulin Human Regular (Insulin Hum Regular 1 Unit/0.01 Ml (Per Unit)) 10 unit IV X1 ONE Stop: 08/12/24 19:20 Last Admin: 08/12/24 19:39 Dose: 10 unit Lorazepam (Lorazepam 2 Mg/Ml Vial) 1 mg IVP X1 ONE Stop: 08/12/24 21:46 Last Admin: 08/12/24 21:50 Dose: 1 mg Pantoprazole Sodium (Pantoprazole Inj 40 Mg Vial) 80 mg IVP X1 ONE Stop: 08/12/24 22:06 Sodium Polystyrene Sulfonate (Sod Polystyrene Sulfon Susp 15 Gm/60 Ml Btl) 30 gm PO X1 ONE Stop: 08/12/24 22:33 Assessment & Plan Plan 64-year-old male active smoker with past medical history of diabetes mellitus, hypertension, diabetic neuropathy, dementia, hepatitis C, alcohol use disorder who presented to the ED due to abdominal pain, dark tarry stools, 1 episode of hematemesis. Patient will be admitted for GI bleed workup. #GI bleed upper versus lower Patient presented with dark tarry stools as well as 1 episode of hematemesis per the patient ED consulted GI recommended admission for endoscopic evaluation Hemoglobin on presentation was 5.7 Rockall score: 2; 5.6% mortality prior to endoscopy [place]-Blatchford Bleeding Score: 13 ? Transfused 2 units PRBCs ? Ordered 2 additional PRBCs ? Monitor H&H ? Pantoprazole 40 mg every 12 ? Octreotide drip ? GI consulted, appreciate recs #Acute Kidney injury Baseline creatinine around 0.9 currently 1.6, likely prerenal azotemia in the setting of hypovolemia ? on IVF ? Avoid nephrotoxins ? Renally dose medications #Hyperkalemia Presented with potassium of 5.2, in the ED patient received 10 units of regular insulin ? Follow CMP #Alcohol use disorder Per patient's history he states he drinks about a pint and a half of hard liquor In the middle of history taking patient was complaining of anxiety, shakiness and was seeing a little girl in the corner of the room crying for her parents however nobody was present in the room Patient is AO x 3 with GCS of 15 At the time of my evaluation CIWA: 11 ? Folic acid ? Thiamine ? CIWA protocol #Hypertension Blood pressure soft at this time we will monitor for now ? Consider resuming antihypertensives at a later time #Diabetes mellitus type 2 Last A1c: 7.5 (May 2024) ? SSI ? Hypoglycemia protocol in place Health Maintenance: Disposition: Telemetry, pending GI workup, on CIWA Fluids: NS Feeding: N.p.o. after midnight Thrombo prophylaxis: SCDs Gastric Ulcer prophylaxis: Pantoprazole CODE STATUS: Full code Case discussed with my attending Dr. Lana Casillas MD PGY-1
--- NOTE | 2024-08-12 22:51 | PD.IMCONS ---
HPI Data of Consult Primary Care Provider: Physician No Primary/Family Consult Narrative Reason for consult: H/H 5.7/18.3 History of present illness: 64 years old male presented to the hospital with weakness dark melanotic stools and 1 episode of hematemesis Initial hemoglobin hematocrit 6.7 and 21.8 which went down to 5.7 and 18.3 Since then patient has been To the hemoglobin is now around 9.0 Patient did have a elevated BUN/creatinine of 32 and 1.6 which has come down to 29 and 1.2 Patient drinks about a pint of alcohol every day On 06/02/2024 patient had undergone upper endoscopy which showed multiple linear esophageal ulcers and gastritis On 06/05/2024 patient underwent colonoscopy which showed internal hemorrhoids and diverticulosis which was moderate in the sigmoid colon and descending colon Patient does have a history of iron deficiency anemia hepatitis C and alcohol induced liver disease essential hypertension diabetes mellitus type 2 cc:: cc: Review of Systems Review of Systems Systems Reviewed: All systems reviewed, normal except as documented Past Medical History Surgical History OTHER SURGICAL HX: As in history of present illness Meds Home Medications and Allergies Home Medications ?Medication ?Instructions ?Recorded ?Confirmed ?Type acetaminophen 325 mg tablet 650 mg PO Q6H PRN Mild Pain (Scale 01/31/23 08/13/24 History Score 1-4) ascorbic acid (vitamin C) 500 mg 500 mg PO BID 01/31/23 08/13/24 History tablet (Vitamin C) bisacodyl 10 mg rectal suppository 10 mg TX Q72H PRN Constipation 01/31/23 08/13/24 History docusate sodium 100 mg capsule 100 mg PO QDAY 01/31/23 08/13/24 History gabapentin 400 mg capsule 400 mg PO Q8H 01/31/23 08/13/24 History magnesium hydroxide 400 mg/5 mL 30 ml PO Q72H PRN Constipation 01/31/23 08/13/24 History oral suspension (Milk of Magnesia) ondansetron 4 mg disintegrating 4 mg PO Q6H PRN NAUSEA OR VOMITING 01/31/23 08/13/24 History tablet scopolamine base 1 mg over 3 days 1 mg topical Q72H 01/31/23 08/13/24 History transdermal patch (Transderm-Scop) sennosides 8.6 mg-docusate sodium 1 tab PO BID 01/31/23 08/13/24 History 50 mg tablet (Senna with Docusate Sodium) trazodone 100 mg tablet 50 mg PO DAILY 01/31/23 08/13/24 History ferrous sulfate 325 mg (65 mg 325 mg PO QDAY 08/13/24 08/13/24 History iron) tablet (Feosol) insulin glargine 100 unit/mL (3 40 unit subcut QDAY 08/13/24 08/13/24 History mL) subcutaneous pen (Lantus Solostar U-100 Insulin) metformin 500 mg tablet 1,000 mg PO BID 08/13/24 08/13/24 History olanzapine 15 mg tablet 10 mg PO HS 08/13/24 08/13/24 History psyllium husk 3.4 gram/5.4 gram 1 tsp PO QDAY 08/13/24 08/13/24 History oral powder (Metamucil) Allergies Allergy/AdvReac Type Severity Reaction Status Date / Time No Known Allergies Allergy Verified 08/12/24 15:59 Exam Vital Signs Temp Pulse Resp BP Pulse Ox O2 Del Method 98.3 F 92 18 128/76 98 Room Air 08/12/24 22:37 08/12/24 22:37 08/12/24 22:37 08/12/24 22:37 08/12/24 22:37 08/12/24 19:42 Constitutional Comments: Chronically ill-appearing Routine Respiratory Exam Comments: Normal to auscultation Routine Abdominal Exam Comments: Soft nontender Results Labs 08/13/24 04:41 08/13/24 04:41 Labs: Short CBC 08/12/24 08/12/24 Range/Units 17:37 18:32 WBC 6.0 (3.8-10.6) Thou/mm3 Hgb 6.7 L* 5.7 L* (13.5-16.0) g/dL Hct 21.8 L* 18.3 L* (41.0-53.0) % Plt Count 190 (140-440) Thou/mm3 [facility] 08/12/24 17:38 Sodium 133 L Potassium 5.2 H Chloride 98 Carbon Dioxide 23.7 BUN 32 H Creatinine 1.6 H Glucose 489 H* Calcium 9.0 Liver Function 08/12/24 Range/Units 17:38 Total Bilirubin < 0.2 L (0.3-1.2) mg/dL ALT 14 (10-49) U/L Alkaline Phosphatase 74 (46-116) U/L Albumin 3.8 (3.4-4.8) gm/dL Assessment and Plan Additional Assessment & Plan Additional Plan: # Acute upper GI bleed in the form of hematemesis and melena # Acute posthemorrhagic anemia requiring blood transfusion Plan IV Protonix Octreotide infusion Consent obtained for fiberoptic esophagogastroduodenoscopy with possible therapeutic intervention possible biopsy under intravenous moderate sedation from the and the family and they will proceed with the procedure other medical problems include Chronic liver disease secondary to alcohol and hepatitis C Essential hypertension Diabetes mellitus type 2 Thank you very much for the opportunity to participate in care of this patient
[2024-08-12] MEDS: THIAMINE 100 MG TABLET PO (23:06)
[2024-08-12] MEDS: FOLIC ACID 1 MG TABLET PO (23:06)
[2024-08-12] MEDS: PANTOPRAZOLE INJ 40 MG VIAL 80 MG IVP (23:07)
[2024-08-12] MEDS: PANTOPRAZOLE/NS 80MG IV PREMIX 80 MG/100 ML BAG 10 MG IV (23:10)
[2024-08-12] MEDS: OCTREOTIDE ACET INJ 1,000 MCG in SODIUM CHLORIDE 0.9% 100 ML 5.1 MCG IV (23:11)
[2024-08-13] VITALS (18 sets, daily range): BP systolic 139–188; BP diastolic 87–107; PULSE 78–104; RESP 15–20; TEMP 36.1–37; O2SAT 96–100; BMI 21.4
[2024-08-13] MEDS: LORazepam 0.5 MG TABLET PO ×2 (00:23→20:49)
[2024-08-13] MEDS: LORazepam 2 MG/ML VIAL IVP (01:38)
[2024-08-13 02:46] LABS: Path Review Blood Smear Sent to Pathologist
[2024-08-13 05:03] LABS: Basophils # (Auto) 0.1 Thou/mm3 (0.0-0.2); Basophils % (Auto) 1 % (0-2.5); Eosinophils # (Auto) 0.3 Thou/mm3 (0.0-0.5); Eosinophils % (Auto) 5 % (0-10); Immature Granulocytes % (Auto) 1 % (0-0); Immature Granulocytes Auto 0.03 Thou/mm3 (0.00-0.00); Lymphocytes # (Auto) 1.5 Thou/mm3 (1.0-4.8); Lymphocytes % (Auto) 24 % (10-50); Mean Corpuscular Volume 68 fL (80-100); Monocytes # (Auto) 0.4 Thou/mm3 (0.0-0.8); Monocytes % (Auto) 6 % (0-12); Neutrophils # (Auto) 3.9 Thou/mm3 (1.8-7.7); Neutrophils % (Auto) 63 % (37-80); Nucleated Red Blood Cell % 0 /100 WBC (0); Platelet Count 181 Thou/mm3 (140-440); RDW Standard Deviation 57.6 fL (35.1-43.9); Red Blood Count 4.29 Miln/mm3 (4.50-5.90); White Blood Count 6.1 Thou/mm3 (3.8-10.6)
[2024-08-13 05:21] LABS: Glucose Estimated Average 171 mg/dL (80-131); Hemoglobin A1C 7.6 % Hgb (4.8-6.0)
--- NOTE | 2024-08-13 05:26 | PC.NURSE ---
complete linen change. repsotition. lenard care and brief change
[2024-08-13 05:32] LABS: Alanine Aminotransferase 13 U/L (10-49); Albumin, Serum 3.6 gm/dL (3.4-4.8); Albumin/Globulin Ratio 1.2 (1.2-2.2); Alkaline Phosphatase 72 U/L (46-116); Anion Gap 7 (7-16); BUN/Creatinine Ratio 24 Ratio (12-20); Bilirubin,Total 1.1 mg/dL (0.3-1.2); Blood Urea Nitrogen 29 mg/dL (9-23); Calcium 8.4 mg/dL (8.3-10.6); Calcium (Corrected) 8.7 mg/dL (8.5-10.1); Carbon Dioxide 24.6 mMol/L (20.0-31.0); Chloride 107 mMol/L (98-107); Creatinine (Component) 1.2 mg/dL (0.6-1.3); Estimated Creatinine Clearance 52.6 mL/min (>60); Globulin 2.9 gm/dL (2.3-3.5); Glucose 196 mg/dL (74-106); Magnesium 1.5 mg/dL (1.6-2.6); Osmolality,Calculated 288 (275-295); Phosphorous 3.3 mg/dL (2.4-5.1); Sodium 139 mMol/L (136-145); Total Protein 6.5 gm/dL (5.7-8.2); eGFR > 60 See Note
--- NOTE | 2024-08-13 05:35 | PC.NURSE ---
REPORT CALLED TO HAMMAD MITCHELL AT THIS TIME.
[2024-08-13] MEDS: INSULIN LISPRO (AdmeLOG) 1 UNIT/0.01 ML UNIT SC ×2 (06:06→23:52)
[2024-08-13] MEDS: Magnesium Sulfate 4 GM Ivpb 4 GM/50 ML BAG IV (09:12)
[2024-08-13] MEDS: SENNA TABLET 1 TAB PO (09:13)
[2024-08-13] MEDS: PANTOPRAZOLE INJ 40 MG VIAL IVP ×2 (09:13→20:14)
[2024-08-13] MEDS: THIAMINE 100 MG TABLET PO ×2 (09:13→20:14)
[2024-08-13] MEDS: FOLIC ACID 1 MG TABLET PO ×2 (09:13→20:14)
[2024-08-13] MEDS: LOSARTAN POTASSIUM 25 MG TABLET PO (09:15)
[2024-08-13] MEDS: INSULIN GLARGINE (Lantus) 5 UNIT/0.05 ML (PER 5 UNITS) 10 UNIT SC (10:01)
[2024-08-13] MEDS: cefTRIAXone/D5w 1gm IV premix 1 GM/50 ML BAG IV (10:01)
[2024-08-13] MEDS: chlordiazePOXIDE HCl 25 MG CAPSULE 50 MG PO ×2 (12:45→23:52)
--- NOTE | 2024-08-13 12:53 | ESPR_ITS ---
Documentation for date of: 08/13/24 Subjective Subjective Interval history: Patient is an overnight admit. Patient seen and examined at bedside this morning. Patient does not have any complaints. Labs are reviewed. Patient is status post 2 units of transfusion patient denies any any dizziness or shortness of breath. Patient is pending EGD. Exam Vital Signs Temp Pulse Resp BP Pulse Ox O2 Del Method 97.0 F 82 19 151/87 H 96 Room Air 08/13/24 11:44 08/13/24 11:44 08/13/24 11:44 08/13/24 11:44 08/13/24 11:44 08/13/24 11:44 Narrative Exam GENERAL: A&Ox3 . Awake, Not in acute distress NEURO: no focal neurological deficits HEENT: Atraumatic, Normocephalic. mucous membranes moist. Eyes open, symmetrical, & clear HEART: Normal Heart Sounds LUNGS: Clear to auscultation with no wheezing or crackles. ABDOMEN: soft, non-distended, non-tender, bowel sounds heard, no guarding or rebound tenderness SKIN: No Rash or ecchymoses EXTREMITIES: No edema, tenderness, able to move all 4 extremities, pedal pulses palpated Objective Labs 08/14/24 05:00 08/14/24 05:00 Labs: Laboratory Results - last 24 hr 08/12/24 08/12/24 08/12/24 17:37 17:38 18:32 WBC 6.0 RBC 3.72 L Hgb 6.7 L* 5.7 L* Hct 21.8 L* 18.3 L* MCV 59 L MCH 18.0 L MCHC 30.7 L RDW Std Deviation 37.8 Plt Count 190 Neut % (Auto) 73 Lymph % (Auto) 16 [place] % (Auto) 7 Eos % (Auto) 3 Baso % (Auto) 1 Neut # (Auto) 4.4 Lymph # (Auto) 1.0 [place] # (Auto) 0.4 Eos # (Auto) 0.2 Baso # (Auto) 0.0 Immature Gran # (Auto) 0.01 H Absolute Nucleated RBC 0.00 Immature Gran % 0 Nucleated RBC % 0 Smear Path Review Sent to Pathologist PT 11.2 INR 1.0 APTT 24.5 Sodium 133 L Potassium 5.2 H Chloride 98 Carbon Dioxide 23.7 Anion Gap 11 BUN 32 H Creatinine 1.6 H Estim Creat Clear Calc 39.4 L eGFR 48 L BUN/Creatinine Ratio 20 Glucose 489 H* Estimated Ave Glu mg/dL Hemoglobin A1c Calculated Osmolality 295 Calcium 9.0 Corrected Calcium 9.2 Phosphorus Magnesium Total Bilirubin < 0.2 L ALT 14 Alkaline Phosphatase 74 Total Protein 6.7 Albumin 3.8 Globulin 2.9 Albumin/Globulin Ratio 1.3 Blood Type A Positive Antibody Screen NEGATIVE Crossmatch See Detail Blood Bank Wristband ID Yes 08/13/24 04:41 WBC 6.1 RBC 4.29 L Hgb 9.0 L D Hct 29.0 L D MCV 68 L MCH 21.0 L MCHC 31.0 RDW Std Deviation 57.6 H Plt Count 181 Neut % (Auto) 63 Lymph % (Auto) 24 [place] % (Auto) 6 Eos % (Auto) 5 Baso % (Auto) 1 Neut # (Auto) 3.9 Lymph # (Auto) 1.5 [place] # (Auto) 0.4 Eos # (Auto) 0.3 Baso # (Auto) 0.1 Immature Gran # (Auto) 0.03 H Absolute Nucleated RBC 0.00 Immature Gran % 1 H Nucleated RBC % 0 Smear Path Review PT INR APTT Sodium 139 Potassium 5.0 Chloride 107 Carbon Dioxide 24.6 Anion Gap 7 BUN 29 H Creatinine 1.2 Estim Creat Clear Calc 52.6 L eGFR > 60 BUN/Creatinine Ratio 24 H Glucose [address] Glu mg/dL 171 H Hemoglobin A1c 7.6 H Calculated Osmolality 288 Calcium 8.4 Corrected Calcium 8.7 Phosphorus 3.3 Magnesium 1.5 L Total Bilirubin 1.1 D ALT 13 Alkaline Phosphatase 72 Total Protein 6.5 Albumin 3.6 Globulin 2.9 Albumin/Globulin Ratio 1.2 Blood Type Antibody Screen Crossmatch Blood Bank Wristband ID Quality Measures Quality Measures none Assessment & Plan Assessment Current Active Medications: Generic Name Dose Route Start Last Admin Trade Name Freq PRN Reason Stop Dose Admin Acetaminophen 650 mg 08/12/24 22:27 Acetaminophen 325 Mg Tablet PO 09/11/24 22:26 Q6H PRN Fever >99.5 Acetaminophen 1,000 mg 08/13/24 08:10 Acetaminophen 500 Mg Tablet PO 09/11/24 22:26 Q6H PRN PAIN SCALE 1-3 (mild Chlordiazepoxide HCl 50 mg 08/13/24 12:00 08/13/24 12:45 Chlordiazepoxide Hcl 25 Mg Capsule PO 08/18/24 11:59 50 mg Q6HR LISA Administration Dextrose 25 ml 08/12/24 22:32 Dextrose 50%-Water Inj 50 Ml Syringe IV 09/11/24 22:31 Q15MIN PRN BG 50-70 responsive npo pt Dextrose 50 ml 08/12/24 22:32 Dextrose 50%-Water Inj 50 Ml Syringe IV 09/11/24 22:31 Q15MIN PRN BG <50 OR BG <70 & pt unresponsive Folic Acid 1 mg 08/12/24 23:00 08/13/24 09:13 Folic Acid 1 Mg Tablet PO 08/17/24 22:59 1 mg BID LISA Administration Glucagon 1 mg 08/12/24 22:32 Glucagon Inj 1 Mg Vial IM Q15MIN PRN BG <70, and no IV access Octreotide Acetate 1,000 mcg/ 102 mls @ 5.1 mls/hr 08/13/24 19:00 Sodium Chloride IV 09/12/24 18:59 .Q20H LISA Protocol 50 MCG/HR Octreotide Acetate 1,000 mcg/ 102 mls @ 5.1 mls/hr 08/12/24 23:00 08/12/24 23:11 Sodium Chloride IV 08/13/24 18:59 50 mcg/hr .Q20H ONE 5.1 mls/hr Administration Protocol 50 MCG/HR Ceftriaxone Sodium/Dextrose 1 gm in 50 mls @ 100 mls/hr 08/13/24 09:19 08/13/24 10:01 Rocephin/D5w 1gm Iv Premix IV 08/20/24 09:18 100 mls/hr QDAY LISA Administration Insulin Glargine 10 unit 08/13/24 09:30 08/13/24 10:01 Insulin Glargine (Lantus) 5 Unit/0.05 Ml (Per 5 Units) SC 09/12/24 09:29 10 unit QDAY LISA Administration Insulin Human Lispro 0 unit 08/13/24 09:24 08/13/24 12:42 Insulin Lispro (Admelog) 1 Unit/0.01 Ml Unit SC 09/12/24 05:59 Not Given Q6HR LISA Protocol Lorazepam 0.5 mg 08/12/24 22:52 08/13/24 00:23 Lorazepam 0.5 Mg Tablet PO 08/17/24 22:51 0.5 mg Q4HR PRN Administration CIWA Score 2-6 Lorazepam 1 mg 08/12/24 22:52 Lorazepam 2 Mg/Ml Vial IV 08/17/24 22:51 Q2HR PRN CIWA SCORE 14-19 Lorazepam 2 mg 08/12/24 22:52 Lorazepam 2 Mg/Ml Vial IV 08/17/24 22:51 Q2HR PRN CIWA SCORE 20-25 Lorazepam 0.5 mg 08/13/24 09:22 Lorazepam 2 Mg/Ml Vial IV 08/17/24 22:51 Q2HR PRN CIWA SCORE 7-13 Losartan Potassium 25 mg 08/13/24 09:00 08/13/24 09:15 Losartan Potassium 25 Mg Tablet PO 09/12/24 08:59 25 mg QDAY LISA Administration Ondansetron HCl 4 mg 08/12/24 22:27 Ondansetron Inj 2 Mg/Ml Inj 2 Ml IVP 09/11/24 22:26 Q6H PRN NAUSEA OR VOMITING Protocol Pantoprazole Sodium 40 mg 08/13/24 09:00 08/13/24 09:13 Pantoprazole Inj 40 Mg Vial IVP 09/12/24 08:59 40 mg Q12HR LISA Administration Sennosides 1 tab 08/13/24 09:00 08/13/24 09:13 Senna Tablet PO 09/12/24 08:59 1 tab QDAY LISA Administration Protocol Thiamine HCl 100 mg 08/12/24 23:00 08/13/24 09:13 Thiamine 100 Mg Tablet PO 08/17/24 22:59 100 mg BID LISA Administration Plan Mr. Handy is a 64-year-old male active smoker with past medical history of diabetes mellitus, hypertension, diabetic neuropathy, dementia, hepatitis C, alcohol use disorder who presented to the ED due to abdominal pain, dark tarry stools, 1 episode of hematemesis. Patient will be admitted for GI bleed workup. #Acute blood loss Anemia #GI bleed, likely upper, in the setting of #Alcohol use disorder Patient presented with dark tarry stools as well as 1 episode of hematemesis ED consulted GI recommended admission for endoscopic evaluation Hemoglobin on presentation was 5.7 Rockall score: 2; 5.6% mortality prior to endoscopy [place]-Blatchford Bleeding Score: 13 ? Transfused 2 units PRBCsn post transufusion H&H Hgb 9.0 and Hct 29.0 ? Ordered 2 additional PRBCs (not transfused) ? Monitor H&H ? Pantoprazole 40 mg every 12 ? Octreotide drip -Rocephin added for SBP ? GI consulted, appreciate recs -Endoscopy pending #Acute Kidney injury- improving Baseline creatinine around 0.9 currently 1.6, likely prerenal azotemia in the setting of hypovolemia ? on IVF ? Avoid nephrotoxins ? Renally dose medications #Hyperkalemia, resolved Presented with potassium of 5.2, in the ED patient received 10 units of regular insulin ? Follow CMP #Alcohol use disorder Per patient's history he states he drinks about a pint and a half of hard liquor In the middle of history taking patient was complaining of anxiety, shakiness and was seeing a little girl in the corner of the room crying for her parents however nobody was present in the room Patient is AO x 3 with GCS of 15 At the time of my evaluation CIWA: 11 ? Folic acid ? Thiamine - Librium Q6H daily ? CIWA protocol #Primary Hypertension Blood pressure soft at this time we will monitor for now ? Consider resuming antihypertensives at a later time #Insulin-dependent type 2 Diabetes mellitus Last A1c: 7.5 (May 2024) ? SSI - Glargine 10 daily ? Hypoglycemia protocol in place #Heptatitis C -Hepatitis panel from 05/28 is positive for Hep C -Pt has not received any treatment -Viral load ordered Health Maintenance: Disposition: Telemetry, pending GI workup, on CIWA Fluids: NS Feeding: N.p.o. after midnight Thrombo prophylaxis: SCDs Gastric Ulcer prophylaxis: Pantoprazole CODE STATUS: Full code Assessment and plan discussed with my attending physician Dr. Fortino Coreas (PGY-1)- Internal medicine resident Attending Provider Attestation/Addendum I attest that I was physically present for the evaluation, physical examination, lab and imaging review of the patient with the residents. I discussed the case with the residents and agree with the findings and plans of care as documented above. Kareem Freitas MD
--- NOTE | 2024-08-13 15:15 | PC.SS ---
Pt is confused. SS spoke to by phone regarding patient's d/c plan. Pt has dementia. Pt is prison resident at [facility]. , Ivonne Handy is patient's medical decision maker. SS also spoke to Tonie from [facility] who explained pt is wheelchair bound. Pt requires assistance with ADLs. Per Tonie, pt does not require insurance authorization or PT evaluation to return due to being prison placement. Patient's PCP is Dr. Ramsey. Pt will return to [facility] upon dc. DC Plan: Return to [facility] Next of Kin: Ivonne Handy, , phone# [phone] PCP: Dr. Ramsey
[2024-08-13 18:49] LABS: Collection Type, Urine Clean Catch; Squamous Epithelial Cell,Urine 0 /hpf (0-5)
[2024-08-13 19:32] LABS: Bilirubin,Urine Negative (Negative); Blood,Urine 1+ (Negative); Clarity,Urine Clear (Clear/Hazy); Color,Urine Lt-Yellow (Lt Yel-Yel); Glucose, Urine 1+ (Negative); Ketones,Urine Negative (Negative); Leukocyte Esterase,Urine Negative (Negative); Nitrite,Urine Negative (Negative); Protein,Urine 2+ (Neg - Trace); RBC,Urine 2 /hpf (0-3); Specific Gravity,Urine 1.013 (1.001-1.035); Urobilinogen,Urine Negative mg/dL (0.0-1.0); WBC,Urine 1 /hpf (0-5)
[2024-08-13] MEDS: OCTREOTIDE ACET INJ 1,000 MCG in SODIUM CHLORIDE 0.9% 100 ML 5.1 MCG IV (19:38)
[2024-08-13 23:06] LABS: INR 1.1 (0.9-1.3); Prothrombin Time 11.9 Seconds (9.0-12.2)
[2024-08-14] VITALS (9 sets, daily range): BP systolic 147–175; BP diastolic 84–103; PULSE 78–90; RESP 12–97; TEMP 36.3–36.6; O2SAT 96–99; BMI 21.4
[2024-08-14] MEDS: LORazepam 2 MG/ML VIAL 0.5 MG IV ×2 (01:28→05:56)
[2024-08-14] MEDS: chlordiazePOXIDE HCl 25 MG CAPSULE 50 MG PO (05:56)
[2024-08-14 06:05] LABS: Basophils # (Auto) 0.1 Thou/mm3 (0.0-0.2); Basophils % (Auto) 1 % (0-2.5); Eosinophils # (Auto) 0.6 Thou/mm3 (0.0-0.5); Eosinophils % (Auto) 6 % (0-10); Hematocrit 28.5 % (41.0-53.0); Hemoglobin 9.3 g/dL (13.5-16.0); Immature Granulocytes % (Auto) 0 % (0-0); Immature Granulocytes Auto 0.03 Thou/mm3 (0.00-0.00); Lymphocytes # (Auto) 1.1 Thou/mm3 (1.0-4.8); Lymphocytes % (Auto) 13 % (10-50); Mean Corpuscular HGB Conc 32.6 g/dl (31.0-37.0); Mean Corpuscular Hemoglobin 21.1 pg (25.0-35.0); Mean Corpuscular Volume 65 fL (80-100); Monocytes # (Auto) 0.5 Thou/mm3 (0.0-0.8); Monocytes % (Auto) 6 % (0-12); Neutrophils # (Auto) 6.8 Thou/mm3 (1.8-7.7); Neutrophils % (Auto) 75 % (37-80); Nucleated Red Blood Cell % 0 /100 WBC (0); Platelet Count 189 Thou/mm3 (140-440); RDW Standard Deviation 53.4 fL (35.1-43.9); Red Blood Count 4.41 Miln/mm3 (4.50-5.90); White Blood Count 9.1 Thou/mm3 (3.8-10.6)
[2024-08-14 06:26] LABS: Alanine Aminotransferase 11 U/L (10-49); Albumin, Serum 3.5 gm/dL (3.4-4.8); Albumin/Globulin Ratio 1.2 (1.2-2.2); Alkaline Phosphatase 81 U/L (46-116); Anion Gap 12 (7-16); BUN/Creatinine Ratio 17 Ratio (12-20); Bilirubin,Total 0.6 mg/dL (0.3-1.2); Blood Urea Nitrogen 19 mg/dL (9-23); Calcium 8.4 mg/dL (8.3-10.6); Calcium (Corrected) 8.8 mg/dL (8.5-10.1); Carbon Dioxide 24.5 mMol/L (20.0-31.0); Chloride 103 mMol/L (98-107); Creatinine (Component) 1.1 mg/dL (0.6-1.3); Estimated Creatinine Clearance 58.6 mL/min (>60); Glucose 158 mg/dL (74-106); Magnesium 1.7 mg/dL (1.6-2.6); Osmolality,Calculated 282 (275-295); Phosphorous 3.4 mg/dL (2.4-5.1); Potassium 4.4 mMol/L (3.4-5.1); Sodium 139 mMol/L (136-145); Total Protein 6.5 gm/dL (5.7-8.2); eGFR > 60 See Note
[2024-08-14] MEDS: LOSARTAN POTASSIUM 25 MG TABLET PO (09:40)
[2024-08-14] MEDS: PANTOPRAZOLE INJ 40 MG VIAL IVP (09:40)
[2024-08-14] MEDS: FOLIC ACID 1 MG TABLET PO (09:41)
[2024-08-14] MEDS: THIAMINE 100 MG TABLET PO (09:41)
[2024-08-14] MEDS: SENNA TABLET 1 TAB PO (09:41)
[2024-08-14] MEDS: INSULIN GLARGINE (Lantus) 5 UNIT/0.05 ML (PER 5 UNITS) 10 UNIT SC (09:41)
--- NOTE | 2024-08-14 10:15 | PC.SS ---
Follow up note: Pt is d/c for today and will return to [place].
--- NOTE | 2024-08-14 10:32 | PD.IMPROG ---
Documentation for date of: 08/14/24 Exam Vital Signs Temp Pulse Resp BP Pulse Ox O2 Del Method O2 Flow Rate 97.6 F 86 17 172/101 H 96 Room Air 3 08/14/24 08:00 08/14/24 09:40 08/14/24 08:00 08/14/24 09:40 08/14/24 08:00 08/14/24 08:00 08/14/24 04:00 Objective Labs 08/14/24 05:00 08/14/24 05:00 Labs: Laboratory Results - last 24 hr 08/13/24 08/13/24 08/14/24 18:32 22:40 05:00 WBC 9.1 D RBC 4.41 L Hgb 9.3 L Hct 28.5 L MCV 65 L MCH 21.1 L MCHC 32.6 RDW Std Deviation 53.4 H Plt Count 189 Neut % (Auto) 75 Lymph % (Auto) 13 [place] % (Auto) 6 Eos % (Auto) 6 Baso % (Auto) 1 Neut # (Auto) 6.8 Lymph # (Auto) 1.1 [place] # (Auto) 0.5 Eos # (Auto) 0.6 H Baso # (Auto) 0.1 Immature Gran # (Auto) 0.03 H Absolute Nucleated RBC 0.00 Immature Gran % 0 Nucleated RBC % 0 PT 11.9 INR 1.1 Sodium 139 Potassium 4.4 D Chloride 103 Carbon Dioxide 24.5 Anion Gap 12 BUN 19 Creatinine 1.1 Estim Creat Clear Calc 58.6 L eGFR > 60 BUN/Creatinine Ratio 17 Glucose 158 H Calculated Osmolality 282 Calcium 8.4 Corrected Calcium 8.8 Phosphorus 3.4 Magnesium 1.7 Total Bilirubin 0.6 D ALT 11 Alkaline Phosphatase 81 Total Protein 6.5 Albumin 3.5 Globulin 3.0 Albumin/Globulin Ratio 1.2 Ur Collection Type Clean Catch Urine Color Lt-Yellow Urine Clarity Clear Urine pH 6.0 Ur Specific [place] 1.013 Urine Protein 2+ A Urine Glucose (UA) 1+ A Urine Ketones Negative Urine Blood 1+ A Urine Nitrite Negative Urine Bilirubin Negative Urine Urobilinogen (Auto) Negative Ur Leukocyte Esterase Negative Urine RBC 2 Urine WBC 1 Ur Squamous Epith Cells 0 Urine Bacteria None Assessment & Plan A&P Narrative # Acute upper GI bleed in the form of hematemesis and melena # Acute posthemorrhagic anemia requiring blood transfusion Plan IV Protonix Octreotide infusion Consent obtained for fiberoptic esophagogastroduodenoscopy with possible therapeutic intervention possible biopsy under intravenous moderate sedation from the and the family and they will proceed with the procedure other medical problems include Chronic liver disease secondary to alcohol and hepatitis C Essential hypertension Diabetes mellitus type 2 Thank you very much for the opportunity to participate in care of this patient Time Spent With Patient Time: Total time spent is greater than 50% in coordination of care (as documented) at patient's floor/unit and/or counseling patient:
--- NOTE | 2024-08-14 11:06 | PC.SS ---
Addendum entered by Hannah Garcia 08/14/24 15:13: SS has called and informed her pt has d/c to back to [facility]. was aware pt would return today. Original Note: SS was informed by bedside nurse, Tania pt has been taken off restraints at 10:45am. Pt was on restraints due to being ruthless and agitated. SS has informed Tonie from [facility] and she is still requesting for pt to d/c back today. has informed Dr. Schwartz and physician residents and they are also agreeable for pt to return to [facility] today. Tonie explained pt is confused and is not familiar with hospital staff. Tonie from [facility] states they will provide transportation at 2pm today. Tonie is aware pt was given [facility]. Perla Bear and Astrid Marin are aware [facility] will provide transportation at 2pm.
[2024-08-14] MEDS: INSULIN LISPRO (AdmeLOG) 1 UNIT/0.01 ML UNIT SC (12:16)
[2024-08-14] MEDS: Lisinopril 20 MG TABLET PO (12:26)
--- NOTE | 2024-08-14 17:27 | ESDS_ITS ---
<Statement entered by Emeterio Schwartz MD - 08/23/24 17:27> I reviewed above note and agree with findings and plans. I have also personally examined the patient with medicine team and went over assessment and plan with medical team including qa intern and resident physician. Planned Discharge Date 08/14/24 DS: Providers Provider Date of admission: 08/12/24 22:27 Primary care physician: Physician No Primary/Family Admitting Provider: Emeteiro Schwartz MD Attending Provider on Admission: Emeterio Schwartz MD Consults: 08/12/24 22:44 Consult to Gastroenterology Stat Comment: Consulting Provider: Jeremiah Silverman Attending Provider on DC: Renard Coreas MD Discharging Provider: Renard Coreas MD DS: Diagnosis Problem List Completed Was Problem List Reviewed/Reconciled?: Yes Hospital Course Hospital Course Hospital course: Mr. Handy is a 64-year-old male with past medical history significant for insulin-dependent type 2 diabetes, hypertension, diabetic neuropathy, hepatitis C and alcohol use disorder presented to [facility] ED on 08/12/2024 complaining of abdominal pain. Patient also reported episodes of melena and hematemesis. Patient endorsed to drinking about a pint and a half of liquor daily. Patient was admitted to the hospital for acute blood loss anemia. On admission patient's hemoglobin was found to be 5.7 and transfused 2 units of PRBCs. Patient was started on octreotide and Protonix drip. Slope Tender was consulted to rule out esophageal varices patient underwent endoscopy on 08/13/2024, with findings were consistent with esophageal ulcers, gastritis and erythematous duodenopathy. During hospitalization patient was also found to have acute kidney injury and was given IV fluids which resolved the ANDREI. Patient is hemodynamically stable and cleared to be discharged home to SNF. Patient has hepatitis C serology positive from previous admissions a new hepatitis viral load was ordered. Patient is advised to follow-up with primary care regarding referral to porcelain mixer and infectious disease specialist for treatment options depending on the viral load. Discharge Recommendations -Follow up outpatient with your primary care within 1 week after discharge -Please follow up with your primary care to get a referral for infectious disease specialist -Please stop drinking alcohol completely -You have been prescribed pantoprazole to prevent gastric ulcers which can causes bleeding, please take the medication 30 minutes before eating -Return to the ED or call EMS if symptoms return and/or worsen Hospitalization Diagnosis #Acute blood loss Anemia #GI bleed, likely upper, in the setting of #Alcohol use disorder #Acute Kidney injury- resolved #Hyperkalemia, resolved #Alcohol use disorder #Insulin-dependent type 2 Diabetes mellitus #Heptatitis C Assessment and plan discussed with my attending physician Dr. Lana Coreas (PGY-1)- Internal medicine resident Time Spent with Patient Time attestation: Total time spent providing and/or coordinating discharge services: Time spent: Greater than 30 minutes Exam Vital Signs Temp Pulse Resp BP Pulse Ox O2 Del Method O2 Flow Rate 97.4 F 81 17 147/86 H 96 Room Air 3 08/14/24 13:50 08/14/24 13:50 08/14/24 13:50 08/14/24 13:50 08/14/24 13:50 08/14/24 13:50 08/14/24 04:00 Narrative Exam GENERAL: A&Ox3 . Awake, Not in acute distress NEURO: no focal neurological deficits HEENT: Atraumatic, Normocephalic. mucous membranes moist. Eyes open, symmetrical, & clear HEART: Normal Heart Sounds LUNGS: Clear to auscultation with no wheezing or crackles. ABDOMEN: soft, non-distended, non-tender, bowel sounds heard, no guarding or rebound tenderness SKIN: No Rash or ecchymoses EXTREMITIES: No edema, tenderness, able to move all 4 extremities, pedal pulses palpated Discharge Plan Plan Patient Disposition: [facility] ([facility]) Patient condition on transfer: Stable Care Plan Goals: -Follow up outpatient with your primary care within 1 week after discharge -Please follow up with your primary care to get a referral for infectious disease specialist -Please stop drinking alcohol completely -You have been prescribed pantoprazole to prevent gastric ulcers which can causes bleeding, please take the medication 30 minutes before eating -Return to the ED or call EMS if symptoms return and/or worsen Prescriptions/Referrals Prescriptions/Med Rec: New bisacodyl 10 mg Suppository 10 mg SC Q72H PRN (Reason: Constipation) Qty: 30 0RF insulin glargine 100 unit/mL (3 mL) insulin pen 20 unit subcut QDAY Qty: 15 3RF lisinopril 20 mg Tablet 20 mg PO QDAY 30 Days Qty: 30 3RF pantoprazole [Protonix] 40 mg tablet,delayed release (DR/EC) 40 mg PO BID 30 Days Qty: 60 0RF Continued ferrous sulfate [Feosol] 325 mg (65 mg iron) tablet 325 mg PO QDAY metformin 500 mg tablet 1,000 mg PO BID olanzapine 15 mg tablet 10 mg PO HS Metamucil 3.4 gram/5.4 gram powder 1 tsp PO QDAY Rx Instructions: mix into at least 8 oz of water or juice before administering acetaminophen 325 mg Tablet 650 mg PO Q6H PRN (Reason: Mild Pain (Scale Score 1-4)) sennosides-docusate sodium [Senna with Docusate Sodium] 8.6-50 mg Tablet 1 tab PO BID Rx Instructions: HOLD FOR DIARRHEA gabapentin 400 mg Capsule 400 mg PO Q8H magnesium hydroxide [Milk of Magnesia] 400 mg/5 mL Suspension 30 ml PO Q72H PRN (Reason: Constipation) ascorbic acid (vitamin C) [Vitamin C] 500 mg Tablet 500 mg PO BID trazodone 100 mg tablet 50 mg PO DAILY bisacodyl 10 mg Suppository 10 mg SC Q72H PRN (Reason: Constipation) Rx Instructions: GIVE IF MOM INEFFECTIVE docusate sodium 100 mg Capsule 100 mg PO QDAY scopolamine base [Transderm-Scop] 1 mg over 3 days Patch 3 Day 1 mg TOPICAL Q72H ondansetron 4 mg Tablet,Disintegrating 4 mg PO Q6H PRN (Reason: NAUSEA OR VOMITING) tamsulosin 0.4 mg capsule 0.4 mg PO QDAY 30 Days Qty: 30 2RF Discontinued insulin glargine [Lantus Solostar U-100 Insulin] 100 unit/mL (3 mL) Insulin Pen 40 unit SUBCUT QDAY Rx Instructions: HOLD FOR BS <100 Referrals: No Primary/Family,Physician [Primary Care Provider] - Patient/Caregiver Discharge Instructions Education Materials: Abdominal Pain Print Language: Tanzanian Stand Alone Forms: [facility]ri Award Info., Patient Portal Info Letter Discharge Order Discharge Orders: Discharge (Routine); Ordered 08/14/24 Ordered By: Renard Coreas Quality Discharge Quality Measures none
== END 2024-08-14 13:50 | disposition skilled nursing facility (03) | DRG 242 ==
LOC: SERX 22:09 → SERHOLD 23:04 → S2NX 08-13 05:50
PROVIDERS: Family Medicine; Specialist; Student in an Organized Health Care Education/Training Program; Admitting Provider Internal Medicine; Emergency Provider Emergency Medicine; Visit Provider Internal Medicine
PROC: (CPT 43239; principal; 2024-08-13 19:30)
DX: K22.11 Ulcer of esophagus with bleeding (principal); B19.20 Unspecified viral hepatitis C without hepatic coma; I10 Essential (primary) hypertension; N40.0 Benign prostatic hyperplasia without lower urinary tract symptoms; F03.90 Unspecified dementia, unspecified severity, without behavioral disturbance, psychotic disturbance, mood disturbance, and anxiety; F17.210 Nicotine dependence, cigarettes, uncomplicated; E11.40 Type 2 diabetes mellitus with diabetic neuropathy, unspecified; N17.9 Acute kidney failure, unspecified; E87.5 Hyperkalemia; K29.70 Gastritis, unspecified, without bleeding; D62 Acute posthemorrhagic anemia; F10.10 Alcohol abuse, uncomplicated; K64.8 Other hemorrhoids; K70.9 Alcoholic liver disease, unspecified; Z79.4 Long term (current) use of insulin; K31.89 Other diseases of stomach and duodenum; E86.1 Hypovolemia; J40 Bronchitis, not specified as acute or chronic
CPT/HCPCS: 36415; 36430; 71045; 80053; 81001; 83036; 83735; 84100; 85014; 85018; 85025; 85610; 85730; 86850; 86900; 86901; 86923; 87081; 87522; 87811; 93005; 96374; 96375; 96376; 99291; J0696; J1200; J1815; J2060; J2250; J2354; J2470; J3010; J3475; J3490; J7030; J7050; P9016; A9270